=== PATIENT | male | born 1995 | race Caucasian/White ===

== ENCOUNTER 2016-07-26 00:25 | Observation (INO) | payer BC, OTHER ==
[2016-07-26] MEDS ORDERED: Sodium Chloride 0.9% 1000 ML 1,000 ML IV STA ×2 (00:26→01:10)
[2016-07-26] MEDS ORDERED: Sodium Chloride 0.9% 1000 ML 1,000 ML ONE ×3 (00:40→01:08)
[2016-07-26 00:41] LABS: VBG BASE EXCESS -6.1 (-2.0-2.0); VBG CARBOXYHEMOGLOBIN 3.7 % T HGB (0.0-6.9); VBG HCO3- 18.9 meq/L (22-28); VBG HEMOGLOBIN 14.4; VBG O2 SATURATION 83.1 (95-100); VBG POTASSIUM 5.3 (3.5-5.1); VBG pH 7.34 (7.32-7.42)
[2016-07-26 00:48] LABS: Mean Cell Volume 88.6 fl (78-100); Mean Corpuscular Hemoglobin 29.5 pg (26-32); Mean Platelet Volume 9.5 fl (6-9.5); Platelet Count 248 K/mm3 (150-450); Red Blood Count 4.75 M/mm3 (4.1-5.6); Red Cell Distribution Width 12.9 % (11.5-14.0); White Blood Count 7.3 K/mm3 (4.0-10.5)
[2016-07-26] MEDS ORDERED: SUBLIMAZE 100 MCG/2 ML IV ONE ×2 (00:55→02:03)
[2016-07-26] MEDS ORDERED: NITRO-BID 2% UD PACKETS TOP ONE (00:55)
[2016-07-26] MEDS ORDERED: NITRO-BID 2% UD PACKETS ONE (00:58)
[2016-07-26] MEDS ORDERED: SUBLIMAZE 100 MCG/2 ML ONE ×2 (00:58→02:05)
[2016-07-26 01:02] LABS: ALBUMIN 3.3 g/dL (3.4-5.0); ALKALINE PHOSPHATASE 91 U/L (46-116); ANION GAP 21.1 MEQ/L (5-15); BILIRUBIN,TOTAL 0.6 mg/dL (0.2-1.0); BLOOD UREA NITROGEN 18 mg/dL (9-20); CHLORIDE 94 mEq/L (98-107); Carbon Dioxide 21.2 mEq/L (21-32); MAGNESIUM 1.7 mg/dL (1.8-2.4); Potassium 5.2 mEq/L (3.5-5.1); SGOT/AST 13 U/L (15-37); SGPT/ALT 18 U/L (12-78); SODIUM 131 mEq/L (136-145); Total Protein 6.5 gm/dL (6.4-8.2)
[2016-07-26] MEDS ORDERED: NovoLOG Insulin SQ ONE (01:12)
[2016-07-26] MEDS ORDERED: NovoLOG Insulin ONE (01:16)
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
[2016-07-26 01:30] LABS: Collection Type CLEAN CATCH; Ph 5.5 (5-6)
[2016-07-26 01:31] LABS: COMPLETE URINE MICROSCOPIC? NO
[2016-07-26 01:38] LABS: Glucose 706 MG/DL (70-110)
[2016-07-26 02:26] LABS: Total Cells Counted 100
[2016-07-26 02:27] LABS: Platelet Estimate NORMAL (NORMAL)
[2016-07-26] MEDS ORDERED: TYLENOL 325 MG PO PRN (02:32)
[2016-07-26 07:05] LABS: ANION GAP 17.3 MEQ/L (5-15); BLOOD UREA NITROGEN 10 mg/dL (9-20); CHLORIDE 102 mEq/L (98-107); Carbon Dioxide 23.7 mEq/L (21-32); Glucose 275 MG/DL (70-110); SODIUM 139 mEq/L (136-145)
[2016-07-26] MEDS ORDERED: Lantus Insulin SQ SCH ×2 (07:30→22:00)
[2016-07-26] MEDS: NovoLOG Insulin SQ PRN ×2 (07:35→12:16)
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
--- NOTE | 2016-07-26 08:43 | XRAY ---
Indication: Chest pain. Comparison: February 12, 2016 Portable chest again demonstrates normal heart, lungs, and bony thorax.
[2016-07-26] MEDS: TORAdol 30 mg Injection IV PRN ×2 (08:53→15:24)
[2016-07-26 11:51] VITALS: BP 117/66; PULSE 85; O2SAT 97
--- NOTE | 2016-07-26 14:15 | PCM.DCORD ---
- Discharge Discharge Date: 07/26/16 Disposition: Home, Self-Care Condition: Fair Prescriptions: Colchicine 0.6 mg PO BID #60 capsule Ibuprofen 600 mg PO Q6H PRN #30 tablet PRN Reason: Pain Medications: Home Medications Insulin Glargine [Lantus Insulin] 22 units SQ QHS 03/06/16 [Confirmed ] Insulin Lispro [Humalog Kwikpen U-100] 0 unit SQ ACHS PRN 07/03/16 [Confirmed ] Insulin Glargine [Lantus Insulin] 28 units SQ QAM 07/26/16 [Confirmed 07/26/16] Active Inpatient Medications Acetaminophen (Tylenol 325 Mg) 650 mg PO Q4H PRN PRN PRN Reason: PAIN AND/OR FEVER Stop: 08/25/16 02:31 Last Admin: 07/26/16 04:28 Dose: 650 mg Sodium Chloride (Sodium Chloride 0.45% 1000 Ml) 1,000 mls @ 100 mls/hr IV .Q10H [facility] Stop: 08/25/16 02:31 Last Admin: 07/26/16 09:09 Dose: 100 mls/hr Insulin Aspart (Novolog Insulin) 0 unit SQ UD PRN PRN Reason: HYPERGLYCEMIA Stop: 08/25/16 03:56 Last Admin: 07/26/16 12:16 Dose: 7 unit Insulin Glargine (Lantus Insulin) 22 unit SQ HS [facility] Stop: 08/25/16 21:59 Insulin Glargine (Lantus Insulin) 28 unit SQ AMINSULIN@0730 [facility] Stop: 08/25/16 07:29 Last Admin: 07/26/16 07:35 Dose: 28 unit Ketorolac Tromethamine (Toradol 30 Mg Injection) 15 mg IV Q6H PRN PRN PRN Reason: PAIN Stop: 07/31/16 08:05 Last Admin: 07/26/16 08:53 Dose: 15 mg Follow up with: KWAME RIVERA NP [NON-STAFF PHY W/O PRIVILEGES] - 1 Week ADDY HESTER [NON-STAFF PHY W/O PRIVILEGES] - 1 Week ANANTH WHITMAN [CONSULTING PHYSICIAN] - 1 Week
== END 2016-07-26 16:07 | disposition home or self-care (01) ==
LOC: ED 00:25 → MED SURG 02:30
PROVIDERS: ADMIT Family Medicine; ATTEND Family Medicine
DX: R07.9 Chest pain, unspecified (principal); E10.65 Type 1 diabetes mellitus with hyperglycemia; Z79.4 Long term (current) use of insulin; F98.8 Other specified behavioral and emotional disorders with onset usually occurring in childhood and adolescence; Z72.0 Tobacco use
CPT/HCPCS: 36000; 36415; 71010; 80048; 80053; 80307; 81002; 82805; 82947; 82962; 83036; 83735; 84484; 85025; 93005; 93041; 93268; 93306; 94760; 96360; 96372; 96374; 96376; 99284; G0378; J1885; J3010

== ENCOUNTER 2016-07-27 20:40 | Emergency (ER) | payer BC, OTHER ==
[2016-07-27] MEDS ORDERED: Sodium Chloride 0.9% 1000 ML 1,000 ML IV STA ×2 (20:55→22:12)
[2016-07-27] MEDS ORDERED: Sodium Chloride 0.9% 1000 ML 1,000 ML ONE ×2 (21:04→22:19)
[2016-07-27 21:05] LABS: VBG BASE EXCESS -1.9 (-2.0-2.0); VBG CARBOXYHEMOGLOBIN 2.8 % T HGB (0.0-6.9); VBG HCO3- 22.3 meq/L (22-28); VBG O2 SATURATION 98.1 (95-100); VBG POTASSIUM 4.5 (3.5-5.1); VBG pH 7.4 (7.32-7.42)
[2016-07-27 21:07] LABS: Mean Cell Volume 85.8 fl (78-100); Mean Corpuscular Hemoglobin 29.3 pg (26-32); Mean Platelet Volume 9.1 fl (6-9.5); Platelet Count 273 K/mm3 (150-450); Red Blood Count 5.15 M/mm3 (4.1-5.6); Red Cell Distribution Width 12.9 % (11.5-14.0); White Blood Count 10.2 K/mm3 (4.0-10.5)
[2016-07-27 21:30] LABS: ALBUMIN 3.4 g/dL (3.4-5.0); ALKALINE PHOSPHATASE 116 U/L (46-116); ANION GAP 20.4 MEQ/L (5-15); BILIRUBIN,TOTAL 0.3 mg/dL (0.2-1.0); BLOOD UREA NITROGEN 12 mg/dL (9-20); CHLORIDE 97 mEq/L (98-107); Carbon Dioxide 21.8 mEq/L (21-32); Glucose 381 MG/DL (70-110); Potassium 4.5 mEq/L (3.5-5.1); SGOT/AST 27 U/L (15-37); SGPT/ALT 22 U/L (12-78); SODIUM 135 mEq/L (136-145); Total Protein 7.2 gm/dL (6.4-8.2)
[2016-07-27 21:54] LABS: ATYPICAL LYMPHS 48 %; BAND 6 % (0.0-2.0); Platelet Estimate NORMAL (NORMAL); Total Cells Counted 100
[2016-07-27] MEDS ORDERED: SUBLIMAZE 100 MCG/2 ML IV ONE (22:13)
[2016-07-27] MEDS ORDERED: SUBLIMAZE 100 MCG/2 ML ONE (22:19)
[2016-07-27 23:10] LABS: ACETAMINOPHEN < 2.0 ug/ml (10-30)
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
[2016-07-27] MEDS ORDERED: NovoLOG Insulin SQ ONE (23:30)
[2016-07-27 23:36] LABS: COMPLETE URINE MICROSCOPIC? NO; Collection Type VOID; Ph 7.5 (5-6)
[2016-07-27] MEDS ORDERED: Lantus Insulin ONE (23:48)
[2016-07-27 23:54] VITALS: PULSE 80
[2016-07-28 02:47] VITALS: O2SAT 98
[2016-07-28 03:36] VITALS: BP 130/80
--- NOTE | 2016-07-28 10:02 | XRAY ---
Indication: Chest and back pain. Short of breath. Multiple contiguous axial images obtained through the chest using 80 cc Isovue 370 contrast. Comparison: May 19, 2014 Lungs remain inflated without nodule, infiltrate, consolidation, or effusion. Heart is not enlarged. Aorta is normal in course and caliber. No pathologic mediastinal/hilar lymphadenopathy. Bony thorax intact. Limited upper abdomen including adrenal glands unremarkable. Impression: Stable negative CT chest with contrast exam. Comment: Preliminary interpretation was made by [facility]. No discrepancy. CT DI is 13.20
--- NOTE | 2016-07-28 10:02 | XRAY ---
Indication: Chest/back pain. Comparison: One day earlier. Portable chest again demonstrates normal heart, lungs, and bony thorax.
[2016-07-28] MEDS ORDERED: Lantus Insulin SQ ONE (23:31)
== END 2016-07-28 03:38 | disposition home or self-care (01) ==
LOC: ED 20:40
DX: R07.2 Precordial pain (principal); E10.69 Type 1 diabetes mellitus with other specified complication; F32.9 Major depressive disorder, single episode, unspecified
CPT/HCPCS: 36000; 36415; 71010; 71260; 80053; 80307; 81002; 82805; 82947; 82962; 83605; 84484; 85025; 86308; 87040; 87086; 90791; 93005; 93041; 94760; 96360; 96361; 96372; 96374; 99284; J3010; Q3014

== ENCOUNTER 2016-10-17 21:21 | Emergency (ER) | payer BC, OTHER ==
[2016-10-17] MEDS ORDERED: TYLENOL 325 MG PO ONE (21:38)
[2016-10-17] MEDS ORDERED: TYLENOL 325 MG ONE (21:41)
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
[2016-10-17] MEDS ORDERED: ULTRAM 50 MG PO ONE (22:53)
[2016-10-17] MEDS ORDERED: Rocephin 1000 MG INJ IM ONE (22:53)
[2016-10-17] MEDS ORDERED: XYLOCAINE 1% HCL 20 ML MDV ONE (23:06)
[2016-10-17] MEDS ORDERED: Rocephin 1000 MG INJ ONE (23:06)
[2016-10-17] MEDS ORDERED: ULTRAM 50 MG ONE (23:06)
[2016-10-17 23:40] VITALS: BP 135/79; PULSE 72; O2SAT 97
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
== END 2016-10-17 23:35 | disposition home or self-care (01) ==
LOC: ED 21:21
DX: S02.2XXA Fracture of nasal bones, initial encounter for closed fracture (principal); Y04.0XXA Assault by unarmed brawl or fight, initial encounter
CPT/HCPCS: 70450; 70486; 71100; 72125; 96372; 99284; J0696; A9270-GY

== ENCOUNTER 2017-05-13 15:00 | Inpatient (IN) | payer BC, OTHER ==
[2017-05-13] MEDS ORDERED: Lactated Ringers 1,000 ML IV ONE ×4 (15:23→16:03)
[2017-05-13] MEDS ORDERED: Sodium Chloride 0.9% 1000 ML 1,000 ML IV STA (15:23)
[2017-05-13] MEDS ORDERED: Sodium Chloride 0.9% 1000 ML 1,000 ML ONE (15:28)
[2017-05-13 15:30] LABS: Lactic Acid 1.7 (0.4-2.0)
[2017-05-13 15:31] LABS: VBG BASE EXCESS -18.9 (-2.0-2.0); VBG CARBOXYHEMOGLOBIN 1.6 % T HGB (0.0-6.9); VBG HCO3- 7.8 meq/L (22-28); VBG HEMOGLOBIN 16.1; VBG O2 SATURATION 90.7 (95-100); VBG POTASSIUM 4.3 (3.5-5.1)
[2017-05-13 15:32] LABS: VBG pH 7.16 (7.32-7.42)
[2017-05-13 15:38] LABS: BASOPHIL % 0.2 % (0.0-0.4); Granulocytes % 84.1 % (36.0-66.0); Lymphocytes % 11.3 % (24.0-44.0); Mean Cell Volume 85.1 fl (78-100); Mean Corpuscular Hemoglobin 27.8 pg (26-32); Mean Platelet Volume 9.7 fl (6-9.5); Monocytes % 4.4 % (0.0-12.0); Platelet Count 295 K/mm3 (150-450); Red Blood Count 5.43 M/mm3 (4.1-5.6); Red Cell Distribution Width 13.3 % (11.5-14.0); White Blood Count 8.1 K/mm3 (4.0-10.5)
[2017-05-13] MEDS ORDERED: NovoLIN R ONE ×3 (15:44→22:36)
[2017-05-13] MEDS ORDERED: Sodium Chloride 0.9% 100 ML IVPB 100 ML IV ONE ×3 (15:45→22:36)
[2017-05-13] MEDS ORDERED: NOVOLIN R INSULIN (FOR DRIPS)** 100 UNITS in Sodium Chloride 0.9% 100 ML IVPB 100 ML IV SCH (15:45)
[2017-05-13 15:48] LABS: Bilirubin NEGATIVE (NEGATIVE); Blood NEGATIVE Ery/ul (0-5); COMPLETE URINE MICROSCOPIC? YES; Collection Type CCMS; Glucose 1000 mg/dL (NEGATIVE); Leukocyte Esterase NEGATIVE (NEGATIVE)
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
[2017-05-13 15:59] LABS: ALBUMIN 4.1 g/dL (3.4-5.0); ALKALINE PHOSPHATASE 174 U/L (46-116); ANION GAP 35.1 MEQ/L (5-15); BLOOD UREA NITROGEN 21 mg/dL (9-20); CHLORIDE 93 mEq/L (98-107); Glucose 342 MG/DL (70-110); SGOT/AST 23 U/L (15-37); SGPT/ALT 11 U/L (12-78); SODIUM 133 mEq/L (136-145); Total Protein 8.7 gm/dL (6.4-8.2)
[2017-05-13] MEDS ORDERED: ROCEPHIN 1 Gm-D5w 50 ml Bag** 1 G/50 ML IVPB IV STA (15:59)
[2017-05-13] MEDS ORDERED: CLINDAMYCIN-D5W 900 MG/50 ML*** 900 MG/50 ML BAG IV STA (15:59)
[2017-05-13 16:00] LABS: Bacteria FEW /HPF (NEGATIVE); Epithelial Cells FEW /HPF (FEW); Mucus SLIGHT /HPF (NEGATIVE); WBC 0-2 /HPF (0-5)
[2017-05-13] MEDS ORDERED: ROCEPHIN 1 Gm-D5w 50 ml Bag** 1 G/50 ML IVPB IV ONE (16:03)
[2017-05-13 16:04] LABS: Carbon Dioxide 9.8 mEq/L (21-32)
[2017-05-13 16:15] LABS: ADD URINE CULTURE? NO (NO)
[2017-05-13] MEDS ORDERED: CLINDAMYCIN-D5W 900 MG/50 ML*** 900 MG/50 ML BAG IV ONE (16:34)
[2017-05-13] MEDS ORDERED: Sodium Chloride 0.9% 1000 ML 1,000 ML IV SCH (17:18)
[2017-05-13] MEDS ORDERED: TYLENOL 325 MG PO PRN (17:18)
[2017-05-13] MEDS ORDERED: D5W/0.45NS W/ 20mEq KCl 1000 ML 1,000 ML IV ONE (17:28)
[2017-05-13] MEDS: D5W/0.45NS W/ 20mEq KCl 1000 ML 1,000 ML IV SCH (17:54)
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
--- NOTE | 2017-05-13 19:56 | XRAY ---
Indication: DKA. Comparison: July 27, 2016. Portable chest again demonstrates normal heart, lungs, and bony thorax.
[2017-05-13 21:27] LABS: VBG BASE EXCESS -3.4 (-2.0-2.0); VBG CARBOXYHEMOGLOBIN 1.8 % T HGB (0.0-6.9); VBG HCO3- 21.4 meq/L (22-28); VBG O2 SATURATION 71.2 (95-100); VBG POTASSIUM 3.7 (3.5-5.1); VBG pH 7.37 (7.32-7.42)
[2017-05-13 21:49] LABS: ANION GAP 16.7 MEQ/L (5-15); BLOOD UREA NITROGEN 14 mg/dL (9-20); CHLORIDE 100 mEq/L (98-107); Carbon Dioxide 22.1 mEq/L (21-32); Glucose 259 MG/DL (70-110); PHOSPHOROUS 2.1 mg/dL (2.6-4.7); Potassium 3.7 mEq/L (3.5-5.1); SODIUM 135 mEq/L (136-145)
[2017-05-13] MEDS: Pepcid 20 MG VIAL IV SCH (23:01)
[2017-05-13] MEDS: CLINDAMYCIN-D5W 900 MG/50 ML*** 900 MG/50 ML BAG IV SCH (23:01)
[2017-05-13] MEDS ORDERED: NOVOLIN R INSULIN (FOR DRIPS)** 100 UNITS in Sodium Chloride 0.9% 100 ML IVPB 100 ML IV PRN (23:38)
[2017-05-14] MEDS: D5W/0.45NS W/ 20mEq KCl 1000 ML 1,000 ML IV SCH ×2 (01:30→08:14)
[2017-05-14 05:32] LABS: VBG BASE EXCESS -2.6 (-2.0-2.0); VBG CARBOXYHEMOGLOBIN 2.8 % T HGB (0.0-6.9); VBG HCO3- 23.2 meq/L (22-28); VBG HEMOGLOBIN 12.7; VBG O2 SATURATION 79.8 (95-100); VBG POTASSIUM 3.8 (3.5-5.1); VBG pH 7.34 (7.32-7.42)
[2017-05-14 06:00] LABS: BASOPHIL % 0.5 % (0.0-0.4); Eosinophil % 0.9 % (0.00-5.0); Granulocytes % 33.6 % (36.0-66.0); Lymphocytes % 47.7 % (24.0-44.0); Mean Cell Volume 84.4 fl (78-100); Mean Corpuscular Hemoglobin 27.8 pg (26-32); Mean Platelet Volume 9.2 fl (6-9.5); Monocytes % 17.3 % (0.0-12.0); Platelet Count 256 K/mm3 (150-450); Red Blood Count 4.49 M/mm3 (4.1-5.6); Red Cell Distribution Width 13.4 % (11.5-14.0); White Blood Count 4.4 K/mm3 (4.0-10.5)
[2017-05-14 06:28] LABS: ALBUMIN 2.6 g/dL (3.4-5.0); ALKALINE PHOSPHATASE 108 U/L (46-116); ANION GAP 11.7 MEQ/L (5-15); BLOOD UREA NITROGEN 10 mg/dL (9-20); CHLORIDE 103 mEq/L (98-107); Carbon Dioxide 24.7 mEq/L (21-32); Glucose 211 MG/DL (70-110); Potassium 3.9 mEq/L (3.5-5.1); SGOT/AST 12 U/L (15-37); SGPT/ALT 13 U/L (12-78); SODIUM 136 mEq/L (136-145); Total Protein 6.1 gm/dL (6.4-8.2)
[2017-05-14] MEDS: CLINDAMYCIN-D5W 900 MG/50 ML*** 900 MG/50 ML BAG IV SCH ×2 (06:35→13:04)
[2017-05-14] MEDS: POTASSIUM CHLORIDE 20 mEq IN WATER 100ML 20 MEQ/100 ML BAG IV SCH ×2 (08:05→11:09)
[2017-05-14] MEDS ORDERED: NovoLOG Insulin SQ PRN (08:56)
[2017-05-14] MEDS: Pepcid 20 MG VIAL IV SCH (09:19)
[2017-05-14] MEDS ORDERED: ROCEPHIN 1 Gm-D5w 50 ml Bag** 1 G/50 ML IVPB IV SCH (10:00)
[2017-05-14] MEDS ORDERED: Lantus Insulin SQ SCH ×2 (10:00→22:00)
[2017-05-14 12:46] VITALS: BP 138/88; PULSE 77; O2SAT 98
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
[2017-05-15] MEDS ORDERED: FLUCELVAX QUAD 2017-2018 SYR IM ONE (10:00)
== END 2017-05-14 15:00 | disposition home or self-care (01) | DRG 639 ==
LOC: ED 15:00 → ICU 17:16
PROVIDERS: ADMIT Family Medicine; ATTEND Family Medicine
DX: E10.10 Type 1 diabetes mellitus with ketoacidosis without coma (principal); K04.7 Periapical abscess without sinus; F90.9 Attention-deficit hyperactivity disorder, unspecified type; Z89.422 Acquired absence of other left toe(s)
CPT/HCPCS: 36000; 36415; 71010; 80048; 80053; 81000; 82550; 82805; 82947; 82962; 83605; 83735; 84100; 85025; 87040; 93005; 93041; 96360; 96361; 96365; 96368; 99285; J0696; J1815; J3480; A9270-GY

== ENCOUNTER 2017-07-21 16:12 | Emergency (ER) | payer BC, OTHER ==
[2017-07-21 16:23] VITALS: BP 137/88; PULSE 98; O2SAT 98
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
== END 2017-07-21 16:55 | disposition home or self-care (01) ==
LOC: ED 16:12
DX: K13.0 Diseases of lips (principal); R51 Headache; E10.9 Type 1 diabetes mellitus without complications; Z79.4 Long term (current) use of insulin

== ENCOUNTER 2017-07-23 12:39 | Emergency (ER) | payer BC, OTHER ==
[2017-07-23] MEDS ORDERED: ZOVIRAX 200 MG ONE (12:49)
[2017-07-23 12:50] VITALS: BP 134/89; PULSE 78; O2SAT 96
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
[2017-07-23] MEDS ORDERED: ZOVIRAX 800 MG PO SCH (15:00)
== END 2017-07-23 13:05 | disposition home or self-care (01) ==
LOC: ED 12:39
DX: B00.1 Herpesviral vesicular dermatitis (principal)
CPT/HCPCS: 99283; A9270-GY

== ENCOUNTER 2017-09-18 13:39 | Emergency (ER) | payer BC, OTHER ==
[2017-09-18] MEDS ORDERED: MOTRIN 400 MG PO ONE (14:38)
[2017-09-18] MEDS ORDERED: MOTRIN 400 MG ONE (14:40)
[2017-09-18 14:51] VITALS: BP 128/80; PULSE 94; O2SAT 98
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
== END 2017-09-18 15:09 | disposition home or self-care (01) ==
LOC: ED 13:39
DX: M54.32 Sciatica, left side (principal); E11.9 Type 2 diabetes mellitus without complications; Z79.4 Long term (current) use of insulin
CPT/HCPCS: 99282; A9270-GY

== ENCOUNTER 2017-11-27 20:26 | Emergency (ER) | payer BC, OTHER ==
[2017-11-27 20:38] VITALS: BP 130/83; PULSE 83; O2SAT 97
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
[2017-11-27] MEDS ORDERED: DELTASONE 20 MG PO ONE (21:16)
[2017-11-27] MEDS ORDERED: DELTASONE 20 MG ONE (21:18)
== END 2017-11-27 21:23 | disposition home or self-care (01) ==
LOC: ED 20:26
DX: L25.9 Unspecified contact dermatitis, unspecified cause (principal)
CPT/HCPCS: 99283; A9270-GY

== ENCOUNTER 2017-11-29 22:48 | Observation (INO) | payer BC, OTHER ==
[2017-11-29] MEDS ORDERED: Nitrostat 0.4 MG (ED) SL ONE ×2 (23:13→23:22)
[2017-11-29] MEDS ORDERED: BABY ASPIRIN 81 MG CHEW PO ONE (23:13)
[2017-11-29] MEDS ORDERED: Sodium Chloride 0.9% 1000 ML 1,000 ML IV STA ×2 (23:13→23:56)
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
[2017-11-29] MEDS ORDERED: Sodium Chloride 0.9% 1000 ML 1,000 ML ONE ×2 (23:22→23:54)
[2017-11-29] MEDS ORDERED: BABY ASPIRIN 81 MG CHEW ONE (23:22)
[2017-11-29 23:26] LABS: BASOPHIL % 0.3 % (0.0-0.4); Basophil (Absolute #) 0.03 (0-0.4); Eosinophil % 7.5 % (0.00-5.0); Eosinophil (Absolute #) 0.67 (0-0.5); Granulocyte Absolute (ANC) 4.39 (1.4-6.9); Granulocytes % 49.1 % (36.0-66.0); Hematocrit 45.5 % (42-50); Hemoglobin 15.7 gm/dl (12.5-18.0); Lymphocyte (Absolute #) 3.37 (1.0-4.6); Lymphocytes % 37.7 % (24.0-44.0); Mean Cell Volume 85.5 fl (78-100); Mean Corpuscular Hemoglobin 29.5 pg (26-32); Mean Corpuscular Hgb Concent. 34.5 g/dl (32-36); Mean Platelet Volume 9.9 fl (6-9.5); Monocyte (Absolute #) 0.48 (0.0-1.3); Monocytes % 5.4 % (0.0-12.0); Platelet Count 317 K/mm3 (150-450); Red Blood Count 5.32 M/mm3 (4.1-5.6); Red Cell Distribution Width 12.9 % (11.5-14.0); White Blood Count 8.9 K/mm3 (4.0-10.5)
[2017-11-29 23:39] LABS: ALBUMIN 4.4 g/dL (3.5-5.0); ALKALINE PHOSPHATASE 81 U/L (38-126); ANION GAP 18.3 MEQ/L (5-15); BLOOD UREA NITROGEN 18 mg/dL (9-20); CHLORIDE 90 mmol/L (98-107); Calcium 9.7 mg/dL (8.4-10.2); Carbon Dioxide 24 mmol/L (22-30); Creatinine 1 0.98 mg/dL (0.66-1.25); Potassium 4.8 mmol/L (3.5-5.1); SGOT/AST 13 U/L (17-59); SGPT/ALT 13 U/L (0-50); SODIUM 128 mmol/L (137-145); Total Protein 7.2 g/dL (6.3-8.2)
[2017-11-29 23:41] LABS: INR 0.96 (0.8-3.0)
[2017-11-29 23:48] LABS: D-DIMER QUANTITATION < 215 ng/mL (215-500)
[2017-11-29 23:49] LABS: Glucose 784 mg/dL (74-106)
[2017-11-29] MEDS ORDERED: NovoLIN R IV ONE (23:53)
[2017-11-29] MEDS ORDERED: NovoLIN R ONE (23:59)
[2017-11-30 00:31] LABS: Appearance CLEAR (CLEAR); Bilirubin NEGATIVE (NEGATIVE); Blood NEGATIVE Ery/ul (0-5); Glucose 1000 mg/dL (NEGATIVE); Ketones NEGATIVE (NEGATIVE); Leukocyte Esterase NEGATIVE (NEGATIVE); Nitrite NEGATIVE (NEGATIVE); Protein,Urine Dip NEGATIVE (Negative); Urobilinogen NORMAL mg/dL (0-1)
[2017-11-30 00:38] LABS: VBG BASE EXCESS 1.3 (-2.0-2.0); VBG CARBOXYHEMOGLOBIN 1.6 % T HGB (0.0-6.9); VBG HCO3- 25.9 meq/L (22-28); VBG O2 SATURATION 96.1 (95-100); VBG POTASSIUM 3.3 (3.5-5.1); VBG pH 7.42 (7.32-7.42)
[2017-11-30 00:44] LABS: Amphetamine,Urine NEGATIVE (NEGATIVE); Barbiturate,Urine NEGATIVE (NEGATIVE); Benzodiazepine,Urine NEGATIVE (NEGATIVE); Cocaine,Urine NEGATIVE (NEGATIVE); Methadone,Urine NEGATIVE (NEGATIVE); Opiate,Urine NEGATIVE (NEGATIVE); PCP,Urine NEGATIVE (NEGATIVE); THC,Urine NEGATIVE (NEGATIVE)
[2017-11-30] MEDS ORDERED: NOVOLIN R INSULIN (FOR DRIPS)** 100 UNITS in Sodium Chloride 0.9% 100 ML IVPB 100 ML IV SCH (00:45)
[2017-11-30] MEDS ORDERED: Sodium Chloride 0.9% 100 ML IVPB 100 ML IV ONE (00:46)
[2017-11-30] MEDS ORDERED: NovoLIN R ONE (00:46)
[2017-11-30] MEDS: D5W/0.45NS W/ 20mEq KCl 1000 ML 1,000 ML IV SCH ×2 (01:27→06:52)
[2017-11-30 01:33] LABS: ANION GAP 14.9 MEQ/L (5-15); BLOOD UREA NITROGEN 17 mg/dL (9-20); CHLORIDE 102 mmol/L (98-107); Calcium 9.5 mg/dL (8.4-10.2); Carbon Dioxide 28 mmol/L (22-30); Glucose 132 mg/dL (74-106); PHOSPHOROUS 3.7 mg/dL (2.5-4.5); Potassium 3.7 mmol/L (3.5-5.1); SODIUM 141 mmol/L (137-145)
[2017-11-30] MEDS ORDERED: TYLENOL 325 MG PO PRN (02:06)
[2017-11-30] MEDS ORDERED: Zofran 4 MG/2 ML VIAL IV PRN (02:06)
[2017-11-30] MEDS ORDERED: Nitrostat 0.4 MG Tablet SL PRN (02:10)
[2017-11-30] MEDS ORDERED: Sodium Chloride 0.9% 1000 ML 1,000 ML IV SCH (02:15)
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
--- NOTE | 2017-11-30 09:46 | XRAY ---
Indication: Chest pain. Comparison: May 13, 2017. Portable chest again demonstrates normal heart, lungs, and bony thorax.
[2017-11-30] MEDS ORDERED: DELTASONE 20 MG PO SCH (10:00)
[2017-11-30] MEDS ORDERED: ECOTRIN 81 MG PO SCH (10:00)
[2017-11-30] MEDS ORDERED: Ecotrin 325 MG PO SCH (10:00)
[2017-11-30] MEDS ORDERED: Lantus Insulin SQ SCH ×2 (10:00→22:00)
[2017-11-30] MEDS: NovoLIN R SQ PRN ×2 (11:34→16:10)
[2017-11-30] MEDS: BENADRYL 25 MG CAPSULE PO PRN ×2 (12:02→20:13)
[2017-11-30 15:37] VITALS: BP 117/68; PULSE 68; O2SAT 97
[2017-11-30] MEDS: Lopressor 25MG Tab PO SCH ×2 (17:40→20:13)
--- NOTE | 2017-11-30 19:13 | PCM.DCORD ---
- Discharge Discharge Date: 11/30/17 Disposition: Home, Self-Care Condition: Stable Prescriptions: New Diphenhydramine HCl 25 mg [Benadryl 25 mg Capsule] 25 mg PO Q4H PRN PRN capsule PRN Reason: Itching Aspirin EC 81 mg [Ecotrin 81 mg] 81 mg PO DAILY #30 Triamcinolone 0.1% Cream [Kenalog 0.1% Cream 15 gm] 1 applic TP BID PRN #80 g PRN Reason: Itching Metoprolol Tartrate 25 mg [Lopressor 25MG Tab] 12.5 mg PO BID #15 tab Continue Insulin Glargine [Lantus Insulin] 22 units SQ QAM Insulin Lispro [Humalog Kwikpen U-100] 0 unit SQ ACHS PRN PRN Reason: Diabetes Insulin Glargine [Lantus Insulin] 28 units SQ HS Discontinued Ibuprofen [IBUPROFEN 400 MG TABLET] 1 tablet PO TID PRN #14 tablet Prednisone 20 mg [Deltasone 20 mg] 3 tab PO DAILY #12 tablet Additional Instructions: Follow up with Dr. Grigsby after stress test complete. Call for appointment. have fasting lipid panel drawn in the am Follow up with: CUBA GRIGSBY [ACTIVE STAFF] - Call for Appointment ADDY HESTER [NON-STAFF PHY W/O PRIVILEGES] - 1 Week
--- NOTE | 2017-12-01 08:13 | ECHO ---
Transthoracic echocardiographic examination and color Doppler was done on 11/30/2017. INDICATION: Chest pain. IMPRESSION: 1) NO REGIONAL WALL MOTION ABNORMALITY. ESTIMATED GLOBAL LEFT VENTRICULAR EJECTION FRACTION OF AROUND 60%. 2) TRACE TRICUSPID REGURGITATION. RIGHT VENTRICULAR SYSTOLIC PRESSURE OF 32 MM OF MERCURY. The left ventricle is visualized and demonstrated adequate motion of all the segments. Estimated global left ventricular ejection fraction 60%. The left ventricular thickness is normal. The mitral valve is seen and this opens adequately. There is no mitral regurgitation. Left atrium is normal. The aortic valve opens adequately. The right sided chambers are normal. There is trace tricuspid regurgitation. The right ventricular systolic pressure of 32 mm of Mercury. No pericardial effusion is seen.
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
== END 2017-11-30 20:30 | disposition home or self-care (01) ==
LOC: ED 22:48 → MED SURG 11-30 03:01
PROVIDERS: ADMIT Family Medicine; ATTEND Family Medicine
DX: R07.9 Chest pain, unspecified (principal); I42.9 Cardiomyopathy, unspecified; E10.8 Type 1 diabetes mellitus with unspecified complications; Z87.891 Personal history of nicotine dependence
CPT/HCPCS: 36000; 36415; 71045; 80048; 80053; 80307; 81002; 82805; 82962; 83036; 84100; 84484; 85025; 85379; 85610; 93005; 93268; 93306; 96360; 96361; 96365; 96374; 99285; A9270-GY; G0378

== ENCOUNTER 2018-03-19 15:20 | Emergency (ER) | payer BC, OTHER ==
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
[2018-03-19 17:06] LABS: BASOPHIL % 0.2 % (0.0-0.4); Basophil (Absolute #) 0.02 (0-0.4); Eosinophil % 0.2 % (0.00-5.0); Eosinophil (Absolute #) 0.03 (0-0.5); Granulocyte Absolute (ANC) 9.79 (1.4-6.9); Granulocytes % 74.3 % (36.0-66.0); Hematocrit 45.3 % (42-50); Hemoglobin 15.4 gm/dl (12.5-18.0); Lymphocyte (Absolute #) 2.84 (1.0-4.6); Lymphocytes % 21.6 % (24.0-44.0); Mean Cell Volume 86.6 fl (78-100); Mean Corpuscular Hemoglobin 29.4 pg (26-32); Mean Platelet Volume 8.8 fl (6-9.5); Monocyte (Absolute #) 0.49 (0.0-1.3); Monocytes % 3.7 % (0.0-12.0); Platelet Count 358 K/mm3 (150-450); Red Blood Count 5.23 M/mm3 (4.1-5.6); Red Cell Distribution Width 13.8 % (11.5-14.0); White Blood Count 13.2 K/mm3 (4.0-10.5)
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
[2018-03-19 17:24] LABS: ALBUMIN 4.6 g/dL (3.5-5.0); ALKALINE PHOSPHATASE 107 U/L (38-126); ANION GAP 15.4 MEQ/L (5-15); BLOOD UREA NITROGEN 25 mg/dL (9-20); CHLORIDE 104 mmol/L (98-107); Calcium 9.9 mg/dL (8.4-10.2); Carbon Dioxide 27 mmol/L (22-30); Creatinine 1 1.24 mg/dL (0.66-1.25); Glucose 134 mg/dL (74-106); SGOT/AST 16 U/L (17-59); SGPT/ALT 17 U/L (0-50); SODIUM 142 mmol/L (137-145); Total Protein 7.5 g/dL (6.3-8.2)
[2018-03-19 18:09] LABS: Appearance CLEAR (CLEAR); Bilirubin NEGATIVE (NEGATIVE); Blood NEGATIVE Ery/ul (0-5); Glucose 1000 mg/dL (NEGATIVE); Ketones SMALL (NEGATIVE); Leukocyte Esterase NEGATIVE (NEGATIVE); Nitrite NEGATIVE (NEGATIVE); Protein,Urine Dip NEGATIVE (Negative); Urobilinogen NORMAL mg/dL (0-1)
[2018-03-19 18:26] VITALS: BP 131/91; PULSE 91; O2SAT 97
== END 2018-03-19 18:25 | disposition home or self-care (01) ==
LOC: ED 15:20
DX: S39.92XA Unspecified injury of lower back, initial encounter (principal); M54.5 Low back pain; M79.605 Pain in left leg; R07.89 Other chest pain; V86.55XA Driver of 3- or 4- wheeled all-terrain vehicle (ATV) injured in nontraffic accident, initial encounter
CPT/HCPCS: 36415; 71046; 72131; 73552; 76376; 80053; 81002; 85025; 99284

== ENCOUNTER 2018-08-20 13:24 | Emergency (ER) | payer BC, OTHER ==
[2018-08-20] MEDS ORDERED: Sodium Chloride 0.9% 1000 ML 1,000 ML IV STA ×2 (14:05→14:07)
[2018-08-20] MEDS ORDERED: Zofran 4 MG/2 ML VIAL IV ONE (14:05)
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
[2018-08-20 14:27] LABS: VBG BASE EXCESS -0.5 (-2.0-2.0); VBG CARBOXYHEMOGLOBIN 1.9 % T HGB (0.0-6.9); VBG HCO3- 25.4 meq/L (22-28); VBG HEMOGLOBIN 15.4; VBG O2 SATURATION 48.4 (95-100); VBG POTASSIUM 3.8 (3.5-5.1); VBG pH 7.36 (7.32-7.42)
[2018-08-20 14:40] LABS: BASOPHIL % 0.1 % (0.0-0.4); Basophil (Absolute #) 0.01 (0-0.4); Eosinophil % 0.5 % (0.00-5.0); Eosinophil (Absolute #) 0.04 (0-0.5); Granulocyte Absolute (ANC) 6.49 (1.4-6.9); Granulocytes % 83.1 % (36.0-66.0); Hemoglobin 15.1 gm/dl (12.5-18.0); Lymphocyte (Absolute #) 0.84 (1.0-4.6); Lymphocytes % 10.7 % (24.0-44.0); Mean Corpuscular Hemoglobin 28.6 pg (26-32); Mean Corpuscular Hgb Concent. 32.1 g/dl (32-36); Mean Platelet Volume 9.4 fl (6-9.5); Monocyte (Absolute #) 0.44 (0.0-1.3); Monocytes % 5.6 % (0.0-12.0); Platelet Count 358 K/mm3 (150-450); Red Blood Count 5.28 M/mm3 (4.1-5.6); Red Cell Distribution Width 14.9 % (11.5-14.0); White Blood Count 7.8 K/mm3 (4.0-10.5)
[2018-08-20] MEDS ORDERED: Zofran 4 MG/2 ML VIAL ONE (14:48)
[2018-08-20] MEDS ORDERED: Sodium Chloride 0.9% 1000 ML 2,000 ML ONE (14:48)
[2018-08-20 14:57] LABS: ALBUMIN 4.2 g/dL (3.5-5.0); ALKALINE PHOSPHATASE 153 U/L (38-126); ANION GAP 17.5 MEQ/L (5-15); BLOOD UREA NITROGEN 14 mg/dL (9-20); CHLORIDE 102 mmol/L (98-107); Calcium 9.5 mg/dL (8.4-10.2); Carbon Dioxide 26 mmol/L (22-30); Glucose 144 mg/dL (74-106); Potassium 3.8 mmol/L (3.5-5.1); SGOT/AST 72 U/L (17-59); SODIUM 142 mmol/L (137-145); Total Protein 7.3 g/dL (6.3-8.2)
[2018-08-20 15:04] LABS: SGPT/ALT 51 U/L (0-50)
[2018-08-20] MEDS ORDERED: Sodium Chloride 0.9% 1000 ML 1,000 ML ONE (15:55)
[2018-08-20 16:17] LABS: Appearance CLEAR (CLEAR); Bilirubin NEGATIVE (NEGATIVE); Blood NEGATIVE Ery/ul (0-5); Glucose >=500 mg/dL (NEGATIVE); Ketones TRACE (NEGATIVE); Leukocyte Esterase NEGATIVE (NEGATIVE); Mucus SLIGHT /HPF (NEGATIVE); Nitrite NEGATIVE (NEGATIVE); Protein,Urine Dip NEGATIVE (Negative); Specific Gravity 1.032 (1.005-1.025); Urobilinogen NEGATIVE mg/dL (0-1)
[2018-08-20 16:28] LABS: Bacteria RARE /HPF (NEGATIVE)
[2018-08-20 16:53] VITALS: BP 142/88; PULSE 90; O2SAT 99
== END 2018-08-20 16:54 | disposition home or self-care (01) ==
LOC: ED 13:24
DX: E10.65 Type 1 diabetes mellitus with hyperglycemia (principal); R11.2 Nausea with vomiting, unspecified; F41.8 Other specified anxiety disorders; Z72.0 Tobacco use
CPT/HCPCS: 36000; 36415; 80053; 81001; 82805; 82947; 85025; 93005; 96360; 96361; 96374; 96375; 99284; J2405

== ENCOUNTER 2019-01-23 18:37 | Emergency (ER) | payer BC ==
[2019-01-23 18:52] VITALS: BP 141/89; PULSE 108; O2SAT 96
[2019-01-23] MEDS ORDERED: TYLENOL 325 MG PO ONE (19:14)
[2019-01-23] MEDS ORDERED: TYLENOL 325 MG ONE (19:17)
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
== END 2019-01-23 19:27 | disposition home or self-care (01) ==
LOC: ED 18:37
DX: L55.9 Sunburn, unspecified (principal); E10.9 Type 1 diabetes mellitus without complications; Z79.4 Long term (current) use of insulin; F41.0 Panic disorder [episodic paroxysmal anxiety]; F32.9 Major depressive disorder, single episode, unspecified; F60.3 Borderline personality disorder
CPT/HCPCS: 99283; A9270-GY

== ENCOUNTER 2019-05-05 11:03 | Emergency (ER) | payer BC ==
[2019-05-05 11:13] VITALS: BP 145/89
[2019-05-05] MEDS ORDERED: Celestone Soluspan 6MG/ML IM ONE (11:15)
[2019-05-05] MEDS ORDERED: Celestone Soluspan 6MG/ML ONE (11:19)
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
[2019-05-05 12:02] VITALS: PULSE 100; O2SAT 97
== END 2019-05-05 12:03 | disposition home or self-care (01) ==
LOC: ED 11:03
DX: L23.7 Allergic contact dermatitis due to plants, except food (principal)
CPT/HCPCS: 96372; 99284; J0702

== ENCOUNTER 2019-05-07 11:39 | Emergency (ER) | payer BC ==
[2019-05-07 12:01] VITALS: O2SAT 97
[2019-05-07 13:25] VITALS: BP 139/83; PULSE 103
--- NOTE | 2019-05-07 13:40 | XRAY ---
Indication: Pain following fall. Comparison: None 3 views of the left hand demonstrates tiny distal radius bone island. No other bony, articular, or soft tissue abnormalities.
--- NOTE | 2019-05-07 13:54 | ERPHSYRPT ---
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 Was seen at [facility] and lab work was done. Pt woke this am with pain, swelling, and bruising to left palm, wrist, and fingers. Describes pain as pulsating. Triage Nursing Assessment: Bruising and swelling to left lateral palm. Radial pulse present and strong. Cap refill <3 sec. Physician History: 23 y/o white male injured left hand yesterday. seen at [facility]. lab work performed because he fell on a needle. pt hand persistent pain left hand with bruising. tetanus utd. 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 escitalopram oxalate [From Lexapro] Allergy (Verified 05/07/19 12:02) sertraline HCl [From Zoloft] Allergy (Verified 05/07/19 12:02) Home Medications: Insulin Aspart [NovoLOG Insulin] 1 units SQ UD 03/19/18 [History] Gabapentin 400 mg PO TID 05/05/19 [History] Lisinopril 5 mg PO DAILY 05/05/19 [History] Hx Tetanus, Diphtheria Vaccination/Date Given: (unknown) Hx Influenza Vaccination/Date Given: Yes Hx Pneumococcal Vaccination/Date Given: Yes - Review of Systems Constitutional: No Symptoms Eyes: No Symptoms Ears, Nose, & Throat: No Symptoms Respiratory: No Symptoms Cardiac: No Symptoms Abdominal/Gastrointestinal: No Symptoms Genitourinary Symptoms: No Symptoms Musculoskeletal: Fall, Injury (left hand) Skin: No Symptoms Neurological: No Symptoms Psychological: No Symptoms Endocrine: No Symptoms Hematologic/Lymphatic: No Symptoms Immunological/Allergic: No Symptoms All Other Systems: Reviewed and Negative - Past Medical History Pertinent Past Medical History: Yes Neurological History: No Pertinent History ENT History: No Pertinent History Cardiac History: Hypertension Respiratory History: No Pertinent History Endocrine Medical History: Diabetes Type I Musculoskeletal History: Fractures, Other GI Medical History: No Pertinent History History: No Pertinent History Psycho-Social History: Anxiety, Attention Deficit Disorder, Depression, Other Male Reproductive Disorders: No Pertinent History Other Medical History: self harming behavior- cutting left arm 2012, ADHD, Borderline Personality Disorder. pt states he has a cardiac problem but is unsure what it is. was scheduled for outpt echo but missed appt - Past Surgical History Past Surgical History: Yes Neuro Surgical History: No Pertinent History Cardiac: No Pertinent History Respiratory: No Pertinent History Gastrointestinal: No Pertinent History Genitourinary: No Pertinent History Musculoskeletal: Amputation Male Surgical History: No Pertinent History Other Surgical History: Partial amputation of left foot 2014 - Social History Smoking Status: Current every day smoker How long have you smoked: 5 Exposure to second hand smoke: No Drug Use: none Patient Lives Alone: No - Nursing Vital Signs Nursing Vital Signs: Initial Vital Signs Temperature 97.9 F 05/07/19 11:53 Pulse Rate 102 H 05/07/19 11:53 Respiratory Rate 16 05/07/19 11:53 Blood Pressure 146/84 05/07/19 11:53 O2 Sat by Pulse Oximetry 97 05/07/19 11:53 Pain Scale Pain Intensity 5 - Physical Exam General Appearance: no apparent distress, alert, anxiety Eyes, Ears, Nose, Throat Exam: normal ENT inspection, moist mucous membranes Neck Exam: normal inspection, non-tender, supple, full range of motion Cardiovascular/Respiratory Exam: chest non-tender Abdominal Exam: non-tender Back Exam: normal inspection, normal range of motion, No CVA tenderness, No vertebral tenderness Shoulder Exam: normal inspection, non-tender, no evidence of injury, normal ROM Elbow/Forearm Exam: normal inspection, non-tender, no evidence of injury, normal ROM Wrist Exam: normal inspection, non-tender, no evidence of injury, normal ROM Hand Exam: normal ROM, ecchymosis (thenar eminence), soft tissue tenderness Neuro/Tendon Exam: normal sensation, normal motor functions, normal tendon functions Mental Status Exam: alert, oriented x 3, cooperative Skin Exam: ecchymosis (thenar eminence left hand) SpO2 Interpretation: normal SpO2: 97 O2 Delivery: Room Air Ordered Tests: Active Orders 24 hr Category Date Time Status HAND (MINIMUM 3 VIEWS) Stat Exams 05/07/19 13:04 Completed - Progress Progress Note: 05/07/19 13:53 xray left hand- no acute fx or dislocation Counseled pt/family regarding: diagnosis, need for follow-up, rad results - Departure Departure Disposition: Home Clinical Impression: Contusion of left hand Condition: Stable Critical Care Time: No Referrals: DOCTOR,NO FAMILY [Primary Care Provider] - Additional Instructions: ice pack to area 3 times daily for 3 days. tylenol and ibuprofen for pain
== END 2019-05-07 14:18 | disposition home or self-care (01) ==
LOC: ED 11:39
DX: S60.222D Contusion of left hand, subsequent encounter (principal); W19.XXXD Unspecified fall, subsequent encounter
CPT/HCPCS: 73130; 99283

== ENCOUNTER 2020-01-23 03:17 | Emergency (ER) | payer BC ==
[2020-01-23] MEDS ORDERED: BABY ASPIRIN 81 MG CHEW PO ONE (03:18)
[2020-01-23 03:36] LABS: Absolute Neutrophil Ct (ANC) 5.88 (1.4-6.9); BASOPHIL % 0.5 % (0.0-0.4); Basophil (Absolute #) 0.04 (0-0.4); Eosinophil % 0.2 % (0.00-5.0); Eosinophil (Absolute #) 0.02 (0-0.5); Hematocrit 40.5 % (42-50); Hemoglobin 13.5 gm/dl (12.5-18.0); Lymphocyte (Absolute #) 2.11 (1.0-4.6); Lymphocytes % 24.5 % (24.0-44.0); Mean Cell Volume 87.9 fl (78-100); Mean Corpuscular Hemoglobin 29.3 pg (26-32); Mean Corpuscular Hgb Concent. 33.3 g/dl (32-36); Mean Platelet Volume 8.9 fl (7.5-11.0); Monocyte (Absolute #) 0.55 (0.0-1.3); Monocytes % 6.4 % (0.0-12.0); Neutrophil % 68.4 % (36.0-66.0); Platelet Count 391 K/mm3 (150-450); Red Blood Count 4.61 M/mm3 (4.1-5.6); Red Cell Distribution Width 15.4 % (11.5-14.0); White Blood Count 8.6 K/mm3 (4.0-10.5)
[2020-01-23 03:47] LABS: ALBUMIN 4.2 g/dL (3.5-5.0); ALKALINE PHOSPHATASE 147 U/L (38-126); ANION GAP 14.8 MEQ/L (5-15); BLOOD UREA NITROGEN 14 mg/dL (9-20); CHLORIDE 104 mmol/L (98-107); Calcium 9.6 mg/dL (8.4-10.2); Carbon Dioxide 24 mmol/L (22-30); Creatinine 1 0.64 mg/dL (0.66-1.25); Glucose 86 mg/dL (74-106); Potassium 3.5 mmol/L (3.5-5.1); SGOT/AST 36 U/L (17-59); SGPT/ALT 33 U/L (0-50); SODIUM 139 mmol/L (137-145); Total Protein 7.2 g/dL (6.3-8.2)
--- NOTE | 2020-01-23 04:01 | ERPHSYRPT ---
- History of Present Illness Time Seen by Provider: 01/23/20 03:20 Historian: patient Exam Limitations: no limitations Patient Subjective Stated Complaint: pt states he woke up with lt sides chest pain and has had some shortness of breath with it. states it has gotten a little worse since 0200 when he woke up Triage Nursing Assessment: pt alert and oriented, answers questions approp. pt ambulatory with steady gait noted. skin warm and moist. pt tachypneic. lung sounds clear throughout. heart rate 102, sinus tach on monitor. mult scabs on bilat arms and legs. Physician History: Patient is a 24-year-old male with a history of type 1 diabetes presents to our ED with complaints of left-sided chest pain that started approximately 2 hours prior to arrival. Symptoms started approximately 2 AM. Chest pain described as an ache that is well localized. No radiation. No specific worsening or improving factors. No associated trauma. No fever. Chest pain associated with mild shortness of breath. Patient states that he is otherwise generally healthy. He voices no other complaints at this time. Timing/Duration: today Activities at Onset: none (Right distal pulses GI may be of benefit. 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 escitalopram oxalate [From Lexapro] Allergy (Verified 01/23/20 03:45) sertraline HCl [From Zoloft] Allergy (Verified 01/23/20 03:45) Home Medications: Insulin Aspart [NovoLOG Insulin] 1 units SQ UD 03/19/18 [History] Hx Tetanus, Diphtheria Vaccination/Date Given: Yes (unknown) Hx Influenza Vaccination/Date Given: Yes Hx Pneumococcal Vaccination/Date Given: Yes Immunizations Up to Date: Yes Travel Risk - International Travel Have you traveled outside of the country in past 3 weeks: No - Coronavirus Screening Are you exhibiting any of the following symptoms?: No Close contact with a COVID-19 positive Pt in past 14-21 Days: No - Review of Systems Constitutional: No Symptoms, No Fever, No Chills Eyes: No Symptoms Ears, Nose, & Throat: No Symptoms Respiratory: No Symptoms, No Cough, No Dyspnea Cardiac: No Symptoms, No Chest Pain, No Edema, No Syncope Abdominal/Gastrointestinal: No Symptoms, No Abdominal Pain, No Nausea, No Vomiting, No Diarrhea Genitourinary Symptoms: No Symptoms, No Dysuria Musculoskeletal: No Symptoms, No Back Pain, No Neck Pain Skin: No Symptoms, No Rash Neurological: No Symptoms, No Dizziness, No Focal Weakness, No Sensory Changes Psychological: No Symptoms Endocrine: No Symptoms Hematologic/Lymphatic: No Symptoms Immunological/Allergic: No Symptoms All Other Systems: Reviewed and Negative - Past Medical History Pertinent Past Medical History: Yes Neurological History: No Pertinent History ENT History: No Pertinent History Cardiac History: Hypertension Respiratory History: No Pertinent History Endocrine Medical History: Diabetes Type I Musculoskeletal History: Fractures, Other GI Medical History: No Pertinent History History: No Pertinent History Psycho-Social History: Anxiety, Attention Deficit Disorder, Depression, Other Male Reproductive Disorders: No Pertinent History Other Medical History: self harming behavior- cutting left arm 2013, ADHD, Borderline Personality Disorder. pt states he has a cardiac problem but is unsure what it is. was scheduled for outpt echo but missed appt - Past Surgical History Past Surgical History: Yes Neuro Surgical History: No Pertinent History Cardiac: No Pertinent History Respiratory: No Pertinent History Gastrointestinal: No Pertinent History Genitourinary: No Pertinent History Musculoskeletal: Amputation Male Surgical History: No Pertinent History Other Surgical History: Partial amputation of left foot 2014 - Social History Smoking Status: Current every day smoker How long have you smoked: 5 Exposure to second hand smoke: No Drug Use: none Patient Lives Alone: No - Nursing Vital Signs Nursing Vital Signs: Initial Vital Signs Pulse Rate 102 H 01/23/20 03:19 Respiratory Rate 28 H 01/23/20 03:19 Blood Pressure 142/90 01/23/20 03:19 O2 Sat by Pulse Oximetry 99 01/23/20 03:19 Pain Scale Pain Intensity 5 - Physical Exam General Appearance: alert, other (Patient sitting up in bed. He appears to be very anxious. Patient is mildly tachycardic on school lunch monitor. Mildly tachypneic. Lungs are clear.) Eye Exam: PERRL/EOMI, eyes nml inspection Ears, Nose, Throat Exam: normal ENT inspection, moist mucous membranes Neck Exam: normal inspection, non-tender, supple, full range of motion Respiratory Exam: normal breath sounds, lungs clear, No chest tenderness, No respiratory distress Cardiovascular Exam: regular rate/rhythm, normal heart sounds Gastrointestinal/Abdomen Exam: soft, No tenderness, No mass Rectal Exam: deferred Back Exam: normal inspection, No CVA tenderness, No vertebral tenderness Extremity Exam: normal inspection, normal range of motion Neurologic Exam: alert, oriented x 3, cooperative, normal mood/affect, sensation nml, No motor deficits Skin Exam: normal color, warm, dry SpO2 Interpretation: normal SpO2: 99 O2 Delivery: Room Air - Course Nursing assessment & vital signs reviewed: Yes EKG Interpreted by Me: RATE (10 to2), Sinus Tach, NORMAL AXIS, NORMAL INTERVALS - Radiology Exams Chest X-ray Interpretation: Interpreted by me (No consolidation no infiltrates no pneumothorax no pleural effusion normal bony thorax cardiac silhouette within normal limits.) Ordered Tests: Active Orders 24 hr Category Date Time Status Set Up Inspector STAT Care 01/23/20 03:18 Active EKG-ER Only STAT Care 01/23/20 03:18 Active IV Insertion STAT Care 01/23/20 03:18 Active Pulse Oximetry (ED) STAT Care 01/23/20 03:18 Active CHEST 1 VIEW (PORTABLE) Stat Exams 01/23/20 03:18 Taken CBC W DIFF Stat Lab 01/23/20 03:29 Completed CMP Stat Lab 01/23/20 03:29 Completed D-DIMER QUANTITATIVE Stat Lab 01/23/20 03:29 Completed TROPONIN Q3H Lab 01/23/20 03:30 Completed TROPONIN Q3H Lab 01/23/20 05:18 Completed TROPONIN Q3H Lab 01/23/20 09:30 Ordered TROPONIN Q3H Lab 01/23/20 12:30 Ordered TROPONIN Q3H Lab 01/23/20 15:30 Ordered Medication Summary Discontinued Medications Generic Name Dose Route Start Last Admin Trade Name Freq PRN Reason Stop Dose Admin Aspirin 324 mg 01/23/20 03:18 01/23/20 03:43 Baby Aspirin 81 Mg Chew PO 01/23/20 03:19 324 mg STAT ONE Administration Lab/Rad Data: Laboratory Result Diagrams 01/23/20 03:29 01/23/20 03:29 Laboratory Results 01/23/20 01/23/20 01/23/20 Range/Units 05:18 03:30 03:29 WBC (4.0-10.5) K/mm3 RBC (4.1-5.6) M/mm3 Hgb (12.5-18.0) gm/dl Hct (42-50) % MCV (78-100) fl MCH (26-32) pg MCHC (32-36) g/dl RDW (11.5-14.0) % Plt Count (150-450) K/mm3 MPV (7.5-11.0) fl Gran % (36.0-66.0) % Eos # (Auto) (0-0.5) Absolute Lymphs (auto) (1.0-4.6) Absolute Monos (auto) (0.0-1.3) Lymphocytes % (24.0-44.0) % Monocytes % (0.0-12.0) % Eosinophils % (0.00-5.0) % Basophils % (0.0-0.4) % Absolute Granulocytes (1.4-6.9) Basophils # (0-0.4) D-Dimer < 215 L (215-500) ng/mL Sodium (137-145) mmol/L Potassium (3.5-5.1) mmol/L Chloride (98-107) mmol/L Carbon Dioxide (22-30) mmol/L Anion Gap (5-15) MEQ/L BUN (9-20) mg/dL Creatinine (0.66-1.25) mg/dL Estimated GFR ML/MIN Glucose (74-106) mg/dL Calcium (8.4-10.2) mg/dL Total Bilirubin (0.2-1.3) mg/dL AST (17-59) U/L ALT (0-50) U/L Alkaline Phosphatase (38-126) U/L Troponin I < 0.012 < 0.012 (0.000-0.034) ng/mL Serum Total Protein (6.3-8.2) g/dL Albumin (3.5-5.0) g/dL 01/23/20 01/23/20 Range/Units 03:29 03:29 WBC 8.6 (4.0-10.5) K/mm3 RBC 4.61 (4.1-5.6) M/mm3 Hgb 13.5 (12.5-18.0) gm/dl Hct 40.5 L (42-50) % MCV 87.9 (78-100) fl MCH 29.3 (26-32) pg MCHC 33.3 (32-36) g/dl RDW 15.4 H (11.5-14.0) % Plt Count 391 (150-450) K/mm3 MPV 8.9 (7.5-11.0) fl Gran % 68.4 H (36.0-66.0) % Eos # (Auto) 0.02 (0-0.5) Absolute Lymphs (auto) 2.11 (1.0-4.6) Absolute Monos (auto) 0.55 (0.0-1.3) Lymphocytes % 24.5 (24.0-44.0) % Monocytes % 6.4 (0.0-12.0) % Eosinophils % 0.2 (0.00-5.0) % Basophils % 0.5 (0.0-0.4) % Absolute Granulocytes 5.88 (1.4-6.9) Basophils # 0.04 (0-0.4) D-Dimer (215-500) ng/mL Sodium 139 (137-145) mmol/L Potassium 3.5 (3.5-5.1) mmol/L Chloride 104 (98-107) mmol/L Carbon Dioxide 24 (22-30) mmol/L Anion Gap 14.8 (5-15) MEQ/L BUN 14 (9-20) mg/dL Creatinine 0.64 L (0.66-1.25) mg/dL Estimated GFR > 60.0 ML/MIN Glucose 86 (74-106) mg/dL Calcium 9.6 (8.4-10.2) mg/dL Total Bilirubin 0.40 (0.2-1.3) mg/dL AST 36 (17-59) U/L ALT 33 (0-50) U/L Alkaline Phosphatase 147 H (38-126) U/L Troponin I (0.000-0.034) ng/mL Serum Total Protein 7.2 (6.3-8.2) g/dL Albumin 4.2 (3.5-5.0) g/dL - Progress Progress: improved Air Movement: good Progress Note: 01/23/20 05:55 Patient reassessed. He feels well. Patient has no chest pain. Work-up essentially negative. D-dimer negative. Troponin x2-. X-ray chest appears negative as well. Patient states is ready for discharge. Will discharge home. Patient agrees to follow-up with his primary care doctor within 48 hours for reevaluation. Blood Culture(s) Obtained: No Antibiotics given: No Counseled pt/family regarding: lab results, diagnosis, need for follow-up, rad results - Departure Departure Disposition: Home, Extended Care Facility Clinical Impression: Chest pain Condition: Stable Critical Care Time: No Referrals: CHRISTY BROWNE [ACTIVE STAFF] - Additional Instructions: Discharge/Care Plan ABRAHAN GEORGE was seen on 01/23/20 in the Emergency Room. The patient was counseled regarding Diagnosis,Lab results, Imaging studies, need for follow up and when to return to the Emergency Room. Prescriptions given: Discharge Note I have spoken with the patient and/or caregivers. I have explained the patient's condition, diagnosis and treatment plan based on the information available to me at this time. I have answered the patient's and/or caregiver's questions and addressed any concerns. The patient and/or caregivers have as good understanding of the patient's diagnosis, condition and treatment plan as can be expected at this point. The vital signs have been stable. The patient's condition is stable and appropriate for discharge from the emergency department. The patient will pursue further outpatient evaluation with the primary care physician or other designated or consulting physician as outlined in the discharge instructions. The patient and/or caregivers are agreeable to this plan of care and follow-up instructions have been explained in detail. The patient and/or caregivers have received these instruction. The patient/and or caregivers are aware that any significant change in condition or worsening of symptoms should prompt an immediate return to this or the closest emergency department or call 911.
[2020-01-23 05:57] VITALS: BP 115/74; PULSE 91
[2020-01-23 05:58] VITALS: O2SAT 99
--- NOTE | 2020-01-23 08:58 | XRAY ---
Indication: Chest pain. Comparison: March 19, 2018. Portable chest again demonstrates normal heart, lungs, and bony thorax.
== END 2020-01-23 06:04 | disposition home or self-care (01) ==
LOC: ED 03:17
DX: R07.9 Chest pain, unspecified (principal); E10.9 Type 1 diabetes mellitus without complications
CPT/HCPCS: 36000; 36415; 71045; 80053; 82962; 84484; 85025; 85379; 93005; 93041; 94760; 99284; A9270-GY

== ENCOUNTER 2020-01-30 21:41 | Observation (INO) | payer BC ==
[2020-01-30 22:26] LABS: Absolute Neutrophil Ct (ANC) 4.34 (1.4-6.9); BASOPHIL % 0.3 % (0.0-0.4); Basophil (Absolute #) 0.02 (0-0.4); Eosinophil % 0.5 % (0.00-5.0); Eosinophil (Absolute #) 0.03 (0-0.5); Hemoglobin 12.6 gm/dl (12.5-18.0); Lymphocytes % 29.1 % (24.0-44.0); Mean Cell Volume 91.1 fl (78-100); Mean Corpuscular Hemoglobin 29.4 pg (26-32); Mean Corpuscular Hgb Concent. 32.3 g/dl (32-36); Mean Platelet Volume 9.6 fl (7.5-11.0); Monocyte (Absolute #) 0.23 (0.0-1.3); Monocytes % 3.5 % (0.0-12.0); Neutrophil % 66.6 % (36.0-66.0); Platelet Count 327 K/mm3 (150-450); Red Blood Count 4.28 M/mm3 (4.1-5.6); Red Cell Distribution Width 15.5 % (11.5-14.0); White Blood Count 6.5 K/mm3 (4.0-10.5)
[2020-01-30 22:30] LABS: INR 0.98 (0.8-3.0); PROTIME 11.1 SECONDS (8.83-12.87)
[2020-01-30 22:33] LABS: PTT 24.9 SECONDS (24.1-36.1)
[2020-01-30 22:35] LABS: ALBUMIN 3.5 g/dL (3.5-5.0); ALKALINE PHOSPHATASE 138 U/L (38-126); ANION GAP 15.7 MEQ/L (5-15); BLOOD UREA NITROGEN 20 mg/dL (9-20); CHLORIDE 106 mmol/L (98-107); CK-Creatinine Phosphokinase 52 U/L (55-170); Calcium 8.6 mg/dL (8.4-10.2); Carbon Dioxide 18 mmol/L (22-30); Creatinine 1 0.82 mg/dL (0.66-1.25); Potassium 4.6 mmol/L (3.5-5.1); SGOT/AST 33 U/L (17-59); SGPT/ALT 28 U/L (0-50); SODIUM 135 mmol/L (137-145); Total Protein 6.4 g/dL (6.3-8.2)
--- NOTE | 2020-01-30 22:35 | ERPHSYRPT ---
- History of Present Illness Time Seen by Provider: 01/30/20 21:50 Source: patient Exam Limitations: no limitations Patient Subjective Stated Complaint: " I was trying to walk from [place] to [place] and I made it about 11 hours then I passed out. I was listening to [employer] and when I woke up the same song was playing so I don't think I was passed out very long. " Triage Nursing Assessment: Pt presents to ER by ambulance for syncopal episode w hich occured just [employer]. Pt was walking a very long distance from [place] to [place] on a very hot humid summer day. He walked approx 11 hours before passing out. He stated he did stop along the way and drink 3 bottles of water. Pt is known diabetic, FSBS en route was in the 400s. EMS started bilateral IVs and gave 2000cc fluid bolus. Pt complains of mild shortness of breath and chest tightness along with tingling in fingers. Pt is alert and oriented at this time. Skin pale and diaphoretic. Lung sounds clear and equal throughout. Denies nausea or vomiting. Denies headache but does state he is a little dizzy. Physician History: Patient is a 24-year-old male who presents to our ED via EMS for evaluation of syncope. Patient arrived non-boarded non-collared. Patient reports that he was walking from [place] to [place]. Patient walked for approximately 11 hours. However patient states that he was feeling overheated during his walk. Patient drank 3 bottles of water. Upon arrival to his destination patient reportedly fainted. Patient states he fainted for less than 1 minute. Patient has a history of diabetes. Patient's blood sugar in route was 400 per EMS. He received 2 L of normal saline. Patient complains of mild shortness of breath and chest tightness. Patient states his fingers are tingling. He is mildly dizzy. 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 escitalopram oxalate [From Lexapro] Allergy (Verified 01/30/20 21:57) sertraline HCl [From Zoloft] Allergy (Verified 01/30/20 21:57) Home Medications: Insulin Lispro [Humalog] 1 unit SQ DAILY 01/30/20 [History] Hx Tetanus, Diphtheria Vaccination/Date Given: Yes Hx Influenza Vaccination/Date Given: Yes Hx Pneumococcal Vaccination/Date Given: No Immunizations Up to Date: Yes Travel Risk - International Travel Have you traveled outside of the country in past 3 weeks: No - Coronavirus Screening Are you exhibiting any of the following symptoms?: No Close contact with a COVID-19 positive Pt in past 14-21 Days: No - Past Medical History Pertinent Past Medical History: Yes Neurological History: No Pertinent History ENT History: No Pertinent History Cardiac History: Hypertension Respiratory History: No Pertinent History Endocrine Medical History: Diabetes Type I Musculoskeletal History: Fractures, Other GI Medical History: No Pertinent History History: No Pertinent History Psycho-Social History: Other Male Reproductive Disorders: No Pertinent History Other Medical History: self harming behavior- cutting left arm 2013, ADHD, Borderline Personality Disorder. pt states he has a cardiac problem but is unsure what it is. was scheduled for outpt echo but missed appt - Past Surgical History Past Surgical History: Yes Neuro Surgical History: No Pertinent History Cardiac: No Pertinent History Respiratory: No Pertinent History Gastrointestinal: No Pertinent History Genitourinary: No Pertinent History Musculoskeletal: Orthopedic Surgery Male Surgical History: No Pertinent History Other Surgical History: Partial amputation of left foot 2014 - Social History Smoking Status: Current every day smoker How long have you smoked: 5 Exposure to second hand smoke: No Drug Use: none Patient Lives Alone: No - Review of Systems Constitutional: No Symptoms, No Fever, No Chills Eyes: No Symptoms Ears, Nose, & Throat: No Symptoms Respiratory: No Symptoms, No Cough, No Dyspnea Cardiac: No Symptoms, No Chest Pain, No Edema, No Syncope Abdominal/Gastrointestinal: No Symptoms, No Abdominal Pain, No Nausea, No Vomiting, No Diarrhea Genitourinary Symptoms: No Symptoms, No Dysuria Musculoskeletal: No Symptoms, No Back Pain, No Neck Pain Skin: No Symptoms, No Rash Neurological: No Symptoms, No Dizziness, No Focal Weakness, No Sensory Changes Psychological: No Symptoms Endocrine: No Symptoms Hematologic/Lymphatic: No Symptoms Immunological/Allergic: No Symptoms All Other Systems: Reviewed and Negative Physical Exam - Nursing Vital Signs Nursing Vital Signs: Initial Vital Signs Temperature 98.2 F 01/30/20 21:44 Pulse Rate 100 H 01/30/20 21:44 Respiratory Rate 16 01/30/20 21:44 Blood Pressure 132/67 01/30/20 21:44 O2 Sat by Pulse Oximetry 95 01/30/20 21:44 Pain Scale Pain Intensity 0 - Bosque Coma Scale Best Eye Response (Bosque): (4) open spontaneously Best Verbal Response (Bosque): (5) oriented Best Motor Response (Bosque): (6) obeys commands [place] Total: 15 - Physical Exam General Appearance: no apparent distress, alert Eye Exam: bilateral eye: normal inspection, PERRL, EOMI Ears, Nose, Throat Exam: normal ENT inspection, pharynx normal, moist mucous membranes Neck Exam: normal inspection, non-tender, supple, full range of motion Respiratory: normal breath sounds, lungs clear, No chest tenderness, No respiratory distress Cardiovascular: regular rate/rhythm, capillary refill <2 sec, No murmur, No pulse deficit Gastrointestinal: soft, No tenderness, No distention, No mass Back Exam: normal inspection, normal range of motion, No CVA tenderness, No vertebral tenderness Extremity Exam: normal inspection, normal range of motion, pelvis stable, No tenderness Peripheral Pulses: dorsalis-pedis (R): 2+, dorsalis-pedis (L): 2+ Mental Status: alert, oriented x 3, 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 Exam: normal speech, PERRL, No facial droop Coordination/Gait: normal finger to nose Motor/Sensory: no motor deficit, no sensory deficit, no pronator drift Skin Exam: normal color, warm, dry, No rash SpO2 Interpretation: normal SpO2: 95 O2 Delivery: Room Air - Course Nursing assessment & vital signs reviewed: Yes EKG Interpreted by Me: RATE (82), Sinus Rhythm, NORMAL AXIS, NORMAL INTERVALS - Radiology Exams Chest X-ray Interpretation: Interpreted by me (No effusions, no consolidations, no infiltrates, normal cardiac silhouette normal bony thorax.) - CT Exams Head CT Interpretation: Tele-radiologist Report (No evidence of an acute intracranial abnormality. No evidence of acute territorial major vessel infarct, mass affe ct, or hemorrhage.) Ordered Tests: Active Orders 24 hr Category Date Time Status ACCUCHECK [Accucheck] STAT Care 01/30/20 23:34 Active Pararescue Manager STAT Care 01/30/20 21:51 Active EKG-ER Only STAT Care 01/30/20 21:50 Active IV Insertion STAT Care 01/30/20 21:50 Active Pulse Oximetry (ED) STAT Care 01/30/20 21:50 Active CHEST 1 VIEW (PORTABLE) Stat Exams 01/30/20 21:50 Taken HEAD WITHOUT CONTRAST [CT] Stat Exams 01/30/20 21:52 Taken CBC W DIFF Stat Lab 01/30/20 22:10 Completed CK-Creatinine Phosphokinase Stat Lab 01/30/20 22:10 Completed CMP Stat Lab 01/30/20 22:10 Completed PROTIME WITH INR Stat Lab 01/30/20 22:10 Completed PTT Stat Lab 01/30/20 22:10 Completed TROPONIN Q3H Lab 01/30/20 22:10 Completed TROPONIN Q3H Lab 01/31/20 00:05 Completed TROPONIN Q3H Lab 01/31/20 04:00 Ordered TROPONIN Q3H Lab 01/31/20 07:00 Ordered TROPONIN Q3H Lab 01/31/20 10:00 Ordered Urine Triage Profile Stat Lab 01/30/20 23:00 Completed Medication Summary Discontinued Medications Generic Name Dose Route Start Last Admin Trade Name Freq PRN Reason Stop Dose Admin Insulin Human Lispro 8 unit 01/30/20 23:36 01/30/20 23:40 Humalog SQ 01/30/20 23:37 8 unit STAT ONE Administration Insulin Human Lispro Confirm 01/30/20 23:40 Humalog Administered 01/30/20 23:41 Dose 8 unit .ROUTE .K-MED ONE Lab/Rad Data: Laboratory Result Diagrams 01/30/20 22:10 01/30/20 22:10 Laboratory Results 01/31/20 01/30/20 01/30/20 Range/Units 00:05 23:00 22:10 WBC (4.0-10.5) K/mm3 RBC (4.1-5.6) M/mm3 Hgb (12.5-18.0) gm/dl Hct (42-50) % MCV (78-100) fl MCH (26-32) pg MCHC (32-36) g/dl RDW (11.5-14.0) % Plt Count (150-450) K/mm3 MPV (7.5-11.0) fl Gran % (36.0-66.0) % Eos # (Auto) (0-0.5) Absolute Lymphs (auto) (1.0-4.6) Absolute Monos (auto) (0.0-1.3) Lymphocytes % (24.0-44.0) % Monocytes % (0.0-12.0) % Eosinophils % (0.00-5.0) % Basophils % (0.0-0.4) % Absolute Granulocytes (1.4-6.9) Basophils # (0-0.4) PT (8.83-12.87) SECONDS INR (0.8-3.0) APTT (24.1-36.1) SECONDS Sodium (137-145) mmol/L Potassium (3.5-5.1) mmol/L Chloride (98-107) mmol/L Carbon Dioxide (22-30) mmol/L Anion Gap (5-15) MEQ/L BUN (9-20) mg/dL Creatinine (0.66-1.25) mg/dL Estimated GFR ML/MIN Glucose (74-106) mg/dL Calcium (8.4-10.2) mg/dL Total Bilirubin (0.2-1.3) mg/dL AST (17-59) U/L ALT (0-50) U/L Alkaline Phosphatase (38-126) U/L Creatine Kinase (55-170) U/L Troponin I < 0.012 < 0.012 (0.000-0.034) ng/mL Serum Total Protein (6.3-8.2) g/dL Albumin (3.5-5.0) g/dL Urine Opiates Level NEGATIVE (NEGATIVE) Ur Methadone NEGATIVE (NEGATIVE) Urine Barbiturates NEGATIVE (NEGATIVE) Ur Phencyclidine (PCP) NEGATIVE (NEGATIVE) Urine Amphetamine NEGATIVE (NEGATIVE) U Benzodiazepine Level NEGATIVE (NEGATIVE) Urine Cocaine NEGATIVE (NEGATIVE) Urine Marijuana (THC) NEGATIVE (NEGATIVE) 01/30/20 01/30/20 01/30/20 Range/Units 22:10 22:10 22:10 WBC 6.5 (4.0-10.5) K/mm3 RBC 4.28 (4.1-5.6) M/mm3 Hgb 12.6 (12.5-18.0) gm/dl Hct 39.0 L (42-50) % MCV 91.1 (78-100) fl MCH 29.4 (26-32) pg MCHC 32.3 (32-36) g/dl RDW 15.5 H (11.5-14.0) % Plt Count 327 (150-450) K/mm3 MPV 9.6 (7.5-11.0) fl Gran % 66.6 H (36.0-66.0) % Eos # (Auto) 0.03 (0-0.5) Absolute Lymphs (auto) 1.90 (1.0-4.6) Absolute Monos (auto) 0.23 (0.0-1.3) Lymphocytes % 29.1 (24.0-44.0) % Monocytes % 3.5 (0.0-12.0) % Eosinophils % 0.5 (0.00-5.0) % Basophils % 0.3 (0.0-0.4) % Absolute Granulocytes 4.34 (1.4-6.9) Basophils # 0.02 (0-0.4) PT 11.1 (8.83-12.87) SECONDS INR 0.98 (0.8-3.0) APTT 24.9 (24.1-36.1) SECONDS Sodium 135 L (137-145) mmol/L Potassium 4.6 (3.5-5.1) mmol/L Chloride 106 (98-107) mmol/L Carbon Dioxide 18 L (22-30) mmol/L Anion Gap 15.7 H (5-15) MEQ/L BUN 20 (9-20) mg/dL Creatinine 0.82 (0.66-1.25) mg/dL Estimated GFR > 60.0 ML/MIN Glucose 512 H* (74-106) mg/dL Calcium 8.6 (8.4-10.2) mg/dL Total Bilirubin 0.50 (0.2-1.3) mg/dL AST 33 (17-59) U/L ALT 28 (0-50) U/L Alkaline Phosphatase 138 H (38-126) U/L Creatine Kinase 52 L (55-170) U/L Troponin I (0.000-0.034) ng/mL Serum Total Protein 6.4 (6.3-8.2) g/dL Albumin 3.5 (3.5-5.0) g/dL Urine Opiates Level (NEGATIVE) Ur Methadone (NEGATIVE) Urine Barbiturates (NEGATIVE) Ur Phencyclidine (PCP) (NEGATIVE) Urine Amphetamine (NEGATIVE) U Benzodiazepine Level (NEGATIVE) Urine Cocaine (NEGATIVE) Urine Marijuana (THC) (NEGATIVE) - Progress Progress: improved Progress Note: 01/31/20 01:16 Patient is a 24-year-old male with history of type 1 diabetes. Patient presented to our ED status post syncope. Work-up revealed hyperglycemia. Cardiac troponin negative x2. Patient dehydrated as he was spent 11 hours out in the hot humid weather. Patient received IV fluids. We are planning on discharging patient home however patient states that he began to feel dizzy during ambulation and transitioning from sit to stand. Patient felt somewhat short of breath and stated his chest was tight. Patient requested admission as he was not feeling well. Case discussed Dr. Oneill. We decided to admit patient for hydration and monitoring. Plan of care discussed with patient. He agrees to admission to [facility] for further evaluation and treatment. Discussed with .: Iman Will see patient in: hospital (observation) Counseled pt/family regarding: lab results, diagnosis, need for follow-up, rad results - Departure Departure Disposition: Observation Clinical Impression: Heat exhaustion, Syncope and collapse, Hyperglycemia, Dehydration, Chest pain Condition: Stable Critical Care Time: No Referrals: DOCTOR,NO FAMILY [Primary Care Provider] - Instructions: Syncope (Fainting), Heat Exhaustion and Heat Stroke (DC)
[2020-01-30 22:47] LABS: Glucose 512 mg/dL (74-106)
[2020-01-30] MEDS ORDERED: HUMALOG SQ ONE (23:36)
[2020-01-30 23:38] LABS: Amphetamine,Urine NEGATIVE (NEGATIVE); Barbiturate,Urine NEGATIVE (NEGATIVE); Benzodiazepine,Urine NEGATIVE (NEGATIVE); Cocaine,Urine NEGATIVE (NEGATIVE); Methadone,Urine NEGATIVE (NEGATIVE); Opiate,Urine NEGATIVE (NEGATIVE); PCP,Urine NEGATIVE (NEGATIVE); THC,Urine NEGATIVE (NEGATIVE)
[2020-01-30] MEDS ORDERED: HUMALOG ONE (23:40)
[2020-01-31] MEDS ORDERED: MILK OF MAGNESIA 30 ML PO PRN (01:30)
[2020-01-31] MEDS ORDERED: TYLENOL 325 MG PO PRN (01:30)
[2020-01-31] MEDS ORDERED: MAALOX ES 30 ML UNIT DOSE PO PRN (01:30)
[2020-01-31] MEDS ORDERED: Senokot-S Tablet PO PRN (01:30)
[2020-01-31] MEDS ORDERED: Zofran 4 MG/2 ML VIAL IV PRN (01:30)
[2020-01-31] MEDS ORDERED: Sodium Chloride 0.9% 500 ML 500 ML IV SCH (01:30)
[2020-01-31] MEDS ORDERED: Sodium Chloride 0.9% 1000 ML 1,000 ML ONE (01:36)
[2020-01-31 02:17] LABS: Risk Ratio 6.6
[2020-01-31] MEDS ORDERED: Sodium Chloride 0.9% 1000 ML 1,000 ML IV SCH (07:15)
[2020-01-31 08:16] VITALS: BP 109/56; PULSE 85; O2SAT 96
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
[2020-01-31] MEDS ORDERED: HUMALOG SQ PRN (08:52)
--- NOTE | 2020-01-31 08:59 | XRAY ---
Indication: Pneumonia. Comparison: January 23, 2020. Portable chest continues to demonstrate normal heart, lungs, and bony thorax with a few incidental tiny calcified granulomas.
--- NOTE | 2020-01-31 08:59 | XRAY ---
Indication: Syncope. No known injury. Multiple contiguous axial images obtained through the head without contrast. Comparison: October 17, 2016. Again normal appearing brain parenchyma, ventricles, and bony calvarium. Visualized paranasal sinuses and mastoid air cells are clear. Impression: Continued normal CT head without contrast exam. Comment: Preliminary interpretation was made by [facility]. No critical discrepancy.
[2020-01-31] MEDS ORDERED: MOTRIN 400 MG PO PRN (09:28)
== END 2020-01-31 10:39 | disposition home or self-care (01) ==
LOC: ED 21:41 → MED SURG 01-31 01:30
PROVIDERS: ADMIT Family Medicine; ATTEND Family Medicine
DX: E86.0 Dehydration (principal); T67.5XXA Heat exhaustion, unspecified, initial encounter; R55 Syncope and collapse; E10.65 Type 1 diabetes mellitus with hyperglycemia; Z79.4 Long term (current) use of insulin
CPT/HCPCS: 36000; 36415; 70450; 71045; 80053; 80061; 80307; 82550; 82962; 83036; 83721; 84484; 85025; 85610; 85730; 93005; 93041; 93268; 94760; 96372; 99285; G0378; J1817

== ENCOUNTER 2020-03-12 05:04 | Emergency (ER) | payer BC ==
[2020-03-12] MEDS ORDERED: Zofran 4 MG/2 ML VIAL IV ONE (05:34)
[2020-03-12] MEDS ORDERED: Sodium Chloride 0.9% 1000 ML 1,000 ML IV STA ×2 (05:34→06:49)
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
[2020-03-12] MEDS ORDERED: HUMULIN R IV ONE ×2 (05:35→06:49)
[2020-03-12] MEDS ORDERED: Zofran 4 MG/2 ML VIAL ONE (05:43)
[2020-03-12] MEDS ORDERED: HUMULIN R ONE ×2 (05:46→06:53)
[2020-03-12] MEDS ORDERED: Sodium Chloride 0.9% 1000 ML 1,000 ML ONE ×3 (05:46→07:20)
[2020-03-12 06:07] LABS: Absolute Neutrophil Ct (ANC) 7.26 (1.4-6.9); BASOPHIL % 0.2 % (0.0-0.4); Basophil (Absolute #) 0.02 (0-0.4); Eosinophil % 0.1 % (0.00-5.0); Eosinophil (Absolute #) 0.01 (0-0.5); Hematocrit 44.6 % (42-50); Hemoglobin 14.2 gm/dl (12.5-18.0); Lymphocyte (Absolute #) 1.86 (1.0-4.6); Lymphocytes % 19.3 % (24.0-44.0); Mean Cell Volume 94.3 fl (78-100); Mean Corpuscular Hgb Concent. 31.8 g/dl (32-36); Mean Platelet Volume 10.3 fl (7.5-11.0); Monocyte (Absolute #) 0.47 (0.0-1.3); Monocytes % 4.9 % (0.0-12.0); Neutrophil % 75.5 % (36.0-66.0); Platelet Count 364 K/mm3 (150-450); Red Blood Count 4.73 M/mm3 (4.1-5.6); Red Cell Distribution Width 14.8 % (11.5-14.0); White Blood Count 9.6 K/mm3 (4.0-10.5)
[2020-03-12 06:23] LABS: Appearance CLEAR (CLEAR); Bilirubin NEGATIVE (NEGATIVE); Blood NEGATIVE Ery/ul (0-5); Glucose >=500 mg/dL (NEGATIVE); Ketones SMALL (NEGATIVE); Leukocyte Esterase NEGATIVE (NEGATIVE); Nitrite NEGATIVE (NEGATIVE); Protein,Urine Dip NEGATIVE (Negative); Specific Gravity 1.022 (1.005-1.025); Urobilinogen NEGATIVE mg/dL (0-1)
[2020-03-12 06:35] LABS: ISTAT CREA 0.9 mg/dL (0.6-1.3)
[2020-03-12] MEDS: Sodium Chloride 0.9% 1000 ML 1,000 ML IV STA ×2 (06:44→07:26)
[2020-03-12 07:42] LABS: ALBUMIN 4.6 g/dL (3.5-5.0); ALKALINE PHOSPHATASE 123 U/L (38-126); ANION GAP 21.9 MEQ/L (5-15); SGOT/AST 39 U/L (17-59); SGPT/ALT 55 U/L (0-50); Total Protein 7.2 g/dL (6.3-8.2)
[2020-03-12 08:21] VITALS: PULSE 97
[2020-03-12 08:31] LABS: ETHYL ALCOHOL < 10 mg/dL (0-10)
[2020-03-12 08:32] LABS: Calcium 10.2 mg/dL (8.4-10.2)
[2020-03-12 08:43] VITALS: BP 102/46; O2SAT 98
== END 2020-03-12 08:41 | disposition home or self-care (01) ==
LOC: ED 05:04
DX: E10.10 Type 1 diabetes mellitus with ketoacidosis without coma (principal)
CPT/HCPCS: 36000; 36415; 80047; 80053; 80307; 81001; 82947; 82962; 83605; 85025; 94760; 96360; 96361; 96374; 96375; 96376; 99284; 99291; J1815; J2405; G0480

== ENCOUNTER 2020-04-01 17:59 | Emergency (ER) | payer BC ==
[2020-04-01] MEDS ORDERED: Zofran 4 MG/2 ML VIAL IV ONE (18:22)
[2020-04-01] MEDS ORDERED: Sodium Chloride 0.9% 1000 ML 1,000 ML IV STA ×3 (18:22→20:42)
[2020-04-01] MEDS ORDERED: SUBLIMAZE 100 MCG/2 ML IV ONE (18:22)
[2020-04-01] MEDS ORDERED: Zofran 4 MG/2 ML VIAL ONE (18:26)
[2020-04-01] MEDS ORDERED: SUBLIMAZE 100 MCG/2 ML ONE (18:29)
[2020-04-01] MEDS ORDERED: Sodium Chloride 0.9% 1000 ML 1,000 ML ONE ×3 (18:29→20:43)
[2020-04-01 18:45] LABS: BASOPHIL % 0.1 % (0.0-0.4); Basophil (Absolute #) 0.01 (0-0.4); Eosinophil % 0.1 % (0.00-5.0); Eosinophil (Absolute #) 0.01 (0-0.5); Hematocrit 41.9 % (42-50); Hemoglobin 13.5 gm/dl (12.5-18.0); Lymphocyte (Absolute #) 1.78 (1.0-4.6); Lymphocytes % 16.8 % (24.0-44.0); Mean Cell Volume 92.9 fl (78-100); Mean Corpuscular Hemoglobin 29.9 pg (26-32); Mean Corpuscular Hgb Concent. 32.2 g/dl (32-36); Mean Platelet Volume 9.2 fl (7.5-11.0); Monocyte (Absolute #) 0.41 (0.0-1.3); Monocytes % 3.9 % (0.0-12.0); Neutrophil % 79.1 % (36.0-66.0); Platelet Count 321 K/mm3 (150-450); Red Blood Count 4.51 M/mm3 (4.1-5.6); Red Cell Distribution Width 13.3 % (11.5-14.0); White Blood Count 10.6 K/mm3 (4.0-10.5)
[2020-04-01 18:48] LABS: Appearance CLEAR (CLEAR); Bilirubin NEGATIVE (NEGATIVE); Blood NEGATIVE Ery/ul (0-5); Glucose >=500 mg/dL (NEGATIVE); Ketones TRACE (NEGATIVE); Leukocyte Esterase NEGATIVE (NEGATIVE); Nitrite NEGATIVE (NEGATIVE); Protein,Urine Dip NEGATIVE (Negative); Specific Gravity 1.025 (1.005-1.025); Urobilinogen NEGATIVE mg/dL (0-1)
[2020-04-01 18:53] LABS: INR 1.04 (0.8-3.0); PROTIME 11.8 SECONDS (8.83-12.87)
[2020-04-01 18:56] LABS: ALBUMIN 4.1 g/dL (3.5-5.0); ALKALINE PHOSPHATASE 78 U/L (38-126); ANION GAP 18.6 MEQ/L (5-15); BLOOD UREA NITROGEN 8 mg/dL (9-20); CHLORIDE 102 mmol/L (98-107); Calcium 9.3 mg/dL (8.4-10.2); Carbon Dioxide 18 mmol/L (22-30); Creatinine 1 0.69 mg/dL (0.66-1.25); EST GLOMERULAR FILTRATION RATE > 60.0 ML/MIN; Glucose 326 mg/dL (74-106); Potassium 3.5 mmol/L (3.5-5.1); SODIUM 135 mmol/L (137-145); Total Protein 6.9 g/dL (6.3-8.2)
[2020-04-01] MEDS ORDERED: BENADRYL 50 MG/ML IV ONE (19:00)
[2020-04-01] MEDS ORDERED: Compazine 10 MG/2 ML IV ONE (19:01)
[2020-04-01 19:02] LABS: SGOT/AST 28 U/L (17-59)
[2020-04-01] MEDS ORDERED: Compazine 10 MG/2 ML ONE (19:02)
[2020-04-01] MEDS ORDERED: BENADRYL 50 MG/ML ONE (19:02)
[2020-04-01 19:03] LABS: SGPT/ALT 26 U/L (0-50)
[2020-04-01 19:11] LABS: Bacteria NONE SEEN /HPF (NEGATIVE); RBC NONE SEEN /HPF (0-2)
[2020-04-01 19:39] LABS: Amphetamine,Urine NEGATIVE (NEGATIVE); Barbiturate,Urine NEGATIVE (NEGATIVE); Benzodiazepine,Urine NEGATIVE (NEGATIVE); Cocaine,Urine NEGATIVE (NEGATIVE); Methadone,Urine NEGATIVE (NEGATIVE); Opiate,Urine NEGATIVE (NEGATIVE); PCP,Urine NEGATIVE (NEGATIVE); THC,Urine NEGATIVE (NEGATIVE)
[2020-04-01 20:46] VITALS: O2SAT 99
[2020-04-01] MEDS ORDERED: HUMULIN R SQ ONE (22:12)
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
[2020-04-01] MEDS ORDERED: HUMULIN R ONE (22:16)
[2020-04-01 22:34] VITALS: BP 127/81; PULSE 80
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
--- NOTE | 2020-04-02 08:49 | XRAY ---
Indication: Headache. Comparison: January 30, 2020. Portable chest continues to demonstrate normal heart, lungs, and bony thorax.
== END 2020-04-01 22:41 | disposition home or self-care (01) ==
LOC: ED 17:59
DX: E86.0 Dehydration (principal); E10.65 Type 1 diabetes mellitus with hyperglycemia; R51 Headache
CPT/HCPCS: 36000; 36415; 70450; 71045; 80053; 80307; 81001; 82962; 83605; 83735; 85025; 85610; 96360; 96361; 96372; 96374; 96375; 99285; J1200; J1815; J2405; J3010

== ENCOUNTER 2020-04-19 11:28 | Emergency (ER) | payer BC ==
[2020-04-19] MEDS ORDERED: TORAdol 30 mg Injection ONE (11:59)
[2020-04-19] MEDS: TORAdol 30 mg Injection IM ONE (12:00)
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
[2020-04-19 12:10] VITALS: BP 136/87; PULSE 102; O2SAT 99
--- NOTE | 2020-04-19 19:40 | XRAY ---
Indication: Pain following injury 3 days ago. Comparison: None 4 view facial bones demonstrates normal bones, articulation, and soft tissues. Paranasal sinuses are clear.
== END 2020-04-19 12:24 | disposition home or self-care (01) ==
LOC: ED 11:28
DX: R51 Headache (principal); Y04.0XXA Assault by unarmed brawl or fight, initial encounter; Y93.9 Activity, unspecified
CPT/HCPCS: 70150; 96372; 99283; J1885

== ENCOUNTER 2020-07-20 17:58 | Emergency (ER) | payer BC ==
[2020-07-20 18:08] VITALS: BP 140/78; PULSE 100; O2SAT 96
[2020-07-20] MEDS ORDERED: TORAdol 30 mg Injection IV ONE (18:14)
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
[2020-07-20] MEDS ORDERED: TORAdol 30 mg Injection ONE (18:29)
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
--- NOTE | 2020-07-21 08:37 | XRAY ---
Indication: Anterior pain following injury one week ago. Comparison: None 2 view left ribs obtained. No bony, articular, or soft tissue abnormalities.
== END 2020-07-20 19:11 | disposition home or self-care (01) ==
LOC: ED 17:58
DX: S20.222A Contusion of left back wall of thorax, initial encounter (principal); X50.0XXA Overexertion from strenuous movement or load, initial encounter; Y93.72 Activity, wrestling; Y92.89 Other specified places as the place of occurrence of the external cause
CPT/HCPCS: 71045; 71100; 96372; 99284; J1885

== ENCOUNTER 2020-10-27 16:17 | Observation (INO) | payer BC ==
--- NOTE | 2020-10-27 16:53 | XRAY ---
Indication: Chest pain. Comparison: July 20, 2020. Portable chest continues to demonstrate normal heart, lungs, and bony thorax.
[2020-10-27 17:00] LABS: Absolute Neutrophil Ct (ANC) 9.72 (1.4-6.9); BASOPHIL % 0.3 % (0.0-0.4); Basophil (Absolute #) 0.03 (0-0.4); Eosinophil % 0.1 % (0.00-5.0); Eosinophil (Absolute #) 0.01 (0-0.5); Hematocrit 42.7 % (42-50); Hemoglobin 13.1 gm/dl (12.5-18.0); Lymphocyte (Absolute #) 1.16 (1.0-4.6); Lymphocytes % 10.3 % (24.0-44.0); Mean Cell Volume 92.4 fl (78-100); Mean Corpuscular Hemoglobin 28.4 pg (26-32); Mean Corpuscular Hgb Concent. 30.7 g/dl (32-36); Mean Platelet Volume 9.8 fl (7.5-11.0); Monocyte (Absolute #) 0.35 (0.0-1.3); Monocytes % 3.1 % (0.0-12.0); Neutrophil % 86.2 % (36.0-66.0); Platelet Count 390 K/mm3 (150-450); Red Blood Count 4.62 M/mm3 (4.1-5.6); Red Cell Distribution Width 13.4 % (11.5-14.0); White Blood Count 11.3 K/mm3 (4.0-10.5)
[2020-10-27 17:06] LABS: Total Protein 6.9 g/dL (6.3-8.2)
[2020-10-27 17:14] LABS: ALBUMIN 4.3 g/dL (3.5-5.0); ALKALINE PHOSPHATASE 162 U/L (38-126); ANION GAP 28.4 MEQ/L (5-15); BLOOD UREA NITROGEN 18 mg/dL (9-20); CHLORIDE 86 mmol/L (98-107); Calcium 9.3 mg/dL (8.4-10.2); NT PRO BNP 39.3 pg/mL (0-450); Potassium 5.2 mmol/L (3.5-5.1); SGOT/AST 32 U/L (17-59); SGPT/ALT 40 U/L (0-50); SODIUM 125 mmol/L (137-145)
[2020-10-27 17:19] LABS: Creatinine 1 1.06 mg/dL (0.66-1.25); EST GLOMERULAR FILTRATION RATE > 60.0 ML/MIN
[2020-10-27 17:21] LABS: Carbon Dioxide 14 mmol/L (22-30); Glucose 988 mg/dL (74-106)
[2020-10-27] MEDS ORDERED: Sodium Chloride 0.9% 1000 ML 1,000 ML IV STA ×2 (17:26→18:42)
[2020-10-27] MEDS ORDERED: Sodium Chloride 0.9% 1000 ML 1,000 ML ONE ×2 (17:29→18:47)
[2020-10-27 18:30] LABS: Appearance CLEAR (CLEAR); Bilirubin NEGATIVE (NEGATIVE); Blood NEGATIVE Ery/ul (0-5); Glucose >=500 mg/dL (NEGATIVE); Ketones SMALL (NEGATIVE); Leukocyte Esterase NEGATIVE (NEGATIVE); Nitrite NEGATIVE (NEGATIVE); Protein,Urine Dip NEGATIVE (Negative); Specific Gravity 1.023 (1.005-1.025); Urobilinogen NEGATIVE mg/dL (0-1)
[2020-10-27 18:38] LABS: Amphetamine,Urine NEGATIVE (NEGATIVE); Barbiturate,Urine NEGATIVE (NEGATIVE); Benzodiazepine,Urine NEGATIVE (NEGATIVE); Cocaine,Urine NEGATIVE (NEGATIVE); Methadone,Urine NEGATIVE (NEGATIVE); Opiate,Urine NEGATIVE (NEGATIVE); PCP,Urine NEGATIVE (NEGATIVE); THC,Urine NEGATIVE (NEGATIVE)
[2020-10-27] MEDS ORDERED: Compazine 10 MG/2 ML IV ONE (19:05)
[2020-10-27] MEDS ORDERED: Compazine 10 MG/2 ML ONE (19:12)
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
[2020-10-27 20:38] LABS: ALBUMIN 4.3 g/dL (3.5-5.0); ALKALINE PHOSPHATASE 172 U/L (38-126); ANION GAP 31.6 MEQ/L (5-15); BLOOD UREA NITROGEN 19 mg/dL (9-20); CHLORIDE 93 mmol/L (98-107); Calcium 9.3 mg/dL (8.4-10.2); Creatinine 1 1.12 mg/dL (0.66-1.25); EST GLOMERULAR FILTRATION RATE > 60.0 ML/MIN; Potassium 4.9 mmol/L (3.5-5.1); SGOT/AST 31 U/L (17-59); SGPT/ALT 39 U/L (0-50); Total Protein 7.1 g/dL (6.3-8.2)
[2020-10-27 20:53] LABS: Carbon Dioxide 12 mmol/L (22-30); Glucose 766 mg/dL (74-106); SODIUM 132 mmol/L (137-145)
[2020-10-27] MEDS ORDERED: HUMULIN R 100 UNIT in Sodium Chloride 0.9% 100 ML IVPB 100 ML IV PRN (20:55)
[2020-10-27] MEDS ORDERED: Lactated Ringers 1,000 ML IV SCH (21:00)
[2020-10-27] MEDS ORDERED: Sodium Chloride 0.9% 100 ML IVPB 100 ML IV ONE (21:01)
[2020-10-27] MEDS ORDERED: HUMULIN R ONE ×2 (21:01→21:24)
[2020-10-27] MEDS ORDERED: Lactated Ringers 1,000 ML IV ONE (21:02)
[2020-10-27 21:06] LABS: VBG BASE EXCESS -12.9 (-2.0-2.0); VBG CARBOXYHEMOGLOBIN 2.2 % T HGB (0.0-6.9); VBG HCO3- 12.4 meq/L (22-28); VBG O2 SATURATION 96.6 (95-100); VBG POTASSIUM 5.8 (3.5-5.1); VBG pH 7.27 (7.32-7.42)
[2020-10-27 22:40] LABS: INFLUENZA A NEGATIVE (NEGATIVE); INFLUENZA B NEGATIVE (NEGATIVE); RESPIRATORY SYNCTIAL VIRUS NEGATIVE (Negative)
[2020-10-27] MEDS ORDERED: POTASSIUM CHLORIDE 20 mEq IN WATER 100ML 100 ML IV ONE (22:40)
[2020-10-27] MEDS ORDERED: POTASSIUM CHLORIDE 20 mEq IN WATER 100ML 20 MEQ/100 ML BAG IV ONE (22:40)
[2020-10-27] MEDS ORDERED: Senokot-S Tablet PO PRN (23:43)
[2020-10-27] MEDS ORDERED: MAALOX ES 30 ML UNIT DOSE PO PRN (23:43)
[2020-10-27] MEDS ORDERED: Zofran 4 MG/2 ML VIAL IV PRN (23:43)
[2020-10-27] MEDS ORDERED: TYLENOL 325 MG PO PRN (23:43)
[2020-10-27] MEDS ORDERED: MILK OF MAGNESIA 30 ML PO PRN (23:43)
[2020-10-28] MEDS ORDERED: HUMULIN R 100 UNIT in Sodium Chloride 0.9% 100 ML IVPB 100 ML IV PRN ×2
[2020-10-28] MEDS ORDERED: Lactated Ringers 1,000 ML IV SCH
[2020-10-28 01:04] LABS: ANION GAP 31.2 MEQ/L (5-15); BLOOD UREA NITROGEN 18 mg/dL (9-20); CHLORIDE 97 mmol/L (98-107); Calcium 10.2 mg/dL (8.4-10.2); Creatinine 1 1.24 mg/dL (0.66-1.25); EST GLOMERULAR FILTRATION RATE > 60.0 ML/MIN; Glucose 332 mg/dL (74-106); Potassium 4.4 mmol/L (3.5-5.1); SODIUM 138 mmol/L (137-145)
[2020-10-28 01:14] LABS: Carbon Dioxide 15 mmol/L (22-30)
[2020-10-28 04:46] LABS: Hematocrit 39.5 % (42-50); Mean Corpuscular Hemoglobin 28.6 pg (26-32); Mean Corpuscular Hgb Concent. 32.9 g/dl (32-36); Mean Platelet Volume 8.9 fl (7.5-11.0); Platelet Count 400 K/mm3 (150-450); Red Blood Count 4.54 M/mm3 (4.1-5.6); Red Cell Distribution Width 13.3 % (11.5-14.0); White Blood Count 12.9 K/mm3 (4.0-10.5)
[2020-10-28 04:58] LABS: ANION GAP 18.9 MEQ/L (5-15); BLOOD UREA NITROGEN 16 mg/dL (9-20); CHLORIDE 98 mmol/L (98-107); Calcium 9.5 mg/dL (8.4-10.2); Carbon Dioxide 22 mmol/L (22-30); Creatinine 1 0.98 mg/dL (0.66-1.25); EST GLOMERULAR FILTRATION RATE > 60.0 ML/MIN; Glucose 161 mg/dL (74-106); Potassium 3.9 mmol/L (3.5-5.1); SODIUM 135 mmol/L (137-145)
[2020-10-28 05:09] LABS: Risk Ratio 4.5
[2020-10-28] MEDS ORDERED: D5W/0.45NS W/ 20mEq KCl 1000 ML 1,000 ML IV ONE (05:16)
[2020-10-28] MEDS: NITRO-BID 2% UD PACKETS TOP SCH ×2 (05:29→13:49)
[2020-10-28] MEDS ORDERED: D5W/0.45NS W/ 20mEq KCl 1000 ML 1,000 ML IV SCH (05:30)
[2020-10-28 08:24] VITALS: BP 120/62
[2020-10-28 08:34] VITALS: O2SAT 97
--- NOTE | 2020-10-28 09:11 | PCM.SSS ---
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 07:56 WBC (4.0-10.5) K/mm3 RBC (4.1-5.6) M/mm3 Hgb (12.5-18.0) gm/dl Hct (42-50) % MCV (78-100) fl MCH (26-32) pg MCHC (32-36) g/dl RDW (11.5-14.0) % Plt Count (150-450) K/mm3 MPV (7.5-11.0) fl Gran % (36.0-66.0) % Eos # (Auto) (0-0.5) Absolute Lymphs (auto) (1.0-4.6) Absolute Monos (auto) (0.0-1.3) Lymphocytes % (24.0-44.0) % Monocytes % (0.0-12.0) % Eosinophils % (0.00-5.0) % Basophils % (0.0-0.4) % Absolute Granulocytes (1.4-6.9) Basophils # (0-0.4) D-Dimer (215-500) ng/mL pO2/FiO2 Ratio % VBG pH (7.32-7.42) VBG pCO2 at Pat Temp (42-55) mm/Hg VBG pO2 at Pat Temp (25-40) mm/Hg VBG HCO3 (22-28) meq/L VBG O2 Sat (Bhavik) (95-100) VBG Base Excess (-2.0-2.0) VBG Hemoglobin VBG Carboxyhemoglobin (0.0-6.9) % T HGB POC Potassium (3.5-5.1) Sodium (137-145) mmol/L Potassium (3.5-5.1) mmol/L Chloride (98-107) mmol/L Carbon Dioxide (22-30) mmol/L Anion Gap (5-15) MEQ/L BUN (9-20) mg/dL Creatinine (0.66-1.25) mg/dL Estimated GFR ML/MIN Glucose (74-106) mg/dL POC Glucometer 146 H 151 H (50 to 500) mg/dL Calcium (8.4-10.2) mg/dL Total Bilirubin (0.2-1.3) mg/dL AST (17-59) U/L ALT (0-50) U/L Alkaline Phosphatase (38-126) U/L Troponin I (0.000-0.034) ng/mL NT-Pro-B Natriuret Pep (0-450) pg/mL Serum Total Protein (6.3-8.2) g/dL Albumin (3.5-5.0) g/dL Triglycerides (30-150) mg/dL Cholesterol (50-200) mg/dL LDL Cholesterol (30-100) mg/dL HDL Cholesterol (40-60) mg/dL Heart Disease Risk Ratio Urine Color (YELLOW) Urine Appearance (CLEAR) Urine pH (5-6) Ur Specific [place] (1.005-1.025) Urine Protein (Negative) Urine Ketones (NEGATIVE) Urine Blood (0-5) Keegan/ul Urine Nitrite (NEGATIVE) Urine Bilirubin (NEGATIVE) Urine Urobilinogen (0-1) mg/dL Ur Leukocyte Esterase (NEGATIVE) Urine WBC (Auto) (0-5) /HPF Urine RBC (Auto) (0-2) /HPF U Epithel Cells (Auto) (FEW) /HPF Urine Bacteria (Auto) (NEGATIVE) /HPF Urine Culture Reflexed (NO) Urine Glucose (NEGATIVE) mg/dL Urine Opiates Level (NEGATIVE) Ur Methadone (NEGATIVE) Urine Barbiturates (NEGATIVE) Ur Phencyclidine (PCP) (NEGATIVE) Urine Amphetamine (NEGATIVE) U Benzodiazepine Level (NEGATIVE) Urine Cocaine (NEGATIVE) Urine Marijuana (THC) (NEGATIVE) Influenza Type A Ag (NEGATIVE) Influenza Type B Ag (NEGATIVE) RSV (PCR) (Negative) SARS-CoV-2 (PCR) (NEGATIVE) Micro Results-Entire Visit: Accuchecks Date 10/28/20 Date 10/28/20 Date 10/28/20 Date 10/28/20 Date 10/28/20 Date 10/28/20 Time 07:58 Time 07:00 Time 06:00 Time 05:00 Time 04:00 Time 03:00 - Radiology Exams Ordered Rad Exams-Entire Visit: Radiology Procedures Category Date Time Status CHEST 1 VIEW (PORTABLE) Stat Exams 10/27/20 16:37 Completed - Procedures and Test Procedures and Tests throughout Hospitalization: Therapy Orders & Screens 10/28/20 00:22 EKG ROUTINE Comment: Diagnosis: ACS, DKA 10/29/20 05:00 EKG ROUTINE Comment: Diagnosis: ACS, DKA 10/30/20 05:00 EKG ROUTINE Comment: Diagnosis: ACS, DKA 10/31/20 05:00 EKG ROUTINE Comment: Diagnosis: ACS, DKA - Discharge Disposition: Home, Self-Care Condition: Stable Prescriptions: No Action Insulin Lispro [Humalog] 1 unit SQ UD Insulin Detemir [Levemir] 38 unit SQ QAM Insulin Detemir [Levemir] 22 unit SQ HS Metoprolol Tartrate 25 mg [Lopressor 25MG Tab] 12.5 mg PO UD Atorvastatin Calcium [Lipitor 20MG Tablet] 20 tab PO QHS Aspirin 81 gm Chew [Baby Aspirin 81 mg Chew] 81 mg PO DAILY Instructions: Diabetic Ketoacidosis (DC) Follow up with: ANANTH WHITMAN [CONSULTING PHYSICIAN] - Call for Appointment ADDY HESTER [NON-STAFF PHY W/O PRIVILEGES] - Call for Appointment
[2020-10-28 09:29] LABS: ANION GAP 15.8 MEQ/L (5-15); BLOOD UREA NITROGEN 14 mg/dL (9-20); CHLORIDE 100 mmol/L (98-107); Calcium 9.3 mg/dL (8.4-10.2); Carbon Dioxide 24 mmol/L (22-30); Creatinine 1 0.78 mg/dL (0.66-1.25); EST GLOMERULAR FILTRATION RATE > 60.0 ML/MIN; Glucose 155 mg/dL (74-106); Potassium 3.8 mmol/L (3.5-5.1); SODIUM 136 mmol/L (137-145)
[2020-10-28] MEDS ORDERED: NON-FORMULARY ITEM (Insulin Lispro 1 UNIT) SQ SCH (09:45)
[2020-10-28] MEDS ORDERED: HUMALOG SQ SCH (09:45)
[2020-10-28] MEDS ORDERED: ECOTRIN 81 MG PO SCH (10:00)
[2020-10-28] MEDS ORDERED: INSULIN DETEMIR 38 UNIT SQ SCH (10:00)
[2020-10-28] MEDS ORDERED: Ecotrin 325 MG PO SCH (10:00)
[2020-10-28] MEDS ORDERED: Lantus Insulin SQ SCH ×2 (10:00→22:00)
[2020-10-28] MEDS ORDERED: Lopressor 25MG Tab PO SCH (10:00)
[2020-10-28] MEDS ORDERED: BABY ASPIRIN 81 MG CHEW PO SCH (10:00)
[2020-10-28] MEDS ORDERED: HUMALOG SQ PRN (11:40)
[2020-10-28] MEDS: HUMALOG SQ PRN ×2 (12:00→14:31)
[2020-10-28 12:07] VITALS: PULSE 97
[2020-10-28 13:33] LABS: ANION GAP 16.8 MEQ/L (5-15); BLOOD UREA NITROGEN 14 mg/dL (9-20); CHLORIDE 97 mmol/L (98-107); Calcium 9.2 mg/dL (8.4-10.2); Carbon Dioxide 24 mmol/L (22-30); Creatinine 1 0.84 mg/dL (0.66-1.25); EST GLOMERULAR FILTRATION RATE > 60.0 ML/MIN; Glucose 382 mg/dL (74-106); Potassium 4.5 mmol/L (3.5-5.1); SODIUM 133 mmol/L (137-145)
[2020-10-28] MEDS ORDERED: ATORVASTATIN CALCIUM PO SCH (22:00)
[2020-10-28] MEDS ORDERED: ZOCOR 20MG PO SCH (22:00)
[2020-10-28] MEDS ORDERED: INSULIN DETEMIR 22 UNIT SQ SCH (22:00)
== END 2020-10-28 14:36 | disposition home or self-care (01) ==
LOC: ED 16:17 → ICU 23:24
PROVIDERS: ADMIT Family Medicine; ATTEND Family Medicine
DX: R07.9 Chest pain, unspecified (principal); E10.10 Type 1 diabetes mellitus with ketoacidosis without coma; I25.10 Atherosclerotic heart disease of native coronary artery without angina pectoris; Z79.4 Long term (current) use of insulin; Z79.899 Other long term (current) drug therapy; R00.2 Palpitations; F41.9 Anxiety disorder, unspecified; R11.2 Nausea with vomiting, unspecified
CPT/HCPCS: 0241U; 36000; 36415; 71045; 80048; 80053; 80061; 80307; 81001; 82805; 82947; 83036; 83721; 83880; 83930; 84484; 85025; 85027; 85379; 93005; 93041; 94760; 96360; 96361; 96365; 96374; 96375; 99285; 93268; J1815; J1817; J3480; A9270-GY; G0378

== ENCOUNTER 2020-11-10 11:09 | Emergency (ER) | payer BC ==
[2020-11-10 11:23] VITALS: BP 142/75; PULSE 93; O2SAT 97
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
[2020-11-10] MEDS ORDERED: TORAdol 30 mg Injection IM ONE (12:03)
[2020-11-10] MEDS ORDERED: TORAdol 30 mg Injection ONE (12:05)
== END 2020-11-10 12:14 | disposition home or self-care (01) ==
LOC: ED 11:09
DX: W22.01XA Walked into wall, initial encounter (principal); Y93.89 Activity, other specified; Y92.89 Other specified places as the place of occurrence of the external cause
CPT/HCPCS: 73130; 96372; 99284; J1885

== ENCOUNTER 2021-03-09 22:32 | Emergency (ER) | payer BC ==
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
[2021-03-09] MEDS ORDERED: TORAdol 30 mg Injection IM ONE (23:48)
[2021-03-09] MEDS ORDERED: Compazine 10 MG/2 ML IM ONE (23:49)
[2021-03-10] MEDS ORDERED: TORAdol 30 mg Injection ONE (00:16)
[2021-03-10] MEDS ORDERED: Compazine 10 MG/2 ML ONE (00:16)
[2021-03-10 00:44] VITALS: BP 110/62; PULSE 90
[2021-03-10 01:13] VITALS: O2SAT 97
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
== END 2021-03-10 00:44 | disposition home or self-care (01) ==
LOC: ED 22:32
DX: R51.9 Headache, unspecified (principal)
CPT/HCPCS: 70450; 96372; 99284; J1885

== ENCOUNTER 2021-05-17 20:57 | Emergency (ER) | payer BC ==
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
[2021-05-17] MEDS ORDERED: Zofran 4 MG/2 ML VIAL ONE (21:28)
[2021-05-17] MEDS ORDERED: Sodium Chloride 0.9% 1000 ML 1,000 ML ONE ×2 (21:29→22:30)
[2021-05-17] MEDS ORDERED: HUMULIN R ONE ×2 (21:29→22:36)
[2021-05-17] MEDS: Sodium Chloride 0.9% 1000 ML 1,000 ML IV STA ×2 (21:31→22:34)
[2021-05-17] MEDS: HUMULIN R IV ONE ×3 (21:31→22:36)
[2021-05-17] MEDS: Zofran 4 MG/2 ML VIAL IV ONE (21:31)
[2021-05-17 21:38] LABS: Absolute Neutrophil Ct (ANC) 4.36 (1.4-6.9); BASOPHIL % 0.4 % (0.0-0.4); Basophil (Absolute #) 0.03 (0-0.4); Eosinophil % 2.1 % (0.00-5.0); Eosinophil (Absolute #) 0.16 (0-0.5); Hematocrit 43.5 % (42-50); Hemoglobin 14.9 gm/dl (12.5-18.0); Lymphocyte (Absolute #) 2.64 (1.0-4.6); Lymphocytes % 34.2 % (24.0-44.0); Mean Cell Volume 84.1 fl (78-100); Mean Corpuscular Hemoglobin 28.8 pg (26-32); Mean Corpuscular Hgb Concent. 34.3 g/dl (32-36); Mean Platelet Volume 10.3 fl (7.5-11.0); Monocyte (Absolute #) 0.53 (0.0-1.3); Monocytes % 6.9 % (0.0-12.0); Neutrophil % 56.4 % (36.0-66.0); Platelet Count 394 K/mm3 (150-450); Red Blood Count 5.17 M/mm3 (4.1-5.6); Red Cell Distribution Width 13.9 % (11.5-14.0); White Blood Count 7.7 K/mm3 (4.0-10.5)
[2021-05-17 21:42] LABS: Appearance CLEAR (CLEAR); Bilirubin NEGATIVE (NEGATIVE); Blood NEGATIVE Ery/ul (0-5); Glucose >=500 mg/dL (NEGATIVE); Ketones NEGATIVE (NEGATIVE); Leukocyte Esterase NEGATIVE (NEGATIVE); Nitrite NEGATIVE (NEGATIVE); Protein,Urine Dip NEGATIVE (Negative); Specific Gravity 1.024 (1.005-1.025); Urobilinogen NEGATIVE mg/dL (0-1)
[2021-05-17 21:50] LABS: ALBUMIN 4.8 g/dL (3.5-5.0); ALKALINE PHOSPHATASE 75 U/L (38-126); ANION GAP 20.8 MEQ/L (5-15); BLOOD UREA NITROGEN 17 mg/dL (9-20); CHLORIDE 97 mmol/L (98-107); Calcium 10.1 mg/dL (8.4-10.2); Carbon Dioxide 23 mmol/L (22-30); Creatinine 1 0.83 mg/dL (0.66-1.25); EST GLOMERULAR FILTRATION RATE > 60.0 ML/MIN; MAGNESIUM 1.8 mg/dL (1.6-2.3); SGOT/AST 15 U/L (17-59); SGPT/ALT 30 U/L (0-50); SODIUM 136 mmol/L (137-145); Total Protein 8.1 g/dL (6.3-8.2)
[2021-05-17 21:57] LABS: Glucose 593 mg/dL (74-106)
[2021-05-17 23:04] VITALS: O2SAT 98
[2021-05-18 00:28] VITALS: BP 116/90; PULSE 80
== END 2021-05-18 00:28 | disposition home or self-care (01) ==
LOC: ED 20:57
DX: E10.65 Type 1 diabetes mellitus with hyperglycemia (principal); Z91.14 Patient's other noncompliance with medication regimen
CPT/HCPCS: 36000; 36415; 80053; 81001; 82947; 83605; 83735; 85025; 93041; 94760; 96360; 96374; 96375; 96376; 99284; J1815; J2405

== ENCOUNTER 2021-05-18 15:15 | Emergency (ER) | payer BC ==
[2021-05-18] MEDS ORDERED: Sodium Chloride 0.9% 1000 ML 1,000 ML ONE ×2 (15:53→18:26)
[2021-05-18] MEDS: Sodium Chloride 0.9% 1000 ML 1,000 ML IV STA ×2 (15:54→18:29)
[2021-05-18 15:57] LABS: VBG BASE EXCESS -1.3 (-2.0-2.0); VBG CARBOXYHEMOGLOBIN 5.1 % T HGB (0.0-6.9); VBG HCO3- 24.8 meq/L (22-28); VBG HEMOGLOBIN 13.6; VBG O2 SATURATION 76.1 (95-100); VBG POTASSIUM 4.9 (3.5-5.1); VBG pH 7.34 (7.32-7.42)
[2021-05-18 16:00] LABS: Absolute Neutrophil Ct (ANC) 7.37 (1.4-6.9); BASOPHIL % 0.2 % (0.0-0.4); Basophil (Absolute #) 0.02 (0-0.4); Eosinophil % 0.7 % (0.00-5.0); Eosinophil (Absolute #) 0.07 (0-0.5); Hematocrit 40.2 % (42-50); Hemoglobin 13.3 gm/dl (12.5-18.0); Lymphocyte (Absolute #) 1.78 (1.0-4.6); Lymphocytes % 18.4 % (24.0-44.0); Mean Cell Volume 86.3 fl (78-100); Mean Corpuscular Hemoglobin 28.5 pg (26-32); Mean Corpuscular Hgb Concent. 33.1 g/dl (32-36); Mean Platelet Volume 10.1 fl (7.5-11.0); Monocyte (Absolute #) 0.45 (0.0-1.3); Monocytes % 4.6 % (0.0-12.0); Neutrophil % 76.1 % (36.0-66.0); Platelet Count 338 K/mm3 (150-450); Red Blood Count 4.66 M/mm3 (4.1-5.6); Red Cell Distribution Width 13.6 % (11.5-14.0); White Blood Count 9.7 K/mm3 (4.0-10.5)
[2021-05-18 16:09] LABS: ALBUMIN 4.5 g/dL (3.5-5.0); ALKALINE PHOSPHATASE 76 U/L (38-126); ANION GAP 20.2 MEQ/L (5-15); BLOOD UREA NITROGEN 19 mg/dL (9-20); CHLORIDE 90 mmol/L (98-107); Calcium 9.5 mg/dL (8.4-10.2); Carbon Dioxide 23 mmol/L (22-30); Creatinine 1 0.97 mg/dL (0.66-1.25); EST GLOMERULAR FILTRATION RATE > 60.0 ML/MIN; Potassium 4.8 mmol/L (3.5-5.1); SGOT/AST 18 U/L (17-59); SGPT/ALT 16 U/L (0-50); SODIUM 128 mmol/L (137-145); Total Protein 7.3 g/dL (6.3-8.2)
[2021-05-18 16:17] LABS: Glucose 747 mg/dL (74-106)
[2021-05-18] MEDS ORDERED: HUMULIN R ONE ×2 (16:27→18:26)
[2021-05-18] MEDS: HUMULIN R IV ONE ×2 (16:28→18:38)
[2021-05-18 16:36] LABS: Appearance CLEAR (CLEAR); Bacteria RARE /HPF (NEGATIVE); Bilirubin NEGATIVE (NEGATIVE); Blood NEGATIVE Ery/ul (0-5); Glucose >=500 mg/dL (NEGATIVE); Ketones TRACE (NEGATIVE); Leukocyte Esterase NEGATIVE (NEGATIVE); Nitrite NEGATIVE (NEGATIVE); Protein,Urine Dip NEGATIVE (Negative); RBC 0-2 /HPF (0-2); Specific Gravity 1.023 (1.005-1.025); Urobilinogen NEGATIVE mg/dL (0-1)
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
[2021-05-18] MEDS: Sodium Chloride 0.9% 100 ML BAG 100 ML IV ONE (18:28)
[2021-05-18] MEDS: Lantus Insulin SQ STA (21:08)
[2021-05-18 21:16] VITALS: BP 121/83; PULSE 96; O2SAT 95
== END 2021-05-18 21:14 | disposition home or self-care (01) ==
LOC: ED 15:15
DX: E10.65 Type 1 diabetes mellitus with hyperglycemia (principal)
CPT/HCPCS: 36000; 36415; 80053; 81001; 82805; 82947; 85025; 87086; 96360; 96361; 96372; 96374; 96376; 99284; J1815; A9270-GY

== ENCOUNTER 2021-06-25 18:21 | Emergency (ER) | payer BC ==
[2021-06-25 18:36] VITALS: BP 147/92; PULSE 93; O2SAT 98
[2021-06-25] MEDS ORDERED: TORAdol 30 mg Injection IM ONE (18:37)
[2021-06-25] MEDS ORDERED: TORAdol 30 mg Injection ONE (18:38)
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
--- NOTE | 2021-06-26 08:04 | XRAY ---
Indication: Headache and right jaw pain following injury. Multiple contiguous axial images obtained through the head without contrast. Comparison: February 27, 2021 Normal appearing brain parenchyma, ventricles, and bony calvarium. Visualized paranasal sinuses and mastoid air cells are clear. Impression: Continued normal CT head without contrast exam. Comment: Preliminary interpretation made by [facility]. No critical discrepancy.
--- NOTE | 2021-06-26 08:08 | XRAY ---
Indication: Headache and right jaw pain following injury. Multiple contiguous axial images obtained through the facial bones. Sagittal and coronal reformatted images obtained. Comparison: None Bilateral dental amalgams produces beam artifact. Axial images negative for acute fracture, suspicious bony lesions, or radiopaque foreign body. Orbits including roof, xie, and floors are intact. TMJ are bilaterally symmetric. Visualized cervical spine intact. Paranasal sinuses and nasal passages are clear. Visualized noncontrast soft tissues demonstrates scattered small submandibular and cervical lymph nodes bilaterally presumed reactive, largest right submandibular measuring 1.6 x 2.3 cm. Impression: Scattered reactive submandibular/cervical lymph nodes. Remaining CT facial bones is negative. Comment: Preliminary interpretation made by [facility]. No critical discrepancy.
== END 2021-06-25 19:45 | disposition home or self-care (01) ==
LOC: ED 18:21
DX: S00.83XA Contusion of other part of head, initial encounter (principal); Y04.2XXA Assault by strike against or bumped into by another person, initial encounter; Y92.009 Unspecified place in unspecified non-institutional (private) residence as the place of occurrence of the external cause; S09.90XA Unspecified injury of head, initial encounter; I10 Essential (primary) hypertension; E10.8 Type 1 diabetes mellitus with unspecified complications
CPT/HCPCS: 70450; 70486; 96372; 99284; J1885

== ENCOUNTER 2022-01-04 03:15 | Emergency (ER) | payer SELFPAY ==
[2022-01-04] MEDS ORDERED: Sodium Chloride 0.9% 1000 ML 1,000 ML IV STA (03:59)
[2022-01-04 04:09] LABS: Absolute Neutrophil Ct (ANC) 2.86 x10^3/uL (1.4-6.9); Basophil (Absolute #) 0.04 x10^3/uL (0-0.4); Eosinophil % 1.8 % (0.00-5.0); Hematocrit 45.3 % (42-50); Hemoglobin 15.1 g/dL (12.5-18.0); Lymphocyte (Absolute #) 1.74 x10^3/uL (1.0-4.6); Lymphocytes % 31.9 % (24.0-44.0); Mean Cell Volume 85.3 fL (78-100); Mean Corpuscular Hemoglobin 28.4 pg (26-32); Mean Corpuscular Hgb Concent. 33.3 g/dL (32-36); Mean Platelet Volume 9.7 fL (7.5-11.0); Monocytes % 12.8 % (0.0-12.0); Neutrophil % 52.6 % (36.0-66.0); Platelet Count 266 x10^3/uL (150-450); Red Blood Count 5.31 x10^6/uL (4.1-5.6); Red Cell Distribution Width 13.2 % (11.5-14.0); White Blood Count 5.5 x10^3/uL (4.0-10.5)
[2022-01-04] MEDS ORDERED: Sodium Chloride 0.9% 1000 ML 1,000 ML ONE (04:16)
[2022-01-04 04:21] LABS: ANION GAP 16.1 MEQ/L (5-15); BLOOD UREA NITROGEN 12 mg/dL (9-20); CHLORIDE 102 mmol/L (98-107); Calcium 9.8 mg/dL (8.4-10.2); Carbon Dioxide 24 mmol/L (22-30); Creatinine 1 0.97 mg/dL (0.66-1.25); EST GLOMERULAR FILTRATION RATE > 60.0 ML/MIN; Glucose 132 mg/dL (74-106); Potassium 3.3 mmol/L (3.5-5.1); SODIUM 138 mmol/L (137-145)
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
[2022-01-04] MEDS ORDERED: Klor Con PO ONE ×2 (04:27→05:05)
[2022-01-04 05:07] VITALS: BP 117/81; PULSE 75; O2SAT 96
--- NOTE | 2022-01-04 09:18 | XRAY ---
Indication: Left-sided pain. Comparison: October 27, 2020. Portable chest continues to demonstrate normal heart, lungs, and bony thorax.
== END 2022-01-04 05:21 | disposition home or self-care (01) ==
LOC: ED 03:15
DX: R07.81 Pleurodynia (principal); R53.1 Weakness; E87.6 Hypokalemia; R53.83 Other fatigue; E10.9 Type 1 diabetes mellitus without complications; I10 Essential (primary) hypertension; Z72.0 Tobacco use; Z28.310 Unvaccinated for COVID-19
CPT/HCPCS: 36000; 36415; 71045; 80048; 85025; 99284; A9270-GY

== ENCOUNTER 2022-01-15 14:11 | Emergency (ER) | payer SELFPAY ==
[2022-01-15 14:29] VITALS: O2SAT 95
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
[2022-01-15 14:47] LABS: Absolute Neutrophil Ct (ANC) 4.63 x10^3/uL (1.4-6.9); Basophil (Absolute #) 0.03 x10^3/uL (0-0.4); Eosinophil % 2.1 % (0.00-5.0); Eosinophil (Absolute #) 0.16 x10^3/uL (0-0.5); Hematocrit 43.2 % (42-50); Hemoglobin 14.2 g/dL (12.5-18.0); Lymphocyte (Absolute #) 2.43 x10^3/uL (1.0-4.6); Lymphocytes % 32.1 % (24.0-44.0); Mean Cell Volume 84.7 fL (78-100); Mean Corpuscular Hemoglobin 27.8 pg (26-32); Mean Corpuscular Hgb Concent. 32.9 g/dL (32-36); Mean Platelet Volume 9.1 fL (7.5-11.0); Monocyte (Absolute #) 0.31 x10^3/uL (0.0-1.3); Monocytes % 4.1 % (0.0-12.0); Platelet Count 333 x10^3/uL (150-450); Red Cell Distribution Width 12.8 % (11.5-14.0); White Blood Count 7.6 x10^3/uL (4.0-10.5)
[2022-01-15 15:00] LABS: Appearance CLEAR (CLEAR); Bilirubin NEGATIVE (NEGATIVE); Dipstick done @ ? MAIN LAB; Glucose >=1000 mg/dL (NEGATIVE); Ketones NEGATIVE (NEGATIVE); Nitrite NEGATIVE (NEGATIVE); Protein,Urine Dip NEGATIVE (Negative); RBC NEGATIVE Ery/ul (0-5); Urobilinogen 0.2 mg/dL (0-1)
[2022-01-15 15:01] LABS: Urine Cultured Indicated? NO
[2022-01-15 15:05] LABS: ALBUMIN 4.1 g/dL (3.5-5.0); ALKALINE PHOSPHATASE 104 U/L (38-126); ANION GAP 18.6 MEQ/L (5-15); BLOOD UREA NITROGEN 17 mg/dL (9-20); CHLORIDE 99 mmol/L (98-107); Calcium 9.8 mg/dL (8.4-10.2); Carbon Dioxide 23 mmol/L (22-30); Creatinine 1 0.85 mg/dL (0.66-1.25); EST GLOMERULAR FILTRATION RATE > 60.0 ML/MIN; Glucose 361 mg/dL (74-106); Potassium 4.4 mmol/L (3.5-5.1); SGOT/AST 29 U/L (17-59); SGPT/ALT 38 U/L (0-50); SODIUM 137 mmol/L (137-145); Total Protein 7.4 g/dL (6.3-8.2)
[2022-01-15 15:59] VITALS: BP 121/74; PULSE 87
== END 2022-01-15 15:59 | disposition home or self-care (01) ==
LOC: ED 14:11
DX: E10.65 Type 1 diabetes mellitus with hyperglycemia (principal); R53.83 Other fatigue; I10 Essential (primary) hypertension; Z72.0 Tobacco use; Z28.310 Unvaccinated for COVID-19
CPT/HCPCS: 36415; 80053; 81015; 82947; 85025; 99283

== ENCOUNTER 2022-04-21 22:48 | Emergency (ER) | payer BC ==
[2022-04-21 23:49] VITALS: O2SAT 97
[2022-04-21] MEDS ORDERED: TORAdol 30 mg Injection IM ONE (23:55)
[2022-04-21] MEDS ORDERED: Augmentin 875-125 Tablet PO ONE (23:55)
[2022-04-22] MEDS ORDERED: TORAdol 30 mg Injection ONE
[2022-04-22] MEDS ORDERED: Augmentin 875-125 Tablet ONE
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
[2022-04-22 00:05] VITALS: BP 148/95; PULSE 76
== END 2022-04-22 00:19 | disposition home or self-care (01) ==
LOC: ED 22:48
DX: H66.91 Otitis media, unspecified, right ear (principal); R51.9 Headache, unspecified; H92.01 Otalgia, right ear; E10.9 Type 1 diabetes mellitus without complications; I10 Essential (primary) hypertension; Z79.4 Long term (current) use of insulin; Z28.310 Unvaccinated for COVID-19
CPT/HCPCS: 96372; 99283; J1885; A9270-GY

== ENCOUNTER 2022-08-18 11:32 | Emergency (ER) | payer BC ==
[2022-08-18 11:54] VITALS: BP 124/79
[2022-08-18] MEDS ORDERED: Zofran 4 MG/2 ML VIAL IV ONE (12:02)
[2022-08-18] MEDS ORDERED: Sodium Chloride 0.9% 1000 ML 1,000 ML IV STA ×3 (12:02→14:10)
[2022-08-18] MEDS ORDERED: PROTONIX 40 MG IV IV ONE ×2 (12:02→12:22)
[2022-08-18 12:15] LABS: Absolute Neutrophil Ct (ANC) 11.46 x10^3/uL (1.4-6.9); BASOPHIL % 0.2 % (0.0-0.4); Basophil (Absolute #) 0.02 x10^3/uL (0-0.4); Eosinophil % 0.1 % (0.00-5.0); Eosinophil (Absolute #) 0.01 x10^3/uL (0-0.5); Hematocrit 45.3 % (42-50); Hemoglobin 14.8 g/dL (12.5-18.0); IMMATURE GRAN # 0.03 x10^3u/L (0.00-0.03); IMMATURE GRAN % 0.2 % (0.00-0.4); Lymphocyte (Absolute #) 0.64 x10^3/uL (1.0-4.6); Mean Cell Volume 86.1 fL (78-100); Mean Corpuscular Hemoglobin 28.1 pg (26-32); Mean Corpuscular Hgb Concent. 32.7 g/dL (32-36); Mean Platelet Volume 9.4 fL (7.5-11.0); Monocyte (Absolute #) 0.65 x10^3/uL (0.0-1.3); Monocytes % 5.1 % (0.0-12.0); Neutrophil % 89.4 % (36.0-66.0); Platelet Count 319 x10^3/uL (150-450); Red Blood Count 5.26 x10^6/uL (4.1-5.6); Red Cell Distribution Width 12.8 % (11.5-14.0); White Blood Count 12.8 x10^3/uL (4.0-10.5)
[2022-08-18] MEDS ORDERED: Zofran 4 MG/2 ML VIAL ONE (12:21)
[2022-08-18] MEDS ORDERED: Sodium Chloride 0.9% 1000 ML 1,000 ML ONE ×3 (12:22→14:29)
[2022-08-18 12:28] LABS: ALBUMIN 4.4 g/dL (3.5-5.0); ALKALINE PHOSPHATASE 96 U/L (38-126); ANION GAP 16.3 MEQ/L (5-15); BLOOD UREA NITROGEN 18 mg/dL (9-20); CHLORIDE 99 mmol/L (98-107); Calcium 9.1 mg/dL (8.4-10.2); Carbon Dioxide 25 mmol/L (22-30); Creatinine 1 0.99 mg/dL (0.66-1.25); EST GLOMERULAR FILTRATION RATE > 60.0 ML/MIN; Glucose 224 mg/dL (74-106); LIPASE 52 U/L (23-300); Potassium 3.9 mmol/L (3.5-5.1); SGOT/AST 26 U/L (17-59); SODIUM 136 mmol/L (137-145); Total Protein 7.5 g/dL (6.3-8.2)
[2022-08-18 12:37] LABS: SGPT/ALT 32 U/L (0-50)
[2022-08-18 13:45] VITALS: PULSE 70; O2SAT 97
[2022-08-18 14:07] LABS: Appearance Clear (Clear); Bacteria None Seen /HPF (None Seen); Bilirubin Negative (Negative); Blood Negative (Negative); Epithelial Cells None Seen /HPF (None Seen); Glucose, Urine >=1000 mg/dL (Negative); Hyaline Casts NONE SEEN /LPF (0-2); Ketones 15 (Negative); Leukocyte Esterase Negative (Negative); Nitrite Negative (Negative); Protein,Urine Dip Negative (Negative); RBC 0-2 /HPF (0-5); Specific Gravity >=1.030 (1.005-1.030); Urobilinogen 0.2 mg/dL (0.2); WBC 0-2 /HPF (0-5)
[2022-08-18 14:11] LABS: ADD URINE CULTURE? NO (NO)
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
== END 2022-08-18 15:45 | disposition home or self-care (01) ==
LOC: ED 11:32
DX: K52.9 Noninfective gastroenteritis and colitis, unspecified (principal); R11.2 Nausea with vomiting, unspecified; R10.84 Generalized abdominal pain; R53.1 Weakness; E10.9 Type 1 diabetes mellitus without complications; I10 Essential (primary) hypertension; Z79.4 Long term (current) use of insulin; Z79.899 Other long term (current) drug therapy; Z28.310 Unvaccinated for COVID-19
CPT/HCPCS: 36000; 36415; 80053; 81001; 82947; 83605; 83690; 85025; 96360; 96361; 96374; 96375; 99284; J2405

== ENCOUNTER 2022-09-25 07:31 | Emergency (ER) | payer BC, OTHER ==
[2022-09-25] MEDS ORDERED: TRUVADA 200 MG-300 MG TABLET PO ONE (07:32)
[2022-09-25] MEDS ORDERED: ISENTRESS PO ONE (07:32)
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
[2022-09-25] MEDS ORDERED: TRUVADA 200 MG-300 MG TABLET PO STA (08:08)
[2022-09-25] MEDS ORDERED: ISENTRESS PO SCH ×2 (08:15→10:00)
[2022-09-25] MEDS ORDERED: Nabi-Hb 5 ML IM ONE (08:16)
[2022-09-25] MEDS ORDERED: Adacel Vial IM ONE ×2 (08:16→08:22)
[2022-09-25] MEDS ORDERED: ENGERIX-B 10 MCG PED: INSURANCE IM ONE ×2 (08:16→08:34)
[2022-09-25] MEDS ORDERED: TRUVADA 200 MG-300 MG TABLET PO SCH (10:00)
[2022-09-25 10:07] VITALS: BP 140/87; PULSE 108; O2SAT 97
[2022-09-25 10:45] LABS: HIV 1/2 ANTIBODY PRESUMPTIVE NEGATIVE (NEGATIVE); HIV p24 AG - SOURCE ONLY PRESUMPTIVE NEGATIVE (NEGATIVE)
[2022-09-27 08:08] LABS: HBsAg Screen Negative (Negative); HIV Screen 4th Generation wRfx Non Reactive (Non Reactive); Hep B Surface Ab, Quant 9.4 mIU/mL (Immunity>9.9); Hep C Virus Ab Non Reactive (Non Reactive)
== END 2022-09-25 10:06 | disposition home or self-care (01) ==
LOC: ED 07:31
DX: S61.032A Puncture wound without foreign body of left thumb without damage to nail, initial encounter (principal); W27.3XXA Contact with needle (sewing), initial encounter; Y92.149 Unspecified place in prison as the place of occurrence of the external cause; Y99.0 Civilian activity done for income or pay; Z20.6 Contact with and (suspected) exposure to human immunodeficiency virus [HIV]; Z20.5 Contact with and (suspected) exposure to viral hepatitis; I10 Essential (primary) hypertension; E10.9 Type 1 diabetes mellitus without complications; Z79.4 Long term (current) use of insulin; Z79.899 Other long term (current) drug therapy; Z28.310 Unvaccinated for COVID-19
CPT/HCPCS: 36415; 86317; 86689; 87340; 87389; 90471; 96372; 99283; G0472; 86803; 90715; 90744; J1571; A9270-GY

== ENCOUNTER 2024-01-19 20:20 | Emergency (ER) | payer BC, OTHER ==
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
[2024-01-19 20:36] VITALS: TEMP 98.7; O2SAT 97
[2024-01-19] MEDS ORDERED: DELTASONE 20 MG ONE (21:17)
[2024-01-19] MEDS ORDERED: BENADRYL 25 MG CAPSULE ONE (21:17)
[2024-01-19] MEDS ORDERED: Pepcid 20 MG ONE (21:17)
[2024-01-19] MEDS: Pepcid 20 MG PO ONE (21:20)
[2024-01-19] MEDS: DELTASONE 20 MG PO ONE (21:20)
[2024-01-19] MEDS: BENADRYL 25 MG CAPSULE PO ONE (21:20)
[2024-01-19 21:36] VITALS: BP 140/81; PULSE 93; RESP 18
== END 2024-01-19 21:36 | disposition home or self-care (01) ==
LOC: ED 20:20
DX: L25.5 Unspecified contact dermatitis due to plants, except food (principal)
CPT/HCPCS: 99282; A9270-GY

== ENCOUNTER 2024-04-21 23:31 | Emergency (ER) | payer OTHER ==
[2024-04-21 23:45] VITALS: RESP 18; TEMP 97.3
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
[2024-04-22 00:32] VITALS: BP 139/100; PULSE 84; O2SAT 94
--- NOTE | 2024-04-22 08:37 | XRAY ---
Indication: Pain and swelling. Comparison: None 3 view right wrist demonstrates radiocarpal joint space narrowing, mild scattered vascular calcifications, and posterior soft tissue swelling. No other bony, articular, or soft tissue abnormalities.
== END 2024-04-22 00:37 | disposition home or self-care (01) ==
LOC: ED 23:31
DX: S63.501A Unspecified sprain of right wrist, initial encounter (principal); X50.0XXA Overexertion from strenuous movement or load, initial encounter; Y93.K9 Activity, other involving animal care; I10 Essential (primary) hypertension; E10.9 Type 1 diabetes mellitus without complications; Z79.899 Other long term (current) drug therapy
CPT/HCPCS: 73110; 99283; L3908

== ENCOUNTER 2024-07-10 23:55 | Emergency (ER) | payer OTHER ==
[2024-07-11 00:15] VITALS: RESP 18; TEMP 97.7; O2SAT 95
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
[2024-07-11 00:32] VITALS: BP 139/91; PULSE 84
== END 2024-07-11 00:35 | disposition home or self-care (01) ==
LOC: ED 23:55
DX: S61.012A Laceration without foreign body of left thumb without damage to nail, initial encounter (principal); W26.0XXA Contact with knife, initial encounter
CPT/HCPCS: 12001; 99281; 99283

== ENCOUNTER 2024-12-03 14:01 | Observation (INO) | payer OTHER ==
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
[2024-12-03 14:28] LABS: Absolute Neutrophil Ct (ANC) 10.16 x10^3/uL (1.78-5.38); BASOPHIL % 0.2 % (0.2-1.2); Basophil (Absolute #) 0.03 x10^3/uL (0.01-0.08); Eosinophil % 0.3 % (0.8-7.0); Eosinophil (Absolute #) 0.04 x10^3/uL (0.04-0.54); Hematocrit 43.3 % (40.1-51.0); Hemoglobin 14.9 g/dL (13.7-17.5); IMMATURE GRAN # 0.05 x10^3u/L (0.001-0.031); IMMATURE GRAN % 0.4 % (0.001-0.429); Lymphocyte (Absolute #) 1.74 x10^3/uL (1.32-3.57); Lymphocytes % 13.7 % (21.8-53.1); Mean Cell Volume 81.2 fL (79.0-92.2); Mean Corpuscular Hgb Concent. 34.4 g/dL (32.3-36.5); Mean Platelet Volume 9.1 fL (9.4-12.4); Monocyte (Absolute #) 0.67 x10^3/uL (0.30-0.82); Monocytes % 5.3 % (5.3-12.2); Neutrophil % 80.1 % (34.0-67.9); Platelet Count 332 x10^3/uL (163-337); Red Blood Count 5.33 x10^6/uL (4.63-6.08); Red Cell Distribution Width 13.1 % (11.6-14.4); White Blood Count 12.7 x10^3/uL (4.23-9.07)
[2024-12-03] MEDS ORDERED: Sodium Chloride 0.9% 1000 ML 1,000 ML ONE (14:30)
[2024-12-03 14:39] LABS: VBG BASE EXCESS 3.6 (-2.0-2.0); VBG CARBOXYHEMOGLOBIN 3.6 % T HGB (0.0-6.9); VBG HCO3- 28.5 meq/L (22-28); VBG HEMOGLOBIN 15.8; VBG POTASSIUM 3.7 (3.5-5.1); VBG pH 7.43 (7.32-7.42)
[2024-12-03 14:42] LABS: ACETAMINOPHEN < 10 ug/ml (10-30); ALBUMIN 4.4 g/dL (3.5-5.0); ALKALINE PHOSPHATASE 65 U/L (38-126); ANION GAP 14.9 MEQ/L (5-15); BLOOD UREA NITROGEN 12 mg/dL (9-20); CHLORIDE 103 mmol/L (98-107); Calcium 9.9 mg/dL (8.4-10.2); Carbon Dioxide 26 mmol/L (22-30); Creatinine 1 0.87 mg/dL (0.66-1.25); EST GLOMERULAR FILTRATION RATE 120.5 ML/MIN; ETHYL ALCOHOL < 10 mg/dL (0-10); Glucose 135 mg/dL (74-106); Potassium 3.7 mmol/L (3.5-5.1); SALICYLATE < 1.0 mg/dL (2-20); SGOT/AST 20 U/L (17-59); SGPT/ALT 16 U/L (0-50); SODIUM 140 mmol/L (135-145); Total Protein 7.2 g/dL (6.3-8.2)
[2024-12-03] MEDS: Sodium Chloride 0.9% 1000 ML 1,000 ML IV SCH (14:44)
[2024-12-03] MEDS ORDERED: Zofran 4 MG/2 ML VIAL ONE (14:58)
[2024-12-03] MEDS: Zofran 4 MG/2 ML VIAL IV ONE (15:02)
--- NOTE | 2024-12-03 15:52 | XRAY ---
Indication: Pain. Low blood sugar. Multiple contiguous axial images obtained through the head without contrast. Comparison: June 25, 2021 Normal appearing brain parenchyma, ventricles, and bony calvarium. Visualized paranasal sinuses and mastoid air cells are clear. Impression: Continued normal CT head without contrast exam.
--- NOTE | 2024-12-03 15:56 | XRAY ---
Indication: Pain. Low blood sugar. Multiple contiguous axial images obtained through the cervical spine. Sagittal and coronal reformatted images obtained. Comparison: October 17, 2016 Normal bones, articulation, and visualized noncontrasted soft tissues. Sagittal and coronal reformatted images again demonstrates normal alignment with vertebral body heights/disc spaces maintained. Lung apices clear. Impression: Continued normal CT cervical spine.
[2024-12-03] MEDS ORDERED: BENADRYL 50 MG/ML ONE (16:24)
[2024-12-03] MEDS ORDERED: Compazine 10 MG/2 ML ONE (16:24)
[2024-12-03] MEDS ORDERED: TYLENOL 325 MG ONE (16:24)
[2024-12-03] MEDS ORDERED: TORAdol 30 mg Injection ONE (16:24)
[2024-12-03] MEDS: TORAdol 30 mg Injection IV ONE (16:37)
[2024-12-03] MEDS: BENADRYL 50 MG/ML IV ONE (16:39)
[2024-12-03] MEDS: Compazine 10 MG/2 ML IV ONE (16:41)
[2024-12-03] MEDS: TYLENOL 325 MG PO ONE (17:19)
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
[2024-12-03] MEDS ORDERED: D50W 50 ml Abboject IV PRN (18:27)
[2024-12-03] MEDS ORDERED: Glutose 15 GM ORAL GEL PO PRN (18:27)
[2024-12-03] MEDS ORDERED: Zofran 4 MG/2 ML VIAL IV PRN (18:27)
[2024-12-03] MEDS ORDERED: GlucaGen 1 MG IM PRN (18:27)
[2024-12-03] MEDS: HUMALOG SQ PRN (22:58)
[2024-12-04 00:21] LABS: Appearance Clear (Clear); Bacteria None Seen /HPF (None Seen); Bilirubin Negative (Negative); Blood Negative (Negative); Epithelial Cells None Seen /HPF (None Seen); Glucose, Urine >=1000 mg/dL (Negative); Hyaline Casts NONE SEEN /LPF (0-2); Ketones Negative (Negative); Leukocyte Esterase Negative (Negative); Nitrite Negative (Negative); Ph 5.5 (4.6-8.0); Protein,Urine Dip Trace (Negative); RBC 0-2 /HPF (0-5); Specific Gravity 1.025 (1.005-1.030); Urobilinogen 0.2 mg/dL (0.2); WBC 0-2 /HPF (0-5)
[2024-12-04 00:33] LABS: Amphetamine,Urine NEGATIVE (NEGATIVE); Barbiturate,Urine NEGATIVE (NEGATIVE); Benzodiazepine,Urine NEGATIVE (NEGATIVE); Cocaine,Urine NEGATIVE (NEGATIVE); Methadone,Urine NEGATIVE (NEGATIVE); Opiate,Urine NEGATIVE (NEGATIVE); PCP,Urine NEGATIVE (NEGATIVE); THC,Urine NEGATIVE (NEGATIVE)
[2024-12-04 04:56] LABS: Absolute Neutrophil Ct (ANC) 5.28 x10^3/uL (1.78-5.38); BASOPHIL % 0.2 % (0.2-1.2); Basophil (Absolute #) 0.02 x10^3/uL (0.01-0.08); Eosinophil % 0.7 % (0.8-7.0); Eosinophil (Absolute #) 0.06 x10^3/uL (0.04-0.54); Hematocrit 41.3 % (40.1-51.0); Hemoglobin 13.9 g/dL (13.7-17.5); IMMATURE GRAN # 0.02 x10^3u/L (0.001-0.031); IMMATURE GRAN % 0.2 % (0.001-0.429); Lymphocyte (Absolute #) 2.78 x10^3/uL (1.32-3.57); Lymphocytes % 31.9 % (21.8-53.1); Mean Cell Volume 81.6 fL (79.0-92.2); Mean Corpuscular Hemoglobin 27.5 pg (25.7-32.2); Mean Corpuscular Hgb Concent. 33.7 g/dL (32.3-36.5); Mean Platelet Volume 9.6 fL (9.4-12.4); Monocyte (Absolute #) 0.55 x10^3/uL (0.30-0.82); Monocytes % 6.3 % (5.3-12.2); Neutrophil % 60.7 % (34.0-67.9); Platelet Count 326 x10^3/uL (163-337); Red Blood Count 5.06 x10^6/uL (4.63-6.08); Red Cell Distribution Width 13.2 % (11.6-14.4); White Blood Count 8.7 x10^3/uL (4.23-9.07)
--- NOTE | 2024-12-04 05:12 | PCM.NOTE ---
Date and Time: 12/04/24510 Subjective Assessment: is a 28 year old male is a 28-year-old male with a complex medical history including type 1 diabetes mellitus diagnosed in 2004, hypertension, depression, and anxiety, who presented to the emergency department on 12/03/24 via EMS after experiencing an apparent hypoglycemic event at home. The patient does not recall any preceding symptoms or events. The history was obtained primarily from his significant other, who reported that the patient was found unresponsive, snoring abnormally, and unarousable, prompting her to call EMS. On EMS arrival, the patient's blood glucose was noted at 84 mg/dL, and he was empirically treated with an ampule of dextrose 50%, with improvement in mental status. On ED arrival, the patient's vital signs were stable. Imaging including CT head and CT cervical spine revealed no acute pathology. Blood glucose level now stable at 130 and patient now at baseline mentation and endorsing minor headache. Laboratory evaluation was notable for leukocytosis with a WBC count of 12.7 x10^3/uL, which may represent a reactive process secondary to physiologic stress. The patient endorsed significant noncompliance with diabetes management, stating that he does not check his blood glucose levels at home, lacks a glucometer, and manages his diabetes solely with [id number] Novolin N without medical supervision. He does not use any rapid-acting insulin. The patient has no established endocrinology follow-up, having last seen an research spec several years ago. He is amenable to re-engagement with endocrinology services and acknowledges the need for improved diabetes self- care. Given his presentation and significant gaps in self-care, he was admitted for observation, stabilization, initiation of appropriate insulin therapy, diabetes education, and care coordination. Objective Data Vital Signs: Vital Signs - 24 hr Temp Pulse Resp BP BP Pulse Ox 12/04/24 04:00 98.5 F 78 17 124/65 95 12/04/24 00:00 97.9 F 81 17 114/71 97 12/03/24 20:00 97.9 F 87 18 125/73 97 12/03/24 17:54 97.5 F 87 20 143/95 93 L 12/03/24 17:37 95 12/03/24 14:20 96.2 F 83 12 142/98 95 12/03/24 14:02 78 12 142/98 95 Pain Assessment - Last Documented Pain Intensity 0 Pain Scale Used 0-10 Pain Scale Intake and Output: Intake & Output 12/01/24 12/02/24 12/03/24 12/04/24 11:59 11:59 11:59 11:59 Intake Total 0 Balance 0 Weight 100.9 kg Lab Results: Lab Results-Last 24 Hours 12/03/24 12/03/24 12/03/24 Range/Units 00:10 00:10 14:24 WBC (4.23-9.07) x10^3/uL RBC (4.63-6.08) x10^6/uL Hgb (13.7-17.5) g/dL Hct (40.1-51.0) % MCV (79.0-92.2) fL MCH (25.7-32.2) pg MCHC (32.3-36.5) g/dL RDW (11.6-14.4) % Plt Count (163-337) x10^3/uL MPV (9.4-12.4) fL Gran % (34.0-67.9) % Immature Gran % (Auto) (0.001-0.429) % Nucleat RBC Rel Count (0.00-0.2) % Eos # (Auto) (0.04-0.54) x10^3/uL Immature Gran # (Auto) (0.001-0.031) x10^3u/L Absolute Lymphs (auto) (1.32-3.57) x10^3/uL Absolute Monos (auto) (0.30-0.82) x10^3/uL Absolute Nucleated RBC (0.00-0.012) x10^3u/L Lymphocytes % (21.8-53.1) % Monocytes % (5.3-12.2) % Eosinophils % (0.8-7.0) % Basophils % (0.2-1.2) % Absolute Granulocytes (1.78-5.38) x10^3/uL Basophils # (0.01-0.08) x10^3/uL pO2/FiO2 Ratio % VBG pH (7.32-7.42) VBG pCO2 at Pat Temp (42-55) mm/Hg VBG pO2 at Pat Temp (25-40) mm/Hg VBG HCO3 (22-28) meq/L VBG O2 Sat (Bhavik) (95-100) VBG Base Excess (-2.0-2.0) VBG Hemoglobin VBG Carboxyhemoglobin (0.0-6.9) % T HGB POC Potassium (3.5-5.1) Sodium (135-145) mmol/L Potassium (3.5-5.1) mmol/L Chloride (98-107) mmol/L Carbon Dioxide (22-30) mmol/L Anion Gap (5-15) MEQ/L BUN (9-20) mg/dL Creatinine (0.66-1.25) mg/dL Estimated GFR ML/MIN Glucose (74-106) mg/dL POC Glucometer (74 to 106) mg/dL Lactic Acid 1.3 (0.4-2.0) Calcium (8.4-10.2) mg/dL Total Bilirubin (0.2-1.3) mg/dL AST (17-59) U/L ALT (0-50) U/L Alkaline Phosphatase (38-126) U/L Troponin I (0.000-0.033) ng/mL Serum Total Protein (6.3-8.2) g/dL Albumin (3.5-5.0) g/dL Urine Color Yellow (Yellow) Urine Appearance Clear (Clear) Urine pH 5.5 (4.6-8.0) Ur Specific [place] 1.025 (1.005-1.030) Urine Protein Trace A (Negative) Urine Glucose (UA) >=1000 A (Negative) mg/dL Urine Ketones Negative (Negative) Urine Blood Negative (Negative) Urine Nitrite Negative (Negative) Urine Bilirubin Negative (Negative) Urine Urobilinogen 0.2 (0.2) mg/dL Ur Leukocyte Esterase Negative (Negative) U Hyaline Cast (Auto) NONE SEEN (0-2) /LPF Urine Microscopic RBC 0-2 (0-5) /HPF Urine Microscopic WBC 0-2 (0-5) /HPF Ur Epithelial Cells None Seen (None Seen) /HPF Urine Bacteria None Seen (None Seen) /HPF Urine Culture Reflexed NO (NO) Salicylates (2-20) mg/dL Urine Opiates Level NEGATIVE (NEGATIVE) Ur Methadone NEGATIVE (NEGATIVE) Acetaminophen (10-30) ug/ml Urine Barbiturates NEGATIVE (NEGATIVE) Ur Phencyclidine (PCP) NEGATIVE (NEGATIVE) Urine Amphetamine NEGATIVE (NEGATIVE) U Benzodiazepine Level NEGATIVE (NEGATIVE) Urine Cocaine NEGATIVE (NEGATIVE) Urine Marijuana (THC) NEGATIVE (NEGATIVE) Ethyl Alcohol (0-10) mg/dL 12/03/24 12/03/24 12/03/24 Range/Units 14:24 14:25 14:25 WBC 12.7 H (4.23-9.07) x10^3/uL RBC 5.33 (4.63-6.08) x10^6/uL Hgb 14.9 (13.7-17.5) g/dL Hct 43.3 (40.1-51.0) % MCV 81.2 (79.0-92.2) fL MCH 28.0 (25.7-32.2) pg MCHC 34.4 (32.3-36.5) g/dL RDW 13.1 (11.6-14.4) % Plt Count 332 (163-337) x10^3/uL MPV 9.1 L (9.4-12.4) fL Gran % 80.1 H (34.0-67.9) % Immature Gran % (Auto) 0.4 (0.001-0.429) % Nucleat RBC Rel Count 0.0 (0.00-0.2) % Eos # (Auto) 0.04 (0.04-0.54) x10^3/uL Immature Gran # (Auto) 0.05 H (0.001-0.031) x10^3u/L Absolute Lymphs (auto) 1.74 (1.32-3.57) x10^3/uL Absolute Monos (auto) 0.67 (0.30-0.82) x10^3/uL Absolute Nucleated RBC 0.00 (0.00-0.012) x10^3u/L Lymphocytes % 13.7 L (21.8-53.1) % Monocytes % 5.3 (5.3-12.2) % Eosinophils % 0.3 L (0.8-7.0) % Basophils % 0.2 (0.2-1.2) % Absolute Granulocytes 10.16 H (1.78-5.38) x10^3/uL Basophils # 0.03 (0.01-0.08) x10^3/uL pO2/FiO2 Ratio 21.0 % VBG pH 7.43 H (7.32-7.42) VBG pCO2 at Pat Temp 43 (42-55) mm/Hg VBG pO2 at Pat Temp 60 H (25-40) mm/Hg VBG HCO3 28.5 H (22-28) meq/L VBG O2 Sat (Bhavik) 92.0 L (95-100) VBG Base Excess 3.6 H (-2.0-2.0) VBG Hemoglobin 15.8 VBG Carboxyhemoglobin 3.6 (0.0-6.9) % T HGB POC Potassium 3.7 (3.5-5.1) Sodium 140 (135-145) mmol/L Potassium 3.7 (3.5-5.1) mmol/L Chloride 103 (98-107) mmol/L Carbon Dioxide 26 (22-30) mmol/L Anion Gap 14.9 (5-15) MEQ/L BUN 12 (9-20) mg/dL Creatinine 0.87 (0.66-1.25) mg/dL Estimated GFR 120.5 ML/MIN Glucose 135 H (74-106) mg/dL POC Glucometer (74 to 106) mg/dL Lactic Acid (0.4-2.0) Calcium 9.9 (8.4-10.2) mg/dL Total Bilirubin 0.30 (0.2-1.3) mg/dL AST 20 (17-59) U/L ALT 16 (0-50) U/L Alkaline Phosphatase 65 (38-126) U/L Troponin I (0.000-0.033) ng/mL Serum Total Protein 7.2 (6.3-8.2) g/dL Albumin 4.4 (3.5-5.0) g/dL Urine Color (Yellow) Urine Appearance (Clear) Urine pH (4.6-8.0) Ur Specific [place] (1.005-1.030) Urine Protein (Negative) Urine Glucose (UA) (Negative) mg/dL Urine Ketones (Negative) Urine Blood (Negative) Urine Nitrite (Negative) Urine Bilirubin (Negative) Urine Urobilinogen (0.2) mg/dL Ur Leukocyte Esterase (Negative) U Hyaline Cast (Auto) (0-2) /LPF Urine Microscopic RBC (0-5) /HPF Urine Microscopic WBC (0-5) /HPF Ur Epithelial Cells (None Seen) /HPF Urine Bacteria (None Seen) /HPF Urine Culture Reflexed (NO) Salicylates < 1.0 L (2-20) mg/dL Urine Opiates Level (NEGATIVE) Ur Methadone (NEGATIVE) Acetaminophen < 10 L (10-30) ug/ml Urine Barbiturates (NEGATIVE) Ur Phencyclidine (PCP) (NEGATIVE) Urine Amphetamine (NEGATIVE) U Benzodiazepine Level (NEGATIVE) Urine Cocaine (NEGATIVE) Urine Marijuana (THC) (NEGATIVE) Ethyl Alcohol < 10 (0-10) mg/dL 12/03/24 12/03/24 12/03/24 Range/Units 14:25 15:04 16:13 WBC (4.23-9.07) x10^3/uL RBC (4.63-6.08) x10^6/uL Hgb (13.7-17.5) g/dL Hct (40.1-51.0) % MCV (79.0-92.2) fL MCH (25.7-32.2) pg MCHC (32.3-36.5) g/dL RDW (11.6-14.4) % Plt Count (163-337) x10^3/uL MPV (9.4-12.4) fL Gran % (34.0-67.9) % Immature Gran % (Auto) (0.001-0.429) % Nucleat RBC Rel Count (0.00-0.2) % Eos # (Auto) (0.04-0.54) x10^3/uL Immature Gran # (Auto) (0.001-0.031) x10^3u/L Absolute Lymphs (auto) (1.32-3.57) x10^3/uL Absolute Monos (auto) (0.30-0.82) x10^3/uL Absolute Nucleated RBC (0.00-0.012) x10^3u/L Lymphocytes % (21.8-53.1) % Monocytes % (5.3-12.2) % Eosinophils % (0.8-7.0) % Basophils % (0.2-1.2) % Absolute Granulocytes (1.78-5.38) x10^3/uL Basophils # (0.01-0.08) x10^3/uL pO2/FiO2 Ratio % VBG pH (7.32-7.42) VBG pCO2 at Pat Temp (42-55) mm/Hg VBG pO2 at Pat Temp (25-40) mm/Hg VBG HCO3 (22-28) meq/L VBG O2 Sat (Bhavik) (95-100) VBG Base Excess (-2.0-2.0) VBG Hemoglobin VBG Carboxyhemoglobin (0.0-6.9) % T HGB POC Potassium (3.5-5.1) Sodium (135-145) mmol/L Potassium (3.5-5.1) mmol/L Chloride (98-107) mmol/L Carbon Dioxide (22-30) mmol/L Anion Gap (5-15) MEQ/L BUN (9-20) mg/dL Creatinine (0.66-1.25) mg/dL Estimated GFR ML/MIN Glucose (74-106) mg/dL POC Glucometer 122 H 118 H (74 to 106) mg/dL Lactic Acid (0.4-2.0) Calcium (8.4-10.2) mg/dL Total Bilirubin (0.2-1.3) mg/dL AST (17-59) U/L ALT (0-50) U/L Alkaline Phosphatase (38-126) U/L Troponin I < 0.012 (0.000-0.033) ng/mL Serum Total Protein (6.3-8.2) g/dL Albumin (3.5-5.0) g/dL Urine Color (Yellow) Urine Appearance (Clear) Urine pH (4.6-8.0) Ur Specific [place] (1.005-1.030) Urine Protein (Negative) Urine Glucose (UA) (Negative) mg/dL Urine Ketones (Negative) Urine Blood (Negative) Urine Nitrite (Negative) Urine Bilirubin (Negative) Urine Urobilinogen (0.2) mg/dL Ur Leukocyte Esterase (Negative) U Hyaline Cast (Auto) (0-2) /LPF Urine Microscopic RBC (0-5) /HPF Urine Microscopic WBC (0-5) /HPF Ur Epithelial Cells (None Seen) /HPF Urine Bacteria (None Seen) /HPF Urine Culture Reflexed (NO) Salicylates (2-20) mg/dL Urine Opiates Level (NEGATIVE) Ur Methadone (NEGATIVE) Acetaminophen (10-30) ug/ml Urine Barbiturates (NEGATIVE) Ur Phencyclidine (PCP) (NEGATIVE) Urine Amphetamine (NEGATIVE) U Benzodiazepine Level (NEGATIVE) Urine Cocaine (NEGATIVE) Urine Marijuana (THC) (NEGATIVE) Ethyl Alcohol (0-10) mg/dL 12/03/24 12/03/24 12/03/24 Range/Units 17:45 18:38 20:59 WBC (4.23-9.07) x10^3/uL RBC (4.63-6.08) x10^6/uL Hgb (13.7-17.5) g/dL Hct (40.1-51.0) % MCV (79.0-92.2) fL MCH (25.7-32.2) pg MCHC (32.3-36.5) g/dL RDW (11.6-14.4) % Plt Count (163-337) x10^3/uL MPV (9.4-12.4) fL Gran % (34.0-67.9) % Immature Gran % (Auto) (0.001-0.429) % Nucleat RBC Rel Count (0.00-0.2) % Eos # (Auto) (0.04-0.54) x10^3/uL Immature Gran # (Auto) (0.001-0.031) x10^3u/L Absolute Lymphs (auto) (1.32-3.57) x10^3/uL Absolute Monos (auto) (0.30-0.82) x10^3/uL Absolute Nucleated RBC (0.00-0.012) x10^3u/L Lymphocytes % (21.8-53.1) % Monocytes % (5.3-12.2) % Eosinophils % (0.8-7.0) % Basophils % (0.2-1.2) % Absolute Granulocytes (1.78-5.38) x10^3/uL Basophils # (0.01-0.08) x10^3/uL pO2/FiO2 Ratio % VBG pH (7.32-7.42) VBG pCO2 at Pat Temp (42-55) mm/Hg VBG pO2 at Pat Temp (25-40) mm/Hg VBG HCO3 (22-28) meq/L VBG O2 Sat (Bhavik) (95-100) VBG Base Excess (-2.0-2.0) VBG Hemoglobin VBG Carboxyhemoglobin (0.0-6.9) % T HGB POC Potassium (3.5-5.1) Sodium (135-145) mmol/L Potassium (3.5-5.1) mmol/L Chloride (98-107) mmol/L Carbon Dioxide (22-30) mmol/L Anion Gap (5-15) MEQ/L BUN (9-20) mg/dL Creatinine (0.66-1.25) mg/dL Estimated GFR ML/MIN Glucose (74-106) mg/dL POC Glucometer 130 H 233 H (74 to 106) mg/dL Lactic Acid (0.4-2.0) Calcium (8.4-10.2) mg/dL Total Bilirubin (0.2-1.3) mg/dL AST (17-59) U/L ALT (0-50) U/L Alkaline Phosphatase (38-126) U/L Troponin I < 0.012 (0.000-0.033) ng/mL Serum Total Protein (6.3-8.2) g/dL Albumin (3.5-5.0) g/dL Urine Color (Yellow) Urine Appearance (Clear) Urine pH (4.6-8.0) Ur Specific [place] (1.005-1.030) Urine Protein (Negative) Urine Glucose (UA) (Negative) mg/dL Urine Ketones (Negative) Urine Blood (Negative) Urine Nitrite (Negative) Urine Bilirubin (Negative) Urine Urobilinogen (0.2) mg/dL Ur Leukocyte Esterase (Negative) U Hyaline Cast (Auto) (0-2) /LPF Urine Microscopic RBC (0-5) /HPF Urine Microscopic WBC (0-5) /HPF Ur Epithelial Cells (None Seen) /HPF Urine Bacteria (None Seen) /HPF Urine Culture Reflexed (NO) Salicylates (2-20) mg/dL Urine Opiates Level (NEGATIVE) Ur Methadone (NEGATIVE) Acetaminophen (10-30) ug/ml Urine Barbiturates (NEGATIVE) Ur Phencyclidine (PCP) (NEGATIVE) Urine Amphetamine (NEGATIVE) U Benzodiazepine Level (NEGATIVE) Urine Cocaine (NEGATIVE) Urine Marijuana (THC) (NEGATIVE) Ethyl Alcohol (0-10) mg/dL 12/03/24 12/04/24 12/04/24 Range/Units 22:10 00:17 03:37 WBC (4.23-9.07) x10^3/uL RBC (4.63-6.08) x10^6/uL Hgb (13.7-17.5) g/dL Hct (40.1-51.0) % MCV (79.0-92.2) fL MCH (25.7-32.2) pg MCHC (32.3-36.5) g/dL RDW (11.6-14.4) % Plt Count (163-337) x10^3/uL MPV (9.4-12.4) fL Gran % (34.0-67.9) % Immature Gran % (Auto) (0.001-0.429) % Nucleat RBC Rel Count (0.00-0.2) % Eos # (Auto) (0.04-0.54) x10^3/uL Immature Gran # (Auto) (0.001-0.031) x10^3u/L Absolute Lymphs (auto) (1.32-3.57) x10^3/uL Absolute Monos (auto) (0.30-0.82) x10^3/uL Absolute Nucleated RBC (0.00-0.012) x10^3u/L Lymphocytes % (21.8-53.1) % Monocytes % (5.3-12.2) % Eosinophils % (0.8-7.0) % Basophils % (0.2-1.2) % Absolute Granulocytes (1.78-5.38) x10^3/uL Basophils # (0.01-0.08) x10^3/uL pO2/FiO2 Ratio % VBG pH (7.32-7.42) VBG pCO2 at Pat Temp (42-55) mm/Hg VBG pO2 at Pat Temp (25-40) mm/Hg VBG HCO3 (22-28) meq/L VBG O2 Sat (Bhavik) (95-100) VBG Base Excess (-2.0-2.0) VBG Hemoglobin VBG Carboxyhemoglobin (0.0-6.9) % T HGB POC Potassium (3.5-5.1) Sodium (135-145) mmol/L Potassium (3.5-5.1) mmol/L Chloride (98-107) mmol/L Carbon Dioxide (22-30) mmol/L Anion Gap (5-15) MEQ/L BUN (9-20) mg/dL Creatinine (0.66-1.25) mg/dL Estimated GFR ML/MIN Glucose (74-106) mg/dL POC Glucometer 300 H 268 H (74 to 106) mg/dL Lactic Acid (0.4-2.0) Calcium (8.4-10.2) mg/dL Total Bilirubin (0.2-1.3) mg/dL AST (17-59) U/L ALT (0-50) U/L Alkaline Phosphatase (38-126) U/L Troponin I < 0.012 (0.000-0.033) ng/mL Serum Total Protein (6.3-8.2) g/dL Albumin (3.5-5.0) g/dL Urine Color (Yellow) Urine Appearance (Clear) Urine pH (4.6-8.0) Ur Specific [place] (1.005-1.030) Urine Protein (Negative) Urine Glucose (UA) (Negative) mg/dL Urine Ketones (Negative) Urine Blood (Negative) Urine Nitrite (Negative) Urine Bilirubin (Negative) Urine Urobilinogen (0.2) mg/dL Ur Leukocyte Esterase (Negative) U Hyaline Cast (Auto) (0-2) /LPF Urine Microscopic RBC (0-5) /HPF Urine Microscopic WBC (0-5) /HPF Ur Epithelial Cells (None Seen) /HPF Urine Bacteria (None Seen) /HPF Urine Culture Reflexed (NO) Salicylates (2-20) mg/dL Urine Opiates Level (NEGATIVE) Ur Methadone (NEGATIVE) Acetaminophen (10-30) ug/ml Urine Barbiturates (NEGATIVE) Ur Phencyclidine (PCP) (NEGATIVE) Urine Amphetamine (NEGATIVE) U Benzodiazepine Level (NEGATIVE) Urine Cocaine (NEGATIVE) Urine Marijuana (THC) (NEGATIVE) Ethyl Alcohol (0-10) mg/dL Radiology Exams: Radiology Procedures Category Date Time Status CERVICAL SPINE WO CONTRAST [CT] Stat Exams 12/03/24 14:15 Completed HEAD WITHOUT CONTRAST [CT] Stat Exams 12/03/24 14:15 Completed Medications: Medications Generic Name Dose Route Start Last Admin Trade Name Balaji PRN Reason Stop Dose Admin Acetaminophen 650 mg 12/03/24 18:27 Acetaminophen 325 Mg Tablet PO 01/02/25 18:26 Q4H PRN PRN PAIN, FEVER, HEADACHE Dextrose 25 ml 12/03/24 18:27 Dextrose 50%-Water 50 Ml Abboject IV 01/02/25 18:26 PRN PRN HYPOGLYCEMIA Glucagon 1 mg 12/03/24 18:27 Glucagon 1 Mg/Vial Vial IM 01/02/25 18:26 PRN PRN HYPOGLYCEMIA Glucose 15 gm 12/03/24 18:27 Dextrose 15 Gm Gel PO 01/02/25 18:26 PRN PRN HYPOGLYCEMIA Insulin Glargine 20 unit 12/04/24 08:00 Insulin Glargine 1 Unit SQ 01/03/25 07:59 AMINSULIN TANISHA Insulin Human Lispro 0 unit 12/03/24 18:27 12/04/24 04:06 Insulin Lispro 1 Unit SQ 01/02/25 18:26 4 unit UD PRN Administration HYPERGLYCEMIA Insulin Human Lispro 7 unit 12/04/24 08:00 Insulin Lispro 1 Unit SQ 01/03/25 07:59 TIDWM TANISHA Lisinopril 5 mg 12/04/24 10:00 Lisinopril 5 Mg Tablet PO 01/03/25 09:59 DAILY TANISHA Ondansetron HCl 4 mg 12/03/24 18:27 Ondansetron Hcl 4 Mg/2 Ml Vial IV 01/02/25 18:26 Q6H PRN PRN NAUSEA/VOMITING Discontinued Medications Generic Name Dose Route Start Last Admin Trade Name Balaji PRN Reason Stop Dose Admin Acetaminophen 975 mg 12/03/24 16:12 12/03/24 17:19 Acetaminophen 325 Mg Tablet PO 12/03/24 16:13 Not Given STAT ONE Acetaminophen Confirm 12/03/24 16:24 Acetaminophen 325 Mg Tablet Administered 12/03/24 16:25 Dose 975 mg .ROUTE .STK-MED ONE Diphenhydramine HCl 25 mg 12/03/24 16:14 12/03/24 16:39 Diphenhydramine Hcl 50 Mg/Ml Vial IV 12/03/24 16:15 25 mg STAT ONE Administration Diphenhydramine HCl Confirm 12/03/24 16:24 Diphenhydramine Hcl 50 Mg/Ml Vial Administered 12/03/24 16:25 Dose 50 mg .ROUTE .STK-MED ONE Sodium Chloride 1,000 mls @ 100 mls/hr 12/03/24 14:15 12/03/24 14:44 Sodium Chloride 0.9% 1000 Ml IV 01/02/25 14:14 100 mls/hr .Q10H TANISHA Administration Sodium Chloride Confirm 12/03/24 14:30 Sodium Chloride 0.9% 1000 Ml Administered 12/03/24 14:31 Dose 1,000 mls @ ud .ROUTE .STK-MED ONE Insulin Glargine 10 unit 12/04/24 10:00 Insulin Glargine 1 Unit SQ 01/03/25 09:59 QAM [facility] Insulin Human Lispro 5 unit 12/04/24 08:00 Insulin Lispro 1 Unit SQ 01/03/25 07:59 TIDWM [facility] Ketorolac Tromethamine 30 mg 12/03/24 16:12 12/03/24 16:37 Ketorolac Tromethamine 30 Mg/Ml Inj IV 12/03/24 16:13 30 mg STAT ONE Administration Ketorolac Tromethamine Confirm 12/03/24 16:24 Ketorolac Tromethamine 30 Mg/Ml Inj Administered 12/03/24 16:25 Dose 30 mg .ROUTE .STK-MED ONE Ondansetron HCl 4 mg 12/03/24 14:58 12/03/24 15:02 Ondansetron Hcl 4 Mg/2 Ml Vial IV 12/03/24 14:59 4 mg STAT ONE Administration Ondansetron HCl Confirm 12/03/24 14:58 Ondansetron Hcl 4 Mg/2 Ml Vial Administered 12/03/24 14:59 Dose 4 mg .ROUTE .STK-MED ONE Prochlorperazine Edisylate 10 mg 12/03/24 16:12 12/03/24 16:41 Prochlorperazine Edisylate 10 Mg/2 Ml Vial IV 12/03/24 16:13 10 mg STAT ONE Administration Prochlorperazine Edisylate Confirm 12/03/24 16:24 Prochlorperazine Edisylate 10 Mg/2 Ml Vial Administered 12/03/24 16:25 Dose 10 mg .ROUTE .STK-MED ONE Assessment/Plan (1) Hypoglycemia Current Visit: No Status: Acute Assessment & Plan: -likely secondary to insulin mismanagement and poor adherence to diabetes self- care -Monitor glucose q2h - Initiate appropriate basal-bolus insulin regimen using both long-acting and short-acting insulin under supervision with hypoglycemic protocol in place - Educate patient on signs and symptoms of hypoglycemia and appropriate correction methods -consider CGM -Patient needs PCP and endocrinology referral Code(s): E16.2 - HYPOGLYCEMIA, UNSPECIFIED (2) Diabetes mellitus type 1, uncontrolled, insulin dependent Current Visit: No Status: Chronic Assessment & Plan: -Inpatient diabetes education initiated - Provide glucometer, test strips, lancets, and insulin supplies with instruction - Involve case management for supply assistance - Arrange outpatient endocrinology follow-up upon discharge for long-term management -SSI - meal time insulin -glargine (start tomorrow) -A1c (3) Depression with anxiety Current Visit: Yes Status: Acute Assessment & Plan: -continue home regimen Code(s): F41.8 - OTHER SPECIFIED ANXIETY DISORDERS (4) Leukocytosis Current Visit: Yes Status: Acute Assessment & Plan: -Monitor clinically -No current evidence of infection; if febrile or if infectious symptoms develop, pursue further workup VTE: SCD Dispo: 1-2 days Code status: Full code Code(s): E16.2 - HYPOGLYCEMIA, UNSPECIFIED (2) Diabetes mellitus type 1, uncontrolled, insulin dependent Current Visit: No Status: Chronic (3) Depression with anxiety Current Visit: No Status: Acute Code(s): F41.8 - OTHER SPECIFIED ANXIETY DISORDERS (4) Leukocytosis Current Visit: No Status: Acute Code(s): D72.829 - ELEVATED WHITE BLOOD CELL COUNT, UNSPECIFIED
[2024-12-04 05:17] LABS: ALBUMIN 3.8 g/dL (3.5-5.0); ANION GAP 13.9 MEQ/L (5-15); BILIRUBIN,TOTAL 0.5 mg/dL (0.2-1.3); Calcium 9.3 mg/dL (8.4-10.2); EST GLOMERULAR FILTRATION RATE 105.1 ML/MIN; Potassium 4.5 mmol/L (3.5-5.1); Total Protein 6.1 g/dL (6.3-8.2)
[2024-12-04] MEDS ORDERED: HUMALOG SQ SCH (08:00)
[2024-12-04] MEDS: HUMALOG SQ SCH ×2 (08:33→12:06)
[2024-12-04] MEDS: Lantus Insulin SQ SCH (08:39)
[2024-12-04] MEDS: Zestril 5 MG PO SCH (09:09)
[2024-12-04] MEDS ORDERED: HUMULIN R SQ PRN (09:22)
[2024-12-04] MEDS ORDERED: Lantus Insulin SQ SCH (10:00)
--- NOTE | 2024-12-04 10:53 | PCM.DS ---
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 Barcenas is a 28-year-old male with a complex medical history of type 1 diabetes mellitus (diagnosed in 2004), hypertension, depression, and anxiety, who presented to the emergency department on 12/03/24 via EMS following an apparent hypoglycemic episode at home. The event was witnessed by his significant other, who reported that the patient was found unresponsive, snoring abnormally, and was unarousable. EMS recorded a blood glucose level of 84 mg/dL, and the patient was treated empirically with an ampule of dextrose 50%, resulting in rapid improvement of his mental status. Upon ED evaluation, he was alert, oriented, with stable vital signs, and reported a mild headache. CT imaging of the head and cervical spine showed no acute abnormalities. Laboratory workup revealed leukocytosis (WBC 12.7 x10^3/uL), which was attributed to stress-related physiological response in the absence of infectious signs or symptoms. Further history revealed significant nonadherence to diabetes management. The patient admitted to not checking blood sugars at home, lacking a glucometer, and using only [id number] Novolin N without any short-acting insulin or medical oversight. He denied any current endocrinology care and has been without formal diabetes management for several years. He was admitted for observation, stabilization, initiation of appropriate insulin therapy, diabetes education, and care coordination. A basal-bolus insulin regimen was initiated using glargine and correctional short-acting insulin, with glucose monitoring every two hours. Hypoglycemia protocol was instituted, and the patient was provided with comprehensive diabetes education, including instruction on the use of glucometers, insulin administration, and recognition and management of hypoglycemia. Case management facilitated the provision of necessary supplies, including glucometer, strips, lancets, glucagon, and pen needles. Given his financial limitations, he was agreeable to continue using NPH 70/30 with the understanding that this will be closely monitored in coordination with his newly arranged outpatient endocrinology follow-up. Leukocytosis resolved during admission, with no further infectious workup deemed necessary given clinical stability and lack of symptoms. The patient engaged well with the care team, acknowledged the importance of adherence, and expressed readiness for discharge with close outpatient follow-up arranged. Endocrinology appt is tomorrow 12/05/24. Patient requesting refill of lisinopril. Advised blood pressure log to take to follow up appt with new PCP. I spent 35 minutes [id number] with the patient on the day of discharge performing discharge exam, discussing hospital stay and discharge instructions with patient and caregivers, preparation of discharge records, prescriptions & referral forms and addressing any questions/concerns the patient had as documented above. - Vitals & Intake/Output Vital Signs: Vital Signs Temperature 97.5 F 12/04/24 08:00 Pulse Rate 73 12/04/24 08:00 Respiratory Rate 22 12/04/24 08:00 Blood Pressure 114/66 12/04/24 08:00 O2 Sat by Pulse Oximetry 94 L 12/04/24 08:00 Intake & Output: Intake & Output 12/01/24 12/02/24 12/03/24 12/04/24 11:59 11:59 11:59 11:59 Intake Total 360 Balance 360 Weight 100.9 kg - Lab Result Diagrams: 12/04/24 04:51 12/04/24 04:51 Lab Results-Last 24 Hrs: Lab Results-Last 24 Hours 12/03/24 12/03/24 12/03/24 Range/Units 00:10 00:10 14:24 WBC (4.23-9.07) x10^3/uL RBC (4.63-6.08) x10^6/uL Hgb (13.7-17.5) g/dL Hct (40.1-51.0) % MCV (79.0-92.2) fL MCH (25.7-32.2) pg MCHC (32.3-36.5) g/dL RDW (11.6-14.4) % Plt Count (163-337) x10^3/uL MPV (9.4-12.4) fL Gran % (34.0-67.9) % Immature Gran % (Auto) (0.001-0.429) % Nucleat RBC Rel Count (0.00-0.2) % Eos # (Auto) (0.04-0.54) x10^3/uL Immature Gran # (Auto) (0.001-0.031) x10^3u/L Absolute Lymphs (auto) (1.32-3.57) x10^3/uL Absolute Monos (auto) (0.30-0.82) x10^3/uL Absolute Nucleated RBC (0.00-0.012) x10^3u/L Lymphocytes % (21.8-53.1) % Monocytes % (5.3-12.2) % Eosinophils % (0.8-7.0) % Basophils % (0.2-1.2) % Absolute Granulocytes (1.78-5.38) x10^3/uL Basophils # (0.01-0.08) x10^3/uL pO2/FiO2 Ratio % VBG pH (7.32-7.42) VBG pCO2 at Pat Temp (42-55) mm/Hg VBG pO2 at Pat Temp (25-40) mm/Hg VBG HCO3 (22-28) meq/L VBG O2 Sat (Bhavik) (95-100) VBG Base Excess (-2.0-2.0) VBG Hemoglobin VBG Carboxyhemoglobin (0.0-6.9) % T HGB POC Potassium (3.5-5.1) Sodium (135-145) mmol/L Potassium (3.5-5.1) mmol/L Chloride (98-107) mmol/L Carbon Dioxide (22-30) mmol/L Anion Gap (5-15) MEQ/L BUN (9-20) mg/dL Creatinine (0.66-1.25) mg/dL Estimated GFR ML/MIN Glucose (74-106) mg/dL POC Glucometer (74 to 106) mg/dL Hemoglobin A1c (4.5-6.0) % Lactic Acid 1.3 (0.4-2.0) Calcium (8.4-10.2) mg/dL Total Bilirubin (0.2-1.3) mg/dL AST (17-59) U/L ALT (0-50) U/L Alkaline Phosphatase (38-126) U/L Troponin I (0.000-0.033) ng/mL Serum Total Protein (6.3-8.2) g/dL Albumin (3.5-5.0) g/dL Urine Color Yellow (Yellow) Urine Appearance Clear (Clear) Urine pH 5.5 (4.6-8.0) Ur Specific Buford 1.025 (1.005-1.030) Urine Protein Trace A (Negative) Urine Glucose (UA) >=1000 A (Negative) mg/dL Urine Ketones Negative (Negative) Urine Blood Negative (Negative) Urine Nitrite Negative (Negative) Urine Bilirubin Negative (Negative) Urine Urobilinogen 0.2 (0.2) mg/dL Ur Leukocyte Esterase Negative (Negative) U Hyaline Cast (Auto) NONE SEEN (0-2) /LPF Urine Microscopic RBC 0-2 (0-5) /HPF Urine Microscopic WBC 0-2 (0-5) /HPF Ur Epithelial Cells None Seen (None Seen) /HPF Urine Bacteria None Seen (None Seen) /HPF Urine Culture Reflexed NO (NO) Salicylates (2-20) mg/dL Urine Opiates Level NEGATIVE (NEGATIVE) Ur Methadone NEGATIVE (NEGATIVE) Acetaminophen (10-30) ug/ml Urine Barbiturates NEGATIVE (NEGATIVE) Ur Phencyclidine (PCP) NEGATIVE (NEGATIVE) Urine Amphetamine NEGATIVE (NEGATIVE) U Benzodiazepine Level NEGATIVE (NEGATIVE) Urine Cocaine NEGATIVE (NEGATIVE) Urine Marijuana (THC) NEGATIVE (NEGATIVE) Ethyl Alcohol (0-10) mg/dL 12/03/24 12/03/24 12/03/24 Range/Units 14:24 14:25 14:25 WBC 12.7 H (4.23-9.07) x10^3/uL RBC 5.33 (4.63-6.08) x10^6/uL Hgb 14.9 (13.7-17.5) g/dL Hct 43.3 (40.1-51.0) % MCV 81.2 (79.0-92.2) fL MCH 28.0 (25.7-32.2) pg MCHC 34.4 (32.3-36.5) g/dL RDW 13.1 (11.6-14.4) % Plt Count 332 (163-337) x10^3/uL MPV 9.1 L (9.4-12.4) fL Gran % 80.1 H (34.0-67.9) % Immature Gran % (Auto) 0.4 (0.001-0.429) % Nucleat RBC Rel Count 0.0 (0.00-0.2) % Eos # (Auto) 0.04 (0.04-0.54) x10^3/uL Immature Gran # (Auto) 0.05 H (0.001-0.031) x10^3u/L Absolute Lymphs (auto) 1.74 (1.32-3.57) x10^3/uL Absolute Monos (auto) 0.67 (0.30-0.82) x10^3/uL Absolute Nucleated RBC 0.00 (0.00-0.012) x10^3u/L Lymphocytes % 13.7 L (21.8-53.1) % Monocytes % 5.3 (5.3-12.2) % Eosinophils % 0.3 L (0.8-7.0) % Basophils % 0.2 (0.2-1.2) % Absolute Granulocytes 10.16 H (1.78-5.38) x10^3/uL Basophils # 0.03 (0.01-0.08) x10^3/uL pO2/FiO2 Ratio 21.0 % VBG pH 7.43 H (7.32-7.42) VBG pCO2 at Pat Temp 43 (42-55) mm/Hg VBG pO2 at Pat Temp 60 H (25-40) mm/Hg VBG HCO3 28.5 H (22-28) meq/L VBG O2 Sat (Bhavik) 92.0 L (95-100) VBG Base Excess 3.6 H (-2.0-2.0) VBG Hemoglobin 15.8 VBG Carboxyhemoglobin 3.6 (0.0-6.9) % T HGB POC Potassium 3.7 (3.5-5.1) Sodium 140 (135-145) mmol/L Potassium 3.7 (3.5-5.1) mmol/L Chloride 103 (98-107) mmol/L Carbon Dioxide 26 (22-30) mmol/L Anion Gap 14.9 (5-15) MEQ/L BUN 12 (9-20) mg/dL Creatinine 0.87 (0.66-1.25) mg/dL Estimated GFR 120.5 ML/MIN Glucose 135 H (74-106) mg/dL POC Glucometer (74 to 106) mg/dL Hemoglobin A1c (4.5-6.0) % Lactic Acid (0.4-2.0) Calcium 9.9 (8.4-10.2) mg/dL Total Bilirubin 0.30 (0.2-1.3) mg/dL AST 20 (17-59) U/L ALT 16 (0-50) U/L Alkaline Phosphatase 65 (38-126) U/L Troponin I (0.000-0.033) ng/mL Serum Total Protein 7.2 (6.3-8.2) g/dL Albumin 4.4 (3.5-5.0) g/dL Urine Color (Yellow) Urine Appearance (Clear) Urine pH (4.6-8.0) Ur Specific Buford (1.005-1.030) Urine Protein (Negative) Urine Glucose (UA) (Negative) mg/dL Urine Ketones (Negative) Urine Blood (Negative) Urine Nitrite (Negative) Urine Bilirubin (Negative) Urine Urobilinogen (0.2) mg/dL Ur Leukocyte Esterase (Negative) U Hyaline Cast (Auto) (0-2) /LPF Urine Microscopic RBC (0-5) /HPF Urine Microscopic WBC (0-5) /HPF Ur Epithelial Cells (None Seen) /HPF Urine Bacteria (None Seen) /HPF Urine Culture Reflexed (NO) Salicylates < 1.0 L (2-20) mg/dL Urine Opiates Level (NEGATIVE) Ur Methadone (NEGATIVE) Acetaminophen < 10 L (10-30) ug/ml Urine Barbiturates (NEGATIVE) Ur Phencyclidine (PCP) (NEGATIVE) Urine Amphetamine (NEGATIVE) U Benzodiazepine Level (NEGATIVE) Urine Cocaine (NEGATIVE) Urine Marijuana (THC) (NEGATIVE) Ethyl Alcohol < 10 (0-10) mg/dL 12/03/24 12/03/24 12/03/24 Range/Units 14:25 15:04 16:13 WBC (4.23-9.07) x10^3/uL RBC (4.63-6.08) x10^6/uL Hgb (13.7-17.5) g/dL Hct (40.1-51.0) % MCV (79.0-92.2) fL MCH (25.7-32.2) pg MCHC (32.3-36.5) g/dL RDW (11.6-14.4) % Plt Count (163-337) x10^3/uL MPV (9.4-12.4) fL Gran % (34.0-67.9) % Immature Gran % (Auto) (0.001-0.429) % Nucleat RBC Rel Count (0.00-0.2) % Eos # (Auto) (0.04-0.54) x10^3/uL Immature Gran # (Auto) (0.001-0.031) x10^3u/L Absolute Lymphs (auto) (1.32-3.57) x10^3/uL Absolute Monos (auto) (0.30-0.82) x10^3/uL Absolute Nucleated RBC (0.00-0.012) x10^3u/L Lymphocytes % (21.8-53.1) % Monocytes % (5.3-12.2) % Eosinophils % (0.8-7.0) % Basophils % (0.2-1.2) % Absolute Granulocytes (1.78-5.38) x10^3/uL Basophils # (0.01-0.08) x10^3/uL pO2/FiO2 Ratio % VBG pH (7.32-7.42) VBG pCO2 at Pat Temp (42-55) mm/Hg VBG pO2 at Pat Temp (25-40) mm/Hg VBG HCO3 (22-28) meq/L VBG O2 Sat (Bhavik) (95-100) VBG Base Excess (-2.0-2.0) VBG Hemoglobin VBG Carboxyhemoglobin (0.0-6.9) % T HGB POC Potassium (3.5-5.1) Sodium (135-145) mmol/L Potassium (3.5-5.1) mmol/L Chloride (98-107) mmol/L Carbon Dioxide (22-30) mmol/L Anion Gap (5-15) MEQ/L BUN (9-20) mg/dL Creatinine (0.66-1.25) mg/dL Estimated GFR ML/MIN Glucose (74-106) mg/dL POC Glucometer 122 H 118 H (74 to 106) mg/dL Hemoglobin A1c (4.5-6.0) % Lactic Acid (0.4-2.0) Calcium (8.4-10.2) mg/dL Total Bilirubin (0.2-1.3) mg/dL AST (17-59) U/L ALT (0-50) U/L Alkaline Phosphatase (38-126) U/L Troponin I < 0.012 (0.000-0.033) ng/mL Serum Total Protein (6.3-8.2) g/dL Albumin (3.5-5.0) g/dL Urine Color (Yellow) Urine Appearance (Clear) Urine pH (4.6-8.0) Ur Specific Buford (1.005-1.030) Urine Protein (Negative) Urine Glucose (UA) (Negative) mg/dL Urine Ketones (Negative) Urine Blood (Negative) Urine Nitrite (Negative) Urine Bilirubin (Negative) Urine Urobilinogen (0.2) mg/dL Ur Leukocyte Esterase (Negative) U Hyaline Cast (Auto) (0-2) /LPF Urine Microscopic RBC (0-5) /HPF Urine Microscopic WBC (0-5) /HPF Ur Epithelial Cells (None Seen) /HPF Urine Bacteria (None Seen) /HPF Urine Culture Reflexed (NO) Salicylates (2-20) mg/dL Urine Opiates Level (NEGATIVE) Ur Methadone (NEGATIVE) Acetaminophen (10-30) ug/ml Urine Barbiturates (NEGATIVE) Ur Phencyclidine (PCP) (NEGATIVE) Urine Amphetamine (NEGATIVE) U Benzodiazepine Level (NEGATIVE) Urine Cocaine (NEGATIVE) Urine Marijuana (THC) (NEGATIVE) Ethyl Alcohol (0-10) mg/dL 12/03/24 12/03/24 12/03/24 Range/Units 17:45 18:38 20:59 WBC (4.23-9.07) x10^3/uL RBC (4.63-6.08) x10^6/uL Hgb (13.7-17.5) g/dL Hct (40.1-51.0) % MCV (79.0-92.2) fL MCH (25.7-32.2) pg MCHC (32.3-36.5) g/dL RDW (11.6-14.4) % Plt Count (163-337) x10^3/uL MPV (9.4-12.4) fL Gran % (34.0-67.9) % Immature Gran % (Auto) (0.001-0.429) % Nucleat RBC Rel Count (0.00-0.2) % Eos # (Auto) (0.04-0.54) x10^3/uL Immature Gran # (Auto) (0.001-0.031) x10^3u/L Absolute Lymphs (auto) (1.32-3.57) x10^3/uL Absolute Monos (auto) (0.30-0.82) x10^3/uL Absolute Nucleated RBC (0.00-0.012) x10^3u/L Lymphocytes % (21.8-53.1) % Monocytes % (5.3-12.2) % Eosinophils % (0.8-7.0) % Basophils % (0.2-1.2) % Absolute Granulocytes (1.78-5.38) x10^3/uL Basophils # (0.01-0.08) x10^3/uL pO2/FiO2 Ratio % VBG pH (7.32-7.42) VBG pCO2 at Pat Temp (42-55) mm/Hg VBG pO2 at Pat Temp (25-40) mm/Hg VBG HCO3 (22-28) meq/L VBG O2 Sat (Bhavik) (95-100) VBG Base Excess (-2.0-2.0) VBG Hemoglobin VBG Carboxyhemoglobin (0.0-6.9) % T HGB POC Potassium (3.5-5.1) Sodium (135-145) mmol/L Potassium (3.5-5.1) mmol/L Chloride (98-107) mmol/L Carbon Dioxide (22-30) mmol/L Anion Gap (5-15) MEQ/L BUN (9-20) mg/dL Creatinine (0.66-1.25) mg/dL Estimated GFR ML/MIN Glucose (74-106) mg/dL POC Glucometer 130 H 233 H (74 to 106) mg/dL Hemoglobin A1c (4.5-6.0) % Lactic Acid (0.4-2.0) Calcium (8.4-10.2) mg/dL Total Bilirubin (0.2-1.3) mg/dL AST (17-59) U/L ALT (0-50) U/L Alkaline Phosphatase (38-126) U/L Troponin I < 0.012 (0.000-0.033) ng/mL Serum Total Protein (6.3-8.2) g/dL Albumin (3.5-5.0) g/dL Urine Color (Yellow) Urine Appearance (Clear) Urine pH (4.6-8.0) Ur Specific Buford (1.005-1.030) Urine Protein (Negative) Urine Glucose (UA) (Negative) mg/dL Urine Ketones (Negative) Urine Blood (Negative) Urine Nitrite (Negative) Urine Bilirubin (Negative) Urine Urobilinogen (0.2) mg/dL Ur Leukocyte Esterase (Negative) U Hyaline Cast (Auto) (0-2) /LPF Urine Microscopic RBC (0-5) /HPF Urine Microscopic WBC (0-5) /HPF Ur Epithelial Cells (None Seen) /HPF Urine Bacteria (None Seen) /HPF Urine Culture Reflexed (NO) Salicylates (2-20) mg/dL Urine Opiates Level (NEGATIVE) Ur Methadone (NEGATIVE) Acetaminophen (10-30) ug/ml Urine Barbiturates (NEGATIVE) Ur Phencyclidine (PCP) (NEGATIVE) Urine Amphetamine (NEGATIVE) U Benzodiazepine Level (NEGATIVE) Urine Cocaine (NEGATIVE) Urine Marijuana (THC) (NEGATIVE) Ethyl Alcohol (0-10) mg/dL 12/03/24 12/04/24 12/04/24 Range/Units 22:10 00:17 03:37 WBC (4.23-9.07) x10^3/uL RBC (4.63-6.08) x10^6/uL Hgb (13.7-17.5) g/dL Hct (40.1-51.0) % MCV (79.0-92.2) fL MCH (25.7-32.2) pg MCHC (32.3-36.5) g/dL RDW (11.6-14.4) % Plt Count (163-337) x10^3/uL MPV (9.4-12.4) fL Gran % (34.0-67.9) % Immature Gran % (Auto) (0.001-0.429) % Nucleat RBC Rel Count (0.00-0.2) % Eos # (Auto) (0.04-0.54) x10^3/uL Immature Gran # (Auto) (0.001-0.031) x10^3u/L Absolute Lymphs (auto) (1.32-3.57) x10^3/uL Absolute Monos (auto) (0.30-0.82) x10^3/uL Absolute Nucleated RBC (0.00-0.012) x10^3u/L Lymphocytes % (21.8-53.1) % Monocytes % (5.3-12.2) % Eosinophils % (0.8-7.0) % Basophils % (0.2-1.2) % Absolute Granulocytes (1.78-5.38) x10^3/uL Basophils # (0.01-0.08) x10^3/uL pO2/FiO2 Ratio % VBG pH (7.32-7.42) VBG pCO2 at Pat Temp (42-55) mm/Hg VBG pO2 at Pat Temp (25-40) mm/Hg VBG HCO3 (22-28) meq/L VBG O2 Sat (Bhavik) (95-100) VBG Base Excess (-2.0-2.0) VBG Hemoglobin VBG Carboxyhemoglobin (0.0-6.9) % T HGB POC Potassium (3.5-5.1) Sodium (135-145) mmol/L Potassium (3.5-5.1) mmol/L Chloride (98-107) mmol/L Carbon Dioxide (22-30) mmol/L Anion Gap (5-15) MEQ/L BUN (9-20) mg/dL Creatinine (0.66-1.25) mg/dL Estimated GFR ML/MIN Glucose (74-106) mg/dL POC Glucometer 300 H 268 H (74 to 106) mg/dL Hemoglobin A1c (4.5-6.0) % Lactic Acid (0.4-2.0) Calcium (8.4-10.2) mg/dL Total Bilirubin (0.2-1.3) mg/dL AST (17-59) U/L ALT (0-50) U/L Alkaline Phosphatase (38-126) U/L Troponin I < 0.012 (0.000-0.033) ng/mL Serum Total Protein (6.3-8.2) g/dL Albumin (3.5-5.0) g/dL Urine Color (Yellow) Urine Appearance (Clear) Urine pH (4.6-8.0) Ur Specific Buford (1.005-1.030) Urine Protein (Negative) Urine Glucose (UA) (Negative) mg/dL Urine Ketones (Negative) Urine Blood (Negative) Urine Nitrite (Negative) Urine Bilirubin (Negative) Urine Urobilinogen (0.2) mg/dL Ur Leukocyte Esterase (Negative) U Hyaline Cast (Auto) (0-2) /LPF Urine Microscopic RBC (0-5) /HPF Urine Microscopic WBC (0-5) /HPF Ur Epithelial Cells (None Seen) /HPF Urine Bacteria (None Seen) /HPF Urine Culture Reflexed (NO) Salicylates (2-20) mg/dL Urine Opiates Level (NEGATIVE) Ur Methadone (NEGATIVE) Acetaminophen (10-30) ug/ml Urine Barbiturates (NEGATIVE) Ur Phencyclidine (PCP) (NEGATIVE) Urine Amphetamine (NEGATIVE) U Benzodiazepine Level (NEGATIVE) Urine Cocaine (NEGATIVE) Urine Marijuana (THC) (NEGATIVE) Ethyl Alcohol (0-10) mg/dL 12/04/24 12/04/24 12/04/24 Range/Units 04:51 04:51 04:51 WBC 8.7 (4.23-9.07) x10^3/uL RBC 5.06 (4.63-6.08) x10^6/uL Hgb 13.9 (13.7-17.5) g/dL Hct 41.3 (40.1-51.0) % MCV 81.6 (79.0-92.2) fL MCH 27.5 (25.7-32.2) pg MCHC 33.7 (32.3-36.5) g/dL RDW 13.2 (11.6-14.4) % Plt Count 326 (163-337) x10^3/uL MPV 9.6 (9.4-12.4) fL Gran % 60.7 (34.0-67.9) % Immature Gran % (Auto) 0.2 (0.001-0.429) % Nucleat RBC Rel Count 0.0 (0.00-0.2) % Eos # (Auto) 0.06 (0.04-0.54) x10^3/uL Immature Gran # (Auto) 0.02 (0.001-0.031) x10^3u/L Absolute Lymphs (auto) 2.78 (1.32-3.57) x10^3/uL Absolute Monos (auto) 0.55 (0.30-0.82) x10^3/uL Absolute Nucleated RBC 0.00 (0.00-0.012) x10^3u/L Lymphocytes % 31.9 (21.8-53.1) % Monocytes % 6.3 (5.3-12.2) % Eosinophils % 0.7 L (0.8-7.0) % Basophils % 0.2 (0.2-1.2) % Absolute Granulocytes 5.28 (1.78-5.38) x10^3/uL Basophils # 0.02 (0.01-0.08) x10^3/uL pO2/FiO2 Ratio % VBG pH (7.32-7.42) VBG pCO2 at Pat Temp (42-55) mm/Hg VBG pO2 at Pat Temp (25-40) mm/Hg VBG HCO3 (22-28) meq/L VBG O2 Sat (Bhavik) (95-100) VBG Base Excess (-2.0-2.0) VBG Hemoglobin VBG Carboxyhemoglobin (0.0-6.9) % T HGB POC Potassium (3.5-5.1) Sodium 137 (135-145) mmol/L Potassium 4.5 D (3.5-5.1) mmol/L Chloride 102 (98-107) mmol/L Carbon Dioxide 25 (22-30) mmol/L Anion Gap 13.9 (5-15) MEQ/L BUN 17 (9-20) mg/dL Creatinine 1.00 (0.66-1.25) mg/dL Estimated GFR 105.1 ML/MIN Glucose 265 H (74-106) mg/dL POC Glucometer (74 to 106) mg/dL Hemoglobin A1c 10.15 H (4.5-6.0) % Lactic Acid (0.4-2.0) Calcium 9.3 (8.4-10.2) mg/dL Total Bilirubin 0.50 (0.2-1.3) mg/dL AST 22 (17-59) U/L ALT 14 (0-50) U/L Alkaline Phosphatase 57 (38-126) U/L Troponin I (0.000-0.033) ng/mL Serum Total Protein 6.1 L (6.3-8.2) g/dL Albumin 3.8 (3.5-5.0) g/dL Urine Color (Yellow) Urine Appearance (Clear) Urine pH (4.6-8.0) Ur Specific [place] (1.005-1.030) Urine Protein (Negative) Urine Glucose (UA) (Negative) mg/dL Urine Ketones (Negative) Urine Blood (Negative) Urine Nitrite (Negative) Urine Bilirubin (Negative) Urine Urobilinogen (0.2) mg/dL Ur Leukocyte Esterase (Negative) U Hyaline Cast (Auto) (0-2) /LPF Urine Microscopic RBC (0-5) /HPF Urine Microscopic WBC (0-5) /HPF Ur Epithelial Cells (None Seen) /HPF Urine Bacteria (None Seen) /HPF Urine Culture Reflexed (NO) Salicylates (2-20) mg/dL Urine Opiates Level (NEGATIVE) Ur Methadone (NEGATIVE) Acetaminophen (10-30) ug/ml Urine Barbiturates (NEGATIVE) Ur Phencyclidine (PCP) (NEGATIVE) Urine Amphetamine (NEGATIVE) U Benzodiazepine Level (NEGATIVE) Urine Cocaine (NEGATIVE) Urine Marijuana (THC) (NEGATIVE) Ethyl Alcohol (0-10) mg/dL 12/04/24 12/04/24 Range/Units 06:19 10:15 WBC (4.23-9.07) x10^3/uL RBC (4.63-6.08) x10^6/uL Hgb (13.7-17.5) g/dL Hct (40.1-51.0) % MCV (79.0-92.2) fL MCH (25.7-32.2) pg MCHC (32.3-36.5) g/dL RDW (11.6-14.4) % Plt Count (163-337) x10^3/uL MPV (9.4-12.4) fL Gran % (34.0-67.9) % Immature Gran % (Auto) (0.001-0.429) % Nucleat RBC Rel Count (0.00-0.2) % Eos # (Auto) (0.04-0.54) x10^3/uL Immature Gran # (Auto) (0.001-0.031) x10^3u/L Absolute Lymphs (auto) (1.32-3.57) x10^3/uL Absolute Monos (auto) (0.30-0.82) x10^3/uL Absolute Nucleated RBC (0.00-0.012) x10^3u/L Lymphocytes % (21.8-53.1) % Monocytes % (5.3-12.2) % Eosinophils % (0.8-7.0) % Basophils % (0.2-1.2) % Absolute Granulocytes (1.78-5.38) x10^3/uL Basophils # (0.01-0.08) x10^3/uL pO2/FiO2 Ratio % VBG pH (7.32-7.42) VBG pCO2 at Pat Temp (42-55) mm/Hg VBG pO2 at Pat Temp (25-40) mm/Hg VBG HCO3 (22-28) meq/L VBG O2 Sat (Bhavik) (95-100) VBG Base Excess (-2.0-2.0) VBG Hemoglobin VBG Carboxyhemoglobin (0.0-6.9) % T HGB POC Potassium (3.5-5.1) Sodium (135-145) mmol/L Potassium (3.5-5.1) mmol/L Chloride (98-107) mmol/L Carbon Dioxide (22-30) mmol/L Anion Gap (5-15) MEQ/L BUN (9-20) mg/dL Creatinine (0.66-1.25) mg/dL Estimated GFR ML/MIN Glucose (74-106) mg/dL POC Glucometer 226 H 352 H (74 to 106) mg/dL Hemoglobin A1c (4.5-6.0) % Lactic Acid (0.4-2.0) Calcium (8.4-10.2) mg/dL Total Bilirubin (0.2-1.3) mg/dL AST (17-59) U/L ALT (0-50) U/L Alkaline Phosphatase (38-126) U/L Troponin I (0.000-0.033) ng/mL Serum Total Protein (6.3-8.2) g/dL Albumin (3.5-5.0) g/dL Urine Color (Yellow) Urine Appearance (Clear) Urine pH (4.6-8.0) Ur Specific [place] (1.005-1.030) Urine Protein (Negative) Urine Glucose (UA) (Negative) mg/dL Urine Ketones (Negative) Urine Blood (Negative) Urine Nitrite (Negative) Urine Bilirubin (Negative) Urine Urobilinogen (0.2) mg/dL Ur Leukocyte Esterase (Negative) U Hyaline Cast (Auto) (0-2) /LPF Urine Microscopic RBC (0-5) /HPF Urine Microscopic WBC (0-5) /HPF Ur Epithelial Cells (None Seen) /HPF Urine Bacteria (None Seen) /HPF Urine Culture Reflexed (NO) Salicylates (2-20) mg/dL Urine Opiates Level (NEGATIVE) Ur Methadone (NEGATIVE) Acetaminophen (10-30) ug/ml Urine Barbiturates (NEGATIVE) Ur Phencyclidine (PCP) (NEGATIVE) Urine Amphetamine (NEGATIVE) U Benzodiazepine Level (NEGATIVE) Urine Cocaine (NEGATIVE) Urine Marijuana (THC) (NEGATIVE) Ethyl Alcohol (0-10) mg/dL Micro Results-Entire Visit: Accuchecks Date 12/04/24 Date 12/04/24 Date 12/04/24 Date 12/04/24 Date 12/03/24 Date 12/03/24 Date 12/03/24 Date 12/03/24 Date 12/03/24 Time 03:00 Time 00:00 Time 21:00 Time 17:49 Time 16:18 Time 15:04 Time 14:14 - Radiology Exams Ordered Rad Exams-Entire Visit: Radiology Procedures Category Date Time Status CERVICAL SPINE WO CONTRAST [CT] Stat Exams 12/03/24 14:15 Completed HEAD WITHOUT CONTRAST [CT] Stat Exams 12/03/24 14:15 Completed Discharge Exam General Appearance: no apparent distress Neurologic Exam: alert, oriented x 3, cooperative Eye Exam: PERRL Ears, Nose, Throat Exam: normal ENT inspection Neck Exam: normal inspection Respiratory Exam: normal breath sounds, lungs clear Cardiovascular Exam: regular rate/rhythm, normal heart sounds Gastrointestinal/Abdomen Exam: soft, normal bowel sounds Male Genitalia Exam: deferred Rectal Exam: deferred Back Exam: normal inspection Extremity Exam: normal inspection Skin Exam: normal color Final Diagnosis/Problem List - Final Discharge Diagnosis/Problem (1) Hypoglycemia Current Visit: No Status: Acute Assessment & Plan: Resolved, secondary to insulin mismanagement and nonadherence. Code(s): E16.2 - HYPOGLYCEMIA, UNSPECIFIED (2) Diabetes mellitus type 1, uncontrolled, insulin dependent Current Visit: No Status: Chronic Assessment & Plan: Ongoing; initiated on NPH 70/30 bid (breakfast and before dinner) with outpatient endocrinology follow-up arranged. -All supplies glucometer, strips, lancets, pen needles and glucagon sent out -Education provided (3) Depression with anxiety Current Visit: No Status: Acute Assessment & Plan: Stable on home medications Code(s): F41.8 - OTHER SPECIFIED ANXIETY DISORDERS (4) Leukocytosis Current Visit: No Status: Acute Assessment & Plan: -resolved Code(s): D72.829 - ELEVATED WHITE BLOOD CELL COUNT, UNSPECIFIED - Discharge Discharge Date: 12/04/24 Disposition: Home, Self-Care Condition: Stable Prescriptions: New Blood-Glucose Meter [Accu-Chek Guide Monitor System] 1 each ACHS #1 misc Blood Sugar Diagnostic [Accu-Chek Guide Test Strip] 1 each ACHS #150 strip Lancets [Accu-Chek Softclix] 1 each ACHS #150 misc Glucagon [Glucagon Emergency Kit] See Rx Instructions .ROUTE .COMPLEX 30 Days #1 kit Insulin NPH Hum/Reg Insulin Hm [Novolin 70-30 Flexpen] 20 unit SQ BID PRN 30 Days #120 unit MDD 40 Pen Needle, Diabetic [Pen Needle] See Rx Instructions .ROUTE .COMPLEX 30 Days #1 kit Continue Lisinopril 5 mg [Zestril 5 MG] 5 mg PO DAILY 30 Days #30 tablet Discontinued Insulin NPH Human Isophane [Novolin N] 40 units SQ BID Follow up with: DOCTOR,NO FAMILY [Primary Care Provider, UNKNOWN] ADDY HESTER [NON-STAFF PHY W/O PRIVILEGES, UNKNOWN]
[2024-12-04 11:54] VITALS: BP 135/79; PULSE 91; TEMP 97.9; O2SAT 96
[2024-12-04] MEDS ORDERED: HUMULIN R SQ SCH ×2 (12:00→17:00)
[2024-12-04] MEDS: HUMALOG SQ PRN (12:06)
[2024-12-04 13:05] VITALS: RESP 20
[2024-12-04] MEDS: TYLENOL 325 MG PO PRN (13:48)
[2024-12-04] MEDS ORDERED: Novolin N SQ SCH (18:00)
[2024-12-05] MEDS ORDERED: Novolin N SQ SCH (08:00)
[2024-12-05] MEDS ORDERED: HUMULIN R SQ SCH (08:00)
== END 2024-12-04 14:36 | disposition home or self-care (01) ==
LOC: ED 14:01 → MED SURG 17:30
PROVIDERS: ADMIT Internal Medicine; ATTEND Internal Medicine
DX: E10.649 Type 1 diabetes mellitus with hypoglycemia without coma (principal); F41.8 Other specified anxiety disorders; D72.829 Elevated white blood cell count, unspecified; I10 Essential (primary) hypertension; F32.A Depression, unspecified; Z79.899 Other long term (current) drug therapy
CPT/HCPCS: 36415; 70450; 72125; 80053; 80143; 80179; 80307; 81001; 82077; 82805; 82947; 83036; 83605; 84484; 85025; 93005; 93268; 96374; 96375; 99285; J1200; J1817; J1885; J2405; A9270-GY; G0378

== ENCOUNTER 2025-06-25 15:56 | Emergency (ER) | payer OTHER ==
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
[2025-06-25 16:11] VITALS: TEMP 97.9
[2025-06-25 16:37] LABS: BASOPHIL % 0.2 % (0.2-1.2); Basophil (Absolute #) 0.02 x10^3/uL (0.01-0.08); Eosinophil (Absolute #) 0.06 x10^3/uL (0.04-0.54); Hematocrit 45.1 % (40.1-51.0); Hemoglobin 15.1 g/dL (13.7-17.5); IMMATURE GRAN # 0.04 x10^3u/L (0.001-0.031); IMMATURE GRAN % 0.3 % (0.001-0.429); Lymphocyte (Absolute #) 1.41 x10^3/uL (1.32-3.57); Mean Corpuscular Hemoglobin 27.9 pg (25.7-32.2); Mean Corpuscular Hgb Concent. 33.5 g/dL (32.3-36.5); Monocyte (Absolute #) 0.38 x10^3/uL (0.30-0.82); NUCLEATED RBC # 0.00 x10^3u/L (0.00-0.012); NUCLEATED RBC % 0.0 % (0.00-0.2); Platelet Count 321 x10^3/uL (163-337); Red Blood Count 5.42 x10^6/uL (4.63-6.08); White Blood Count 12.6 x10^3/uL (4.23-9.07)
--- NOTE | 2025-06-25 16:43 | XRAY ---
Indication: Chest pain. Comparison: January 04, 2022 Portable chest again demonstrates normal heart, lungs, and bony thorax.
[2025-06-25 16:50] LABS: Calcium 9.9 mg/dL (8.4-10.2); Carbon Dioxide 18.0 mmol/L (22-30); Creatinine 1 1.14 mg/dL (0.66-1.25); EST GLOMERULAR FILTRATION RATE 89.3 ML/MIN; Glucose 312.0 mg/dL (74-106); Potassium 4.3 mmol/L (3.5-5.1); SGOT/AST 23.0 U/L (17-59); SGPT/ALT 20.0 U/L (0-50); Total Protein 7.7 g/dL (6.3-8.2)
--- NOTE | 2025-06-25 17:09 | XRAY ---
Indication: Severe headache. Status post fall 4 days ago. Multiple contiguous axial images obtained through the head without contrast. Comparison: December 03, 2024 Normal appearing brain parenchyma, ventricles, and bony calvarium. Visualized paranasal sinuses and mastoid air cells are clear. Impression: Continued normal CT head without contrast exam.
[2025-06-25] MEDS ORDERED: TYLENOL 325 MG ONE (17:59)
[2025-06-25] MEDS: TYLENOL 325 MG PO ONE (18:00)
[2025-06-25 18:19] VITALS: BP 136/90; PULSE 119; RESP 20; O2SAT 97
== END 2025-06-25 18:25 | disposition home or self-care (01) ==
LOC: ED 15:56
DX: Z04.3 Encounter for examination and observation following other accident (principal); E10.65 Type 1 diabetes mellitus with hyperglycemia; R51.9 Headache, unspecified; R07.89 Other chest pain; I10 Essential (primary) hypertension